=== PATIENT | female | born 1955 | race Caucasian/White ===

== ENCOUNTER 2020-05-11 10:19 | Outpatient (REF) | payer MEDICARE, BC, SELFPAY ==
[2020-05-11 10:32] LABS: MANUAL DIFF FLAG NO
[2020-05-11 10:53] LABS: Basophils Absolute Auto 0.1 X10*3/uL (0.0-0.2); Basophils Percent Auto 0.8 % (0-2); Eosinophils Absolute Auto 0.2 X10*3/uL (0.0-0.4); Eosinophils Percent Auto 2.3 % (0-4); Hematocrit 44.7 % (37-47); Hemoglobin 14.5 g/dl (12.0-16.0); Imm Gran Abs Auto 0.02 X10*3/uL (0.00-0.03); Imm Gran Pct Auto 0.3 % (0.0-0.4); Lymphocytes Absolute Auto 2.5 X10*3/uL (1.2-4.9); Lymphocytes Percent Auto 31.1 % (20-40); Mean Corpuscular HGB Conc 32.4 g/dl (31.0-35.0); Mean Corpuscular Hemoglobin 30.6 pg (27.0-33.0); Mean Corpuscular Volume 94.3 fL (80-98); Mean Platelet Volume 10.6 fL (9.4-12.3); Monocytes Absolute Auto 0.8 X10*3/uL (0.1-1.2); Monocytes Percent Auto 10.5 % (2-11); Neutrophils Absolute Auto 4.4 X10*3/uL (2.0-8.3); Platelet Count 324 X10*3/uL (160-400); Red Blood Count 4.74 X10*6/uL (4.20-5.50); Red Cell Distribution Width 13.1 % (11.0-16.0); White Blood Count 7.9 X10*3/uL (4.8-10.8)
[2020-05-11 11:04] LABS: Estimated Average Glucose 108 mg/dL; Hemoglobin A1c % 5.4 %
[2020-05-11 11:06] LABS: Glucose Urine UA NEG (NEG); Leukocyte Esterase Urine 1+ (NEG); Nitrite Urine NEG (NEG); PH 5.5 (5.0-8.0); Specific Gravity - Urine 1.025 (1.005-1.025); Urine Blood TRACE (NEG); Urine Ketones NEG (NEG); Urine Protein NEG (NEG-TRACE)
[2020-05-11 11:09] LABS: Appearance Urine HAZY; Color Urine YELLOW
[2020-05-11 11:38] LABS: RBC Urine 0-2 /HPF (0); Squamous Epithelial Cell Urine TRACE /LPF
[2020-05-11 11:39] LABS: Calcium Oxalate Crystals Urine 3+ /LPF
[2020-05-11 11:44] LABS: Alanine Aminotransferase 19 U/L (0-31); Albumin Level 4.2 g/dL (3.5-5.0); Alkaline Phosphatase 121 U/L (39-117); Anion Gap 13 (12-20); Aspartate Amino Transferase 22 U/L (5-31); Bilirubin Total 0.6 mg/dL (0.0-1.0); Blood Urea Nitrogen 14 mg/dL (9-16); Calcium 9.1 mg/dL (8.4-10.2); Carbon Dioxide 24 mmol/L (22-29); Chloride 107 mmol/L (96-108); Cholesterol 232 mg/dL; Estimated Glomerular Filt Rate > 60; Glucose Fasting 98 mg/dL (60-99); HDL Cholesterol 64 mg/dL; LDL Cholesterol Calculated 147 mg/dl; Potassium 4.3 mmol/L (3.3-5.1); Sodium 140 mmol/L (135-145); Triglycerides 106 mg/dL
[2020-05-11 11:51] LABS: Vitamin D 25-OH Total 15.4 ng/mL (>30)
== END 2020-05-11 10:20 | disposition home or self-care (01) ==
LOC: HO.LNP 10:19
PROVIDERS: Visit Provider Internal Medicine
DX: E55.9 Vitamin D deficiency, unspecified (principal); E78.00 Pure hypercholesterolemia, unspecified; R73.03 Prediabetes; M85.80 Other specified disorders of bone density and structure, unspecified site
CPT/HCPCS: 80053; 80061; 81001; 81003; 82306; 83036; 85025

== ENCOUNTER 2020-06-20 17:30 | Outpatient (REF) | payer MEDICARE, BC, SELFPAY | END 2020-06-20 17:31 | disposition home or self-care (01) | LOC: HO.LNP 17:30 | PROVIDERS: Visit Provider Internal Medicine | DX: Z13.89 Encounter for screening for other disorder (principal) | CPT/HCPCS: 87324; 87449 ==

== ENCOUNTER 2020-06-28 10:38 | Outpatient (REF) | payer MEDICARE, BC, SELFPAY ==
[2020-06-28 11:34] LABS: Glucose Urine UA NEG (NEG); Leukocyte Esterase Urine 1+ (NEG); Nitrite Urine NEG (NEG); PH 6.5 (5.0-8.0); Urine Blood NEG (NEG); Urine Ketones NEG (NEG); Urine Protein NEG (NEG-TRACE)
[2020-06-28 11:38] LABS: Appearance Urine CLEAR; Color Urine YELLOW
[2020-06-28 13:16] LABS: RBC Urine 0 /HPF (0); Squamous Epithelial Cell Urine 1+ /LPF
== END 2020-06-28 10:39 | disposition home or self-care (01) ==
LOC: HO.LNP 10:38
PROVIDERS: Visit Provider Internal Medicine
DX: N39.0 Urinary tract infection, site not specified (principal)
CPT/HCPCS: 81001; 87086

== ENCOUNTER 2020-11-30 11:23 | Outpatient (REF) | payer MEDICARE, BC, SELFPAY ==
--- NOTE | ~2020-11-30 | US_ITS ---
EXAMINATION: US VENOUS ULTRASOUND WITH DOPPLER LOWER EXTREMITY, BILATERAL CLINICAL INFORMATION: Pulmonary emboli COMPARISON: None TECHNIQUE: Ultrasound of the deep veins is performed from the hip to the calf with compression sonography and color and pulse Doppler assessment. Spectral analysis with color-flow imaging is performed. FINDINGS: RIGHT: There is normal venous compression and respiratory variation and augmented flow. The visualized common femoral vein, superficial femoral vein, profunda femoral vein, popliteal vein, and the trifurcation region shows no evidence of deep venous thrombosis. There is no popliteal fossa cyst. LEFT: There is normal venous compression and respiratory variation and augmented flow. The visualized common femoral vein, superficial femoral vein, profunda femoral vein, popliteal vein, and the trifurcation region shows no evidence of deep venous thrombosis. There is no popliteal fossa cyst. US/US venous duplex LE BI IMPRESSION: No DVT demonstrated in the bilateral lower extremity.
== END 2020-11-30 11:24 | disposition home or self-care (01) ==
LOC: HO.HMGCX 11:23
PROVIDERS: PCP Internal Medicine; Visit Provider Internal Medicine
DX: I26.94 Multiple subsegmental thrombotic pulmonary emboli without acute cor pulmonale (principal)
CPT/HCPCS: 93970

== ENCOUNTER 2021-05-21 10:46 | Outpatient (REF) | payer MEDICARE, SELFPAY ==
[2021-05-21 10:51] LABS: MANUAL DIFF FLAG NO
[2021-05-21 10:58] LABS: Basophils Percent Auto 0.5 % (0-2); Eosinophils Absolute Auto 0.1 X10*3/uL (0.0-0.4); Eosinophils Percent Auto 1.9 % (0-4); Hematocrit 44.9 % (37.0-47.0); Hemoglobin 14.4 g/dl (12.0-16.0); Imm Gran Abs Auto 0.01 X10*3/uL (0.00-0.03); Imm Gran Pct Auto 0.1 % (0.0-0.4); Lymphocytes Absolute Auto 2.6 X10*3/uL (1.2-4.9); Lymphocytes Percent Auto 35.2 % (20-40); Mean Corpuscular HGB Conc 32.1 g/dl (31.0-35.0); Mean Corpuscular Hemoglobin 30.7 pg (27.0-33.0); Mean Corpuscular Volume 95.7 fL (80.0-98.0); Mean Platelet Volume 10.4 fL (9.4-12.3); Monocytes Absolute Auto 0.7 X10*3/uL (0.1-1.2); Monocytes Percent Auto 9.1 % (2-11); Neutrophils Absolute Auto 3.9 x10*3/uL (2.0-8.3); Neutrophils Percent Auto 53.2 % (45-73); Platelet Count 293 X10*3/uL (160-400); Red Blood Count 4.69 X10*6/uL (4.20-5.50); Red Cell Distribution Width 12.9 % (11.0-16.0); White Blood Count 7.4 X10*3/uL (4.8-10.8)
[2021-05-21 11:12] LABS: Chloride 109 mmol/L (96-108); Potassium 4.3 mmol/L (3.3-5.1); Sodium 143 mmol/L (135-145)
[2021-05-21 11:13] LABS: Alanine Aminotransferase 14 U/L (0-31); Albumin Level 3.9 g/dL (3.5-5.0); Alkaline Phosphatase 100 U/L (39-117); Anion Gap 13 (12-20); Aspartate Amino Transferase 18 U/L (5-31); Bilirubin Total 0.5 mg/dL (0.0-1.0); Blood Urea Nitrogen 16 mg/dL (9-16); Calcium 9.1 mg/dL (8.4-10.2); Carbon Dioxide 25 mmol/L (22-29); Cholesterol 226 mg/dL; Estimated Glomerular Filt Rate > 60; Glucose Fasting 92 mg/dL (60-99); HDL Cholesterol 55 mg/dL; LDL Cholesterol Calculated 146 mg/dl; Total Protein 6.7 g/dL (6.5-8.0); Triglycerides 128 mg/dL
[2021-05-21 11:28] LABS: Vitamin D 25-OH Total 16.3 ng/mL (>30)
[2021-05-21 11:32] LABS: Estimated Average Glucose 111 mg/dL; Hemoglobin A1c % 5.5 %
== END 2021-05-21 10:47 | disposition home or self-care (01) ==
LOC: HO.LNP 10:46
PROVIDERS: Visit Provider Internal Medicine
DX: E55.9 Vitamin D deficiency, unspecified (principal); E78.00 Pure hypercholesterolemia, unspecified; R73.03 Prediabetes
CPT/HCPCS: 80053; 80061; 82306; 83036; 85025

== ENCOUNTER 2021-05-28 11:25 | Outpatient (REF) | payer MEDICARE, SELFPAY ==
[2021-05-28 11:51] LABS: Appearance Urine CLEAR; Color Urine YELLOW; Glucose Urine UA NEG (NEG); Leukocyte Esterase Urine 1+ (NEG); Nitrite Urine NEG (NEG); PH 5.5 (5.0-8.0); Specific Gravity - Urine >= 1.030 (1.005-1.025); Urine Blood NEG (NEG); Urine Ketones NEG (NEG); Urine Protein NEG (NEG-TRACE)
[2021-05-28 12:05] LABS: Calcium Oxalate Crystals Urine 2+ /LPF; Mucus Urine 1+ /LPF; RBC Urine 0 /HPF (0); WBC Urine 0-2 /HPF (0-4)
[2021-05-28 12:34] LABS: Creatinine Urine 115.57 mg/dL; Microalbum/Creatinine Ratio Ur 8.6 ug/mg cr
== END 2021-05-28 11:26 | disposition home or self-care (01) ==
LOC: HO.LNP 11:25
PROVIDERS: Visit Provider Internal Medicine
DX: R73.03 Prediabetes (principal)
CPT/HCPCS: 81001; 82043

== ENCOUNTER → 2021-06-12 10:10 | Outpatient (REF) | payer MEDICARE, SELFPAY ==
--- NOTE | 2021-06-12 10:15 | CA_ITS ---
Acquisition Time: 2021-06-12 10:15:12 Total Exercise Time: 00:04:03 Test Indications: chest pain at rest Medications: Protocol: GIULIANO Max HR: 142 BPM 92% of Pred: 153 BPM Max BP: 162/082 mmHG Max Work Load: 5.1 METS Exercise stress test with exercise 4 min 3 sec of Giuliano protocol ( speed in stage 2 reduced to 2.0 MPH) with moderate shortness of breath and request to stop exercise, no chest discomfort, with isolated PACs, one 3 beat atrial run, one ventricular cuplet at peak, with normotensive response to exercise, with EKG changes meeting criteria for ischemia: upsloping ST depressions inferiorly and V3-V6 then in recovery the ST segments become horizontal and then slightly downsloping before returning to baseline. Shortness of breath resolved in recovery. Test reviewed with Dr Rajan. Called Dr Abdi office, report given and recommendation for pharm nuclear stress test. Referred By: Cholo Abdi Overread By: PINKY ESCALANTE
== END ==
LOC: HO.CARD 10:10
PROVIDERS: PCP Internal Medicine; Visit Provider Internal Medicine
DX: R07.9 Chest pain, unspecified (principal)
CPT/HCPCS: 93017

== ENCOUNTER → 2021-07-12 08:56 | Outpatient (REF) | payer MEDICARE, SELFPAY ==
--- NOTE | ~2021-07-12 | NM_ITS ---
Lexiscan Myocardial perfusion study Indication: Chest pain, assess for coronary disease and ischemia Technique: The patient was brought in for a Lexiscan perfusion study on 07/12/2021 and was injected 0.4 mg of Lexiscan intravenously. Within a minute of this injection 25 mCi of sestamibi was given intravenously. Images were obtained using the SPECT gamma camera interlaced with the gating device. Images were obtained in supine position. Resting perfusion study was performed on 07/16/2021. Patient was administered 25 mCi of sestamibi intravenously at rest. Images were then obtained in supine position. Total DLP 90mGy-cm. Images were processed with the software and compared side to side in short axis, horizontal long axis and vertical long axis views. Findings: Raw acquisition reviewed. The stress perfusion study showed slightly reduced tracer uptake in the basal to mid inferior septal and infero- lateral wall. There is improvement with CT attenuation correction and hence could all be artifactual. The gated study shows normal LV systolic function with calculated LVEF of 67%. LV cavity is normal in size. The gated study shows normal wall thickening and contraction of segments. Resting study shows minimally reduced tracer uptake in the basal to mid inferior septum. There is improvement with CT attenuation correction. Gating at rest reveals normal wall motion with ejection fraction at 68%. The findings are consistent with no definite reversible or fixed perfusion defects. NM/NM nancy perf SPECT rest & str Impression: 1. Myocardial perfusion imaging study shows likely normal myocardial perfusion. No definitive evidence of any ischemia or infarction. 2. Gated LVEF is 67% during stress and 68% during rest. 3. Transient ischemic dilatation not present. EKG component of the test reported separately.
--- NOTE | 2021-07-12 09:00 | CA_ITS ---
Acquisition Time: 2021-07-12 09:16:52 Total Exercise Time: 00:02:00 Test Indications: ABN ETT Medications: SEE CHART Protocol: LEXISCAN Max HR: 122 BPM 79% of Pred: 153 BPM Max BP: 128/086 mmHG Max Work Load: 1.6 METS Pharmacological stress test with Lexiscan injection, while walking slow on treadmill without anginal symptoms, without arrythmia, with normotensive response to injection, with nondiagnostic EKG for ischemia. Through recovery there was borderline ST depression, nondiagnostic. She was treated with Aminophylline 75mg IVP to reverse Lexiscan. Nuclear images pending. Test reviewed with Dr Rajan. Referred By: Cholo Abdi Overread By: PINKY ESCALANTE
== END ==
LOC: HO.CARD 08:56
PROVIDERS: PCP Internal Medicine; Visit Provider Internal Medicine
DX: R94.39 Abnormal result of other cardiovascular function study (principal)
CPT/HCPCS: 78452; 93017; A9500; J0280; J2785

== ENCOUNTER 2021-07-16 08:49 | Outpatient (REF) | payer MEDICARE, SELFPAY ==
--- NOTE | ~2021-07-16 | MM_ITS ---
EXAMINATION: BONE DENSITOMETRY CLINICAL INDICATION: Screening. COMPARISON: Previous BD dated 08/27/2018 and baseline BD dated 09/20/2013. TECHNIQUE: Using a [employer] DXA System (software version: 13.1) manufactured by [employer], dual-energy x-ray absorptiometry was performed of the lumbar spine and left hip. The images are of good technical quality. Summary results are attached. FINDINGS: AP SPINE L1-L4: Current: BMD 0.842 g/cm2, Z-score -1.3, T-score -2.8, osteoporosis, 9.9% decrease from previous, 12.5% decrease from baseline (<5% change is not significant). Prior: BMD 0.934 g/cm2. Baseline: BMD 0.962 g/cm2. LEFT FEMUR, NECK: Current: BMD 0.721 g/cm2, Z-score -0.8, T-score -2.3, osteopenia. Prior: BMD 0.813 g/cm2. Baseline: BMD 0.836 g/cm2. LEFT FEMUR, TOTAL: Current: BMD 0.706 g/cm2, Z-score -1.1, T-score -2.4, osteopenia, 12.4% decrease from previous, 16.8% decrease from baseline (<5% change is not significant). Prior: BMD 0.806 g/cm2. Baseline: BMD 0.849 g/cm2. IDENTIFIED RISK FACTORS: Menopause. HISTORY OF FRACTURE: None listed. MEDICATIONS: None listed. MM/XR DEXA axial skeleton IMPRESSION: 1. DIAGNOSIS: Osteoporosis based on the lowest T-score value of -2.8 in the lumbar spine applying World Health Organization criteria. 2. 10-YEAR FRACTURE RISK PREDICTION, FRAX: According to the guidelines, FRAX calculation should only be performed on patients in the osteopenia bone density category. Therefore, FRAX was not performed on this patient. 3. Treatment Recommendations: NOF guidelines recommend consideration for treatment in postmenopausal women and men age 50 and older presenting with the following: -A hip or vertebral (clinical or morphometric) fracture. -T-score less than or equal to -2.5 at the femoral neck or spine after appropriate evaluation to exclude secondary causes. -Low bone mass at the hip or spine and a 10-year fracture probability by FRAX of greater than or equal to 3% for hip fracture or greater than or equal to 20% for major osteoporotic fracture based on the [place] adapted WHO algorithm. 4. Other Recommendations: All treatment decisions require clinical judgment and consideration of individual patient factors, including patient preferences, comorbidities, previous drug use, risk factors not captured in the FRAX model (e.g. frailty, falls, vitamin D deficiency, increased bone turnover, interval significant decline in bone density) and possible under or overestimation of fracture risk by FRAX. Additional medical evaluation for secondary cause of low bone mineral density may be appropriate. FUTURE SCAN RECOMMENDATION: People with diagnosed cases of osteoporosis or at high risk for fracture should have regular bone mineral density tests. For patients eligible for Medicare, routine testing is allowed once every 2 years. The testing frequency can be increased to one year for patients who have rapidly progressing disease, those who are receiving or discontinuing medical therapy to restore bone mass, or have additional risk factors.
== END 2021-07-16 08:50 | disposition home or self-care (01) ==
LOC: HO.MAMMO 08:49
PROVIDERS: PCP Internal Medicine; Visit Provider Internal Medicine
DX: Z13.820 Encounter for screening for osteoporosis (principal); M85.80 Other specified disorders of bone density and structure, unspecified site; Z78.0 Asymptomatic menopausal state
CPT/HCPCS: 77080

== ENCOUNTER → 2021-09-13 08:50 | Outpatient (BNVA) | payer MEDICARE, SELFPAY | PROVIDERS: PCP Internal Medicine; Referring Provider Internal Medicine; Visit Provider Internal Medicine Cardiovascular Disease | DX: R94.39 Abnormal result of other cardiovascular function study (principal) | CPT/HCPCS: 93005; 99202 ==

== ENCOUNTER → 2021-09-19 08:13 | Outpatient (BNVA) | payer MEDICARE, SELFPAY | PROVIDERS: PCP Internal Medicine; Visit Provider Internal Medicine Endocrinology, Diabetes & Metabolism | DX: M81.0 Age-related osteoporosis without current pathological fracture (principal) | CPT/HCPCS: Q3014 ==

== ENCOUNTER 2021-10-17 10:22 | Outpatient (REF) | payer MEDICARE, SELFPAY ==
[2021-10-17 11:28] LABS: Hematocrit 39.8 % (37.0-47.0); Hemoglobin 13.3 g/dl (12.0-16.0); Mean Corpuscular HGB Conc 33.4 g/dl (31.0-35.0); Mean Corpuscular Volume 92.8 fL (80.0-98.0); Mean Platelet Volume 10.6 fL (9.4-12.3); Platelet Count 260 X10*3/uL (160-400); Red Blood Count 4.29 X10*6/uL (4.20-5.50); Red Cell Distribution Width 12.9 % (11.0-16.0); White Blood Count 9.9 X10*3/uL (4.8-10.8)
[2021-10-17 11:50] LABS: INTERNATIONAL NORM RATIO 0.9 (0.9-1.1); Prothrombin Time 10.7 SEC (10.0-13.1)
[2021-10-17 12:24] LABS: Anion Gap 16 (12-20); Blood Urea Nitrogen 12 mg/dL (9-16); Calcium 9.5 mg/dL (8.4-10.2); Carbon Dioxide 23 mmol/L (22-29); Chloride 109 mmol/L (96-108); Estimated Glomerular Filt Rate > 60; Glucose Random 112 mg/dL (60-115); Phosphorus 4.4 mg/dL (2.7-4.5); Sodium 144 mmol/L (135-145)
[2021-10-17 12:34] LABS: Free T4 (Free Thyroxine) 0.95 ng/dL (0.71-1.85); Vitamin D 25-OH Total 20.3 ng/mL (>30)
[2021-10-22 23:33] LABS: Prot Elec - Albumin 3.9 g/dL (3.8-4.8); Prot Elec - Alpha1 0.3 g/dL (0.2-0.3); Prot Elec - Alpha2 0.7 g/dL (0.5-0.9); Prot Elec - Beta 1 0.4 g/dL (0.4-0.6); Prot Elec - Beta 2 0.4 g/dL (0.2-0.5); Prot Elec - Gamma 0.7 g/dL (0.8-1.7); Prot Elec - Total Protein 6.4 g/dL (6.1-8.1)
[2021-10-23 03:42] LABS: N-Telopeptide 15 (see note); NTXCreaRU 16 mg/dL (20-275)
== END 2021-10-17 10:23 | disposition home or self-care (01) ==
LOC: HO.LAB 10:22
PROVIDERS: Absent Provider Internal Medicine Endocrinology, Diabetes & Metabolism; PCP Internal Medicine; Visit Provider Internal Medicine Cardiovascular Disease
DX: R94.39 Abnormal result of other cardiovascular function study (principal); M81.0 Age-related osteoporosis without current pathological fracture
CPT/HCPCS: 36415; 80048; 82306; 82523; 84100; 84165; 84439; 84443; 85027; 85610; 86335

== ENCOUNTER → 2021-11-27 14:41 | Outpatient (BNVA) | payer MEDICARE, SELFPAY | PROVIDERS: PCP Internal Medicine; Referring Provider Internal Medicine; Visit Provider Internal Medicine Cardiovascular Disease | DX: R94.39 Abnormal result of other cardiovascular function study (principal) | CPT/HCPCS: 99212 ==

== ENCOUNTER → 2022-03-12 10:25 | Outpatient (BNVA) | payer MEDICARE, SELFPAY | PROVIDERS: PCP Internal Medicine; Visit Provider Anesthesiology | DX: M17.12 Unilateral primary osteoarthritis, left knee (principal); M25.562 Pain in left knee | CPT/HCPCS: 99202 ==

== ENCOUNTER 2022-09-04 11:51 | Outpatient (REF) | payer MEDICARE, SELFPAY ==
[2022-09-04 12:00] LABS: MANUAL DIFF FLAG NO
[2022-09-04 12:33] LABS: Appearance Urine Clear; Color Urine Yellow; Glucose Urine UA Negative (Negative); Leukocyte Esterase Urine Moderate (2+) (Negative); Nitrite Urine Negative (Negative); Specific Gravity - Urine 1.015 (1.005-1.025); UMIC TRIGGER UACC YES; Urine Blood Negative (Negative); Urine Ketones Negative (Negative); Urine Protein Negative (Neg-Trace)
[2022-09-04 12:35] LABS: Basophils Absolute Auto 0.1 X10*3/uL (0.0-0.2); Basophils Percent Auto 0.9 % (0-2); Eosinophils Absolute Auto 0.2 X10*3/uL (0.0-0.4); Eosinophils Percent Auto 2.6 % (0-4); Hematocrit 44.4 % (37.0-47.0); Hemoglobin 14.3 g/dl (12.0-16.0); Imm Gran Abs Auto 0.02 X10*3/uL (0.00-0.03); Imm Gran Pct Auto 0.2 % (0.0-0.4); Lymphocytes Absolute Auto 2.4 X10*3/uL (1.2-4.9); Lymphocytes Percent Auto 29.1 % (20-40); Mean Corpuscular HGB Conc 32.2 g/dl (31.0-35.0); Mean Corpuscular Hemoglobin 30.6 pg (27.0-33.0); Mean Corpuscular Volume 94.9 fL (80.0-98.0); Mean Platelet Volume 10.3 fL (9.4-12.3); Monocytes Absolute Auto 0.8 X10*3/uL (0.1-1.2); Monocytes Percent Auto 9.2 % (2-11); Neutrophils Absolute Auto 4.7 x10*3/uL (2.0-8.3); Platelet Count 292 X10*3/uL (160-400); Red Blood Count 4.68 X10*6/uL (4.20-5.50); Red Cell Distribution Width 13.2 % (11.0-16.0); White Blood Count 8.1 X10*3/uL (4.8-10.8)
[2022-09-04 12:41] LABS: Bacteria Urine None Seen (None Seen); Hyaline Casts Urine 0-2 /LPF (0-2); RBC Urine 0-2 /HPF (0-2); Squamous Epithelial Cell Urine 0-2 /HPF (0-2); WBC Urine 0-5 /HPF (0-5)
[2022-09-04 12:48] LABS: Estimated Average Glucose 105 mg/dL; Hemoglobin A1c % 5.3 %
[2022-09-04 12:56] LABS: Alanine Aminotransferase 14 U/L (0-31); Albumin Level 3.9 g/dL (3.5-5.0); Alkaline Phosphatase 94 U/L (39-117); Anion Gap 13 (12-20); Aspartate Amino Transferase 17 U/L (5-31); Bilirubin Total 0.5 mg/dL (0.0-1.0); Blood Urea Nitrogen 13 mg/dL (9-16); Calcium 9.4 mg/dL (8.4-10.2); Carbon Dioxide 24 mmol/L (22-29); Chloride 111 mmol/L (96-108); Cholesterol 235 mg/dL; Estimated Glomerular Filt Rate > 60; Glucose Fasting 91 mg/dL (60-99); HDL Cholesterol 55 mg/dL; LDL Cholesterol Calculated 159 mg/dl; Potassium 4.3 mmol/L (3.3-5.1); Sodium 144 mmol/L (135-145); Total Protein 6.4 g/dL (6.5-8.0); Triglycerides 106 mg/dL
[2022-09-04 13:11] LABS: Vitamin D 25-OH Total 25.3 ng/mL (>30)
[2022-09-04 13:32] LABS: Creatinine Urine 87.07 mg/dL; Microalbum/Creatinine Ratio Ur 6.8 ug/mg cr
== END 2022-09-04 11:52 | disposition home or self-care (01) ==
LOC: HO.LNP 11:51
PROVIDERS: Visit Provider Internal Medicine
DX: E55.9 Vitamin D deficiency, unspecified (principal); E78.00 Pure hypercholesterolemia, unspecified; R73.03 Prediabetes
CPT/HCPCS: 80053; 80061; 81001; 82043; 82306; 83036; 85025

== ENCOUNTER 2022-09-17 09:48 | Outpatient (REF) | payer MEDICARE, SELFPAY ==
[2022-09-17 11:48] LABS: Vitamin D 25-OH Total 28.5 ng/mL (>30)
== END 2022-09-17 09:49 | disposition home or self-care (01) ==
LOC: HO.LAB 09:48
PROVIDERS: PCP Internal Medicine; Visit Provider Internal Medicine Endocrinology, Diabetes & Metabolism
DX: M81.0 Age-related osteoporosis without current pathological fracture (principal)
CPT/HCPCS: 82306; 86335

== ENCOUNTER 2022-09-20 09:38 | Outpatient (REF) | payer MEDICARE, SELFPAY ==
[2022-09-20 11:27] LABS: Total Volume 24 Hour Urine 2200 mL
[2022-09-20 11:43] LABS: Creatinine, 24Hr Urine 0.9 G/Day (1.0-2.0)
[2022-09-22 18:18] LABS: Calcium, 24 Hr Urine 288 mg/24 h; Calcium/Creatinine Ratio 328 mg/g creat (30-275); Creatinine 24Hr Urine 0.88 g/24 h (0.50-2.15)
== END 2022-09-20 09:39 | disposition home or self-care (01) ==
LOC: HO.LNP 09:38
PROVIDERS: Visit Provider Internal Medicine Endocrinology, Diabetes & Metabolism
DX: M81.0 Age-related osteoporosis without current pathological fracture (principal)
CPT/HCPCS: 82340; 82570

== ENCOUNTER 2022-09-22 13:50 | Outpatient (REF) | payer MEDICARE, SELFPAY ==
--- NOTE | ~2022-09-22 | US_ITS ---
EXAMINATION: US VENOUS WITH DOPPLER UPPER EXTREMITY, LEFT CLINICAL INFORMATION: Left arm mass. COMPARISON: None available. TECHNIQUE: Ultrasound of the upper extremity is performed using compression sonography and color and pulse Doppler flow with assessment of augmentation of flow. There is also imaging and Doppler assessment of the jugular and subclavian veins. Spectral analysis with color-flow imaging is performed. FINDINGS: Respiratory variation, normal compression, and augmented flow are noted throughout the upper extremity including the axillary, brachial, cubital, and radial and ulnar veins. There is normal flow in the internal jugular and subclavian veins. There is no visible deep or superficial thrombophlebitis. In the left antecubital fossa there are 2 hypoechoic areas cystic and solid measuring 2.5 x 0.8 x 1.4 cm and 2.2 x 0.9 x 1.6 cm. There are likely small hematomas. US/US venous duplex UE LT IMPRESSION: 1. No DVT demonstrated in the left upper extremity. 2. There are 2 hypoechoic areas in the left antecubital foci likely hematomas.
== END 2022-09-22 13:51 | disposition home or self-care (01) ==
LOC: HO.US 13:50
PROVIDERS: PCP Internal Medicine; Visit Provider Internal Medicine
DX: R22.32 Localized swelling, mass and lump, left upper limb (principal)
CPT/HCPCS: 93971

== ENCOUNTER 2022-10-22 08:56 | Outpatient (AMB) | payer MEDICARE, SELFPAY ==
--- NOTE | 2022-10-22 09:04 | MHC.OFFVIS ---
Intake Vital Signs 10/22/22 09:07 Height 5 ft 4.72 in Weight 154 lb 15.759 oz BMI 26.0 BP 120/76 Blood Pressure Location Lt brachial Position Sitting Pulse 60 Pulse Source Pulse Oximeter Intake Visit Reasons: f/u osteoporosis and vitamin D deficency Intake Note: Patient present for Osteoporosis and Vitamin D Deficiency follow up visit. 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 First diagnosed in this yr .Dexa 2 yrs ago did not show osteoporosis Not Received treatment No history of pathologic fracture or ONJ. Has 2 servings of dietary calcium per day in the form of milk . Not Takes Calcium supplement Takes 2000 IU of Vitamin D daily. Denies ever using PPI, anticoagulant, antiepileptic or glucocorticoid medication. 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 UTD on dental cleanings and sees dentist every 6 months. No planned upcoming dental work or extractions. DXA dated 07/16/21:FINDINGS: AP SPINE L1-L4: Current: BMD 0.842 g/cm2, Z-score -1.3, T-score -2.8, osteoporosis, 9.9% decrease from previous, 12.5% decrease from baseline (<5% change is not significant). Prior: BMD 0.934 g/cm2. Baseline: BMD 0.962 g/cm2. LEFT FEMUR, NECK: Current: BMD 0.721 g/cm2, Z-score -0.8, T-score -2.3, osteopenia. Prior: BMD 0.813 g/cm2. Baseline: BMD 0.836 g/cm2. LEFT FEMUR, TOTAL: Current: BMD 0.706 g/cm2, Z-score -1.1, T-score -2.4, osteopenia, 12.4% decrease from previous, 16.8% decrease from baseline (<5% change is not significant). Prior: BMD 0.806 g/cm2. Baseline: BMD 0.849 g/cm2. IDENTIFIED RISK FACTORS: Menopause. HISTORY OF FRACTURE: None listed. MEDICATIONS: None listed. MM/XR DEXA axial skeleton IMPRESSION: 1. DIAGNOSIS: Osteoporosis based on the lowest T-score value of -2.8 in the lumbar spine applying World Health Organization criteria.? ? Labs: [facility] Medical History Osteoporosis Surgical History History of appendectomy History of total right knee replacement Family History Mother Thyroid cancer Father Stroke Brother No problems noted. Sister No problems noted. Social History Household Members: Spouse and Children Household Members Other:: , adult daughter Alcohol intake: current Alcohol intake frequency: holidays/special occasions only Alcohol type: wine Patient Tobacco Use Status: Former Tobacco user Quit Date: over 30 yrs ago Physical Exam Vital Signs: Last Vital Signs Pulse 60 10/22/22 09:07 BP 120/76 10/22/22 09:07 BMI result Body Mass Index 26.0 Assessment & Plan Assessment & Plan (1) Osteoporosis: Code(s): M81.0 - Age-related osteoporosis without current pathological fracture Plan: This 66-year-old white female with a history of osteoporosis. Vitamin D is now replete. Secondary workup did reveal hypercalciuria Plan is to start low-dose hydrochlorothiazide 12.5 mg. Will recheck basic metabolic panel in 10 days. Will also reassess 24 hour urine for calcium, sodium creatinine, basic metabolic panel and calcium in 3 months. Patient was also told to restrict sodium Orders: Orders Basic Metabolic Panel 10 Days M81.0 - Age-related osteoporosis without current pathological fracture Basic Metabolic Panel Fasting 3 Months M81.0 - Age-related osteoporosis without current pathological fracture Calcium, 24 Hr Ur 3 Months M81.0 - Age-related osteoporosis without current pathological fracture Creatinine, 24 Hr Group 3 Months M81.0 - Age-related osteoporosis without current pathological fracture Calcium 3 Months M81.0 - Age-related osteoporosis without current pathological fracture Sodium, 24Hr Urine Group Today M81.0 - Age-related osteoporosis without current pathological fracture Medications: New hydrochlorothiazide 12.5 mg PO DAILY 30 tabs 5RF Coding Level of Care Code Est Pt Level 3 (21721) Diagnoses Osteoporosis M81.0
[2022-10-22 09:07] VITALS: BP 120/76; PULSE 60; BMI 26.0
== END 2022-10-22 10:26 | disposition home or self-care (01) ==
PROVIDERS: PCP Internal Medicine; Visit Provider Internal Medicine Endocrinology, Diabetes & Metabolism
DX: M81.0 Age-related osteoporosis without current pathological fracture (principal)
CPT/HCPCS: 99213

== ENCOUNTER → 2022-10-22 08:56 | Outpatient (BNVA) | payer MEDICARE, SELFPAY | PROVIDERS: Visit Provider Internal Medicine Endocrinology, Diabetes & Metabolism | DX: M81.0 Age-related osteoporosis without current pathological fracture (principal); E55.9 Vitamin D deficiency, unspecified; Z78.0 Asymptomatic menopausal state | CPT/HCPCS: 99212 ==

== ENCOUNTER 2023-01-13 10:32 | Outpatient (REF) | payer MEDICARE, SELFPAY ==
[2023-01-13 11:24] LABS: Influenza A PCR NEGATIVE (Negative); Influenza B PCR NEGATIVE (Negative); Resp Syncy Virus RNA Qual PCR POSITIVE (Negative); SARS COV2 PCR INHOUSE NEGATIVE (Negative)
== END 2023-01-13 10:33 | disposition home or self-care (01) ==
LOC: HO.LAB 10:32
PROVIDERS: PCP Internal Medicine; Visit Provider Internal Medicine
DX: R05.1 Acute cough (principal); Z11.52 Encounter for screening for COVID-19
CPT/HCPCS: 0241U

== ENCOUNTER 2023-09-08 11:44 | Outpatient (REF) | payer MEDICARE, SELFPAY ==
[2023-09-08 11:47] LABS: MANUAL DIFF FLAG NO
[2023-09-08 12:22] LABS: Basophils Absolute Auto 0.1 X10*3/uL (0.0-0.2); Basophils Percent Auto 0.9 % (0-2); Eosinophils Absolute Auto 0.2 X10*3/uL (0.0-0.4); Eosinophils Percent Auto 3.3 % (0-4); Hematocrit 43.8 % (37.0-47.0); Hemoglobin 14.5 g/dl (12.0-16.0); Imm Gran Abs Auto 0.01 X10*3/uL (0.00-0.03); Imm Gran Pct Auto 0.2 % (0.0-0.4); Lymphocytes Absolute Auto 2.2 X10*3/uL (1.2-4.9); Lymphocytes Percent Auto 33.4 % (20-40); Mean Corpuscular HGB Conc 33.1 g/dl (31.0-35.0); Mean Corpuscular Hemoglobin 31.6 pg (27.0-33.0); Mean Corpuscular Volume 95.4 fL (80.0-98.0); Mean Platelet Volume 10.5 fL (9.4-12.3); Monocytes Absolute Auto 0.6 X10*3/uL (0.1-1.2); Monocytes Percent Auto 9.2 % (2-11); Neutrophils Absolute Auto 3.5 x10*3/uL (2.0-8.3); Platelet Count 300 X10*3/uL (160-400); Red Blood Count 4.59 X10*6/uL (4.20-5.50); Red Cell Distribution Width 13.2 % (11.0-16.0); White Blood Count 6.7 X10*3/uL (4.8-10.8)
[2023-09-08 12:31] LABS: Estimated Average Glucose 111 mg/dL; Hemoglobin A1c % 5.5 % (<6.0)
[2023-09-08 12:52] LABS: Appearance Urine Cloudy; Color Urine Yellow; Glucose Urine UA Negative (Negative); Leukocyte Esterase Urine Large (3+) (Negative); Nitrite Urine Negative (Negative); UMIC TRIGGER UACC YES; Urine Blood Negative (Negative); Urine Ketones Negative (Negative); Urine Protein Negative (Neg-Trace)
[2023-09-08 12:55] LABS: Alanine Aminotransferase 15 U/L (0-31); Albumin Level 3.8 g/dL (3.5-5.0); Alkaline Phosphatase 99 U/L (39-117); Anion Gap 11 (12-20); Aspartate Amino Transferase 19 U/L (5-31); Bilirubin Total 0.6 mg/dL (0.0-1.0); Blood Urea Nitrogen 16 mg/dL (9-16); Calcium 9.6 mg/dL (8.4-10.2); Carbon Dioxide 26 mmol/L (22-29); Chloride 109 mmol/L (96-108); Cholesterol 217 mg/dL (<200); Estimated Glomerular Filt Rate > 60; Glucose Random 85 mg/dL (60-115); HDL Cholesterol 52 mg/dL (>40); LDL Cholesterol Calculated 144 mg/dL (<100); Potassium 4.4 mmol/L (3.3-5.1); Sodium 142 mmol/L (135-145); Total Protein 6.7 g/dL (6.5-8.0); Triglycerides 106 mg/dL (<150)
[2023-09-08 12:58] LABS: Vitamin D 25-OH Total 31.6 ng/mL (>30)
[2023-09-08 12:59] LABS: Bacteria Urine 2+ (None Seen); Hyaline Casts Urine 0-2 /LPF (0-2); RBC Urine 0-2 /HPF (0-2); UACC Culture Trigger YES; WBC Urine 21-50 /HPF (0-5)
[2023-09-08 13:19] LABS: Creatinine Urine 112.55 mg/dL; Microalbum/Creatinine Ratio Ur 7.9 ug/mg cr (<30)
== END 2023-09-08 11:45 | disposition home or self-care (01) ==
LOC: HO.LNP 11:44
PROVIDERS: Visit Provider Internal Medicine
DX: E55.9 Vitamin D deficiency, unspecified (principal); E78.00 Pure hypercholesterolemia, unspecified; R73.03 Prediabetes; I25.10 Atherosclerotic heart disease of native coronary artery without angina pectoris
CPT/HCPCS: 80053; 80061; 81001; 82043; 82306; 82570; 83036; 85025; 87086

== ENCOUNTER 2023-09-29 13:14 | Outpatient (REF) | payer MEDICARE, SELFPAY ==
--- NOTE | ~2023-09-29 | US_ITS ---
EXAMINATION: US EXTREMITY, NONVASCULAR CLINICAL INFORMATION: Soft tissue mass left antecubital fossa. COMPARISON: None available. TECHNIQUE: High-frequency linear ultrasound transducer was used to examine the area of clinical concern in the antecubital fossa. FINDINGS: There is an ovoid mass measuring 2.4 x 0.8 x 4.3 cm and has identical echogenicity of the surrounding fat. There is no internal vascularity. No fluid collections. Visualized vascular structures are unremarkable. US/US extremity nonvascular IMPRESSION: The mass in the antecubital fossa has characteristics consistent with a benign lipoma.
== END 2023-09-29 13:15 | disposition home or self-care (01) ==
LOC: HO.US 13:14
PROVIDERS: PCP Internal Medicine; Visit Provider Internal Medicine
DX: M79.89 Other specified soft tissue disorders (principal)
CPT/HCPCS: 76882

== ENCOUNTER 2023-12-04 11:31 | Outpatient (REF) | payer MEDICARE, SELFPAY ==
[2023-12-04 11:57] LABS: Alanine Aminotransferase 46 U/L (0-31); Albumin Level 3.9 g/dL (3.5-5.0); Alkaline Phosphatase 119 U/L (39-117); Aspartate Amino Transferase 32 U/L (5-31); Bilirubin Direct 0.2 mg/dL (0.0-0.5); Bilirubin Total 0.4 mg/dL (0.0-1.0); Cholesterol 153 mg/dL (<200); HDL Cholesterol 56 mg/dL (>40); LDL Cholesterol Calculated 84 mg/dL (<100); Total Protein 6.9 g/dL (6.5-8.0); Triglycerides 67 mg/dL (<150)
== END 2023-12-04 11:32 | disposition home or self-care (01) ==
LOC: HO.LNP 11:31
PROVIDERS: Visit Provider Internal Medicine
DX: I25.10 Atherosclerotic heart disease of native coronary artery without angina pectoris (principal)
CPT/HCPCS: 80061; 80076

== ENCOUNTER 2024-02-08 11:55 | Outpatient (REF) | payer MEDICARE, SELFPAY ==
[2024-02-08 13:20] LABS: Alanine Aminotransferase 19 U/L (0-31); Albumin Level 3.9 g/dL (3.5-5.0); Alkaline Phosphatase 106 U/L (39-117); Aspartate Amino Transferase 26 U/L (5-31); Bilirubin Direct 0.2 mg/dL (0.0-0.5); Bilirubin Total 0.4 mg/dL (0.0-1.0); Total Protein 6.8 g/dL (6.5-8.0)
== END 2024-02-08 11:56 | disposition home or self-care (01) ==
LOC: HO.LNP 11:55
PROVIDERS: Visit Provider Internal Medicine
DX: I25.10 Atherosclerotic heart disease of native coronary artery without angina pectoris (principal)
CPT/HCPCS: 80076

== ENCOUNTER 2024-07-07 15:33 | Outpatient (REF) | payer MEDICARE, SELFPAY ==
--- NOTE | ~2024-07-07 | XR_ITS ---
CLINICAL HISTORY: ecchymosis of forearm 3 views left hand Comparison: None Findings: No dislocations. In the lateral view there is a 3 mm chip fracture of the triquetrum, age undetermined There is moderate degenerative narrowing of the 1st CMC joint No radiopaque foreign body Impression: 1. Possible small chip fracture of the posterior triquetrum. Check point tenderness. 2. There is 4 mm widening of the scapholunate distance, which is sometimes associated with scapholunate ligament tear. This document has been electronically signed by: Enoch Snyder MD on 07/07/2024 16:52:41
--- NOTE | ~2024-07-07 | XR_ITS ---
CLINICAL HISTORY: Ecchymosis of forearm 3 views left wrist Comparison: None Findings: No joint dislocations . There is advanced degenerative narrowing of the 1st CMC joint No radiopaque foreign body Impression: There is a transverse nondisplaced mildly impacted fracture of the distal radius metaphysis. Distal ulna is unremarkable. Radial-ulnar joint distance is normal This document has been electronically signed by: Enoch Snyder MD on 07/07/2024 16:54:02
--- OUTSIDE RECORDS SUMMARY | 2024-07-07 17:15 | XMS_ITS | Patient Health Record ---
Author Organization [facility] Address [address] [place] [address] Care Team Providers Care Naturopath Name Role Phone Cholo Abdi MD Primary Care Provider Hilaria Tafoya Unavailable [phone] Allergies Allergen (clinical drug ingredient) Drug/Non Drug Allergy documented on EMR Reaction Allergy Type Onset Date Status meperidine Demerol vomiting Drug Allergy Active Reason For Referral No Information Medications Medication SIG (Take, Route, Frequency, Duration) Notes Start Date End Date Status Eliquis Not-Taking Ciclopirox Olamine 0.77 % 1 application to affected area Externally Twice a day for 30 days Active LamISIL 250 MG 1 tablet Orally Once a day for 30 days Not-Taking Ibuprofen PRN Active Immunizations Vaccine Route Administration Date Status Comme nts COVID-19 Stew & Stew/Prema Unknown 03/21/2021 Administered First Dose:07/30/20 Booster Shot is pfizer Social History Tobacco Use: Social History Observation Description Date Details (start date - stop date) Never Smoker NA - NA Tobacco use other than smoking: Question Answer Notes Are you an other tobacco user? No Tobacco Control (Standard) Question Answer Notes Tobacco use: Nonsmoker Additional Findings: Tobacco non-user Current no nsmoker AUDIT-C (Standard) Question Answer Notes Did you have a drink containing alcohol in the p ast year? 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 ; Pain in right toe(s) M79.674 and Pain in left toe(s) M79.[address] [address] 02/23/2024 Hilaria Perica 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 ; Pain in right toe(s) M79.674 and Pain in left toe(s) M79.[address] [address] 05/17/2024 Hilaria Perica 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 ; Pain in right toe(s) M79.674 and Pain in left toe(s) M79.675 Assessments Encounter Date Diagnosis (ICD Code) Assessment Notes Treatment Notes Treatment Clinical Notes Section Notes 09/18/2023 Pain in right toe(s) (ICD-10 - M79.674) 09/18/2023 Fungal infection of nail (ICD-10 - B35.1) 12/02/2023 Fungal infection of nail (ICD-10 - B35.1) 02/23/2024 Fungal infection of nail (ICD-10 - B35.1) 05/17/2024 Fungal infection of nail (ICD-10 - B35.1) 02/23/2024 Pain in right toe(s) (ICD-10 - M79.674) 05/17/2024 Pain in right toe(s) (ICD-10 - M79.674) 12/02/2023 Pain in right toe(s) (ICD-10 - M79.674) 09/18/2023 Pain in left toe(s) (ICD-10 - M79.675) 12/02/2023 Pain in left toe(s) (ICD-10 - M79.675) 02/23/2024 Pain in left toe(s) (ICD-10 - M79.675) 05/17/2024 Pain in left toe(s) (ICD-10 - M79.675) Plan Of Treatment Pending Test Test Name Order Date *Liver Function Test (LFT) 07/18/2022 Next Appt Details Provider Name:Hilaria zimmerman, 08/03/2024 09:30:00 AM, [address] [place] [address], [phone], Insurance Providers Payer Name Payer Address Payer Phone Subscriber Number Group Number Insured Name Patient Relationship to Insured Coverage Start Date Coverage End Date Medicare [employer] [address] [place] [address] [id number] Rona Cooper Self - patient is the insured [employer] [address] [place] [address] [phone] [id number] Rona Cooper Self - patient is the insured Medical (General) History Medical History History ICD Code Back,Hip,and Knee pain Surgical History Surgery Date(Month/Year) Appendix 1968 Knee replacement Surgery - right knee
--- OUTSIDE RECORDS SUMMARY | 2024-07-07 17:15 | XMS_ITS ---
Author Organization [facility] Christine serenity [place] Address [address] [place] [address] Care Team Providers Care Digital Circuit Designer Name Role Phone Cholo Abdi MD Primary Care Provider Hilaria Tafoya Unavailable [phone] Allergies Allergen (clinical drug ingredient) Drug/Non Drug Allergy documented on EMR Reaction Allergy Type Onset Date Status meperidine Demerol vomiting Drug Allergy Active REASON FOR VISIT Fungal Nails Medications Medication SIG (Take, Route, Frequency, Duration) Notes Start Date End Date Status Eliquis Not-Taking Ciclopirox Olamine 0.77 % 1 application to affected area Externally Twice a day for 30 days Active LamISIL 250 MG 1 tablet Orally Once a day for 30 days Not-Taking Ibuprofen PRN Active Social History Tobacco Use: Social History Observation [...] No Points 0 Interpretation Negative Vital Signs Height 5ft3in in 05/17/2024 Weight 150 lbs 05/17/2024 BMI 26.57 kg/m2 05/17/2024 Blood pressure systolic 120 mm Hg 05/18/19 25 Blood pressure diastolic 60 mm Hg 025 Encounters Encounter Location Date Provider Diagnosis [facility] [address] [place] [address] 05/17/2024 Hilaria Israel 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 ; Pain in right toe(s) M79.674 and Pain in left toe(s) M79.675 Assessments Encounter Date Diagnosis (ICD Code) Assessment Notes Treatment Notes Treatment Clinical Notes Section Notes 05/17/2024 Fungal infection of nail (ICD-10 - B35.1) 05/17/2024 Pain in right toe(s) (ICD-10 - M79.674) 05/17/2024 Pain in left toe(s) (ICD-10 - M79.675) Plan Of Treatment Next Appt Details Follow Up: 2 Months, Reason: Provider Name:Hilaria zimmerman, 08/03/2024 09:30:00 AM, [address] [place] [address], [place], [address], Procedure Notes * Category Sub-Category Detail Notes Debride Nail 6-10 Nail debridement Due to the cl inical pathology outlined in the exam findings, performance of this nail treatment is medically necessary as its management by an unskilled/untrained nonprofessional would put this patients foot and overall health at risk. Therefore, debridement to affected nail(s), as described in exam ( TA, T1, T2, T3, T4, T5, T6, T7, T8, T9), was performed exclusively by the physician of record to reduce/remove overall nail length, girth, thickness, subungual debris, and necrotic tissue, by manual and/or electrical means through the use of a nail nipper and/or dremel-type valve grinder, to a more viable healthy nail plate or bed tissue 6-10 nails in total. Silver nitrate was used for any petechial bleeding as necessary. Definitive antifungal treatment options, both pharmaceutical and surgical, have been reviewed and discussed with the patient. The patient solely prefers the use of intermittent/as needed professional debridement services for their nail condition and understands the need for additional periodic treatments to maintain effectiveness in symptomatic relief - 90549 Progress Notes * Rona MATA PDOB: [birth year] (69 yo F)Acc No.[id number]:05/17/2024 Progress Note Patient:?ESPERANZA Rona P Provider:?Hilaria Israel DPM :1955???Age:69 Y???Sex:Female D ate:05/17/2024 Address:[address] [place] [address], [place], [id number] Pcp:Cholo Abdi MD Subjective: * Chief Complaints: * ???Fungal Nails * HPI: ???Painful Nails:?Pt States Last PCP Visit:?Date:?09/17/2023 * ROS:?General/Constitutional:?Nausea?denies.?Vomiting?denies.?Hunger Thirst?denies.?Loss appetite?denies.?Chills?denies.?Fatigue?denies.?Fever?denies.?Night Sweats?denies.?Unexplained weight loss?denies.?Unexplained weight gain?denies.?HEENTM:?Dentures?denies.?Dizziness?denies.?Glasses/contacts?admits.?Retinopathy?de nies.?Blurred/double vision?denies.?TMJ?denies.?Discharge/drainage?denies.?Implants?denies.?Sore throat?denies.?Dental implants?denies.?Hard of hearing ?denies.?Difficulty chewing/swallowing/speaking?denies.?Nose bleeds?denies.?Sore mouth?denies.?Respiratory:?On Oxygen?denies.?Pneumonia/pleurisy?denies.?Bronchitis?denies.?Emphysema?denies.?C oughing?denies.?Cough blood?denies.?Shortness of breath?denies.?Wheezing?denies.?Cardiovascular:?Pacemaker?denies.?MVP?denies.?WPW?denies.?CHF?denies.?Heart attack?denies.?Septal defect?denies.?Rapid beat?denies.?Chest pain ?denies.?Atrial Fib.?denies.?Murmur/Palpitations?denies.?Gastrointestinal:?Hemorrhoids?denies.?Stomach/Abdominal pain?denies.?Dark blood stool?denies.?Irritable bowel ?denies.?Constipation?denies.?Diarrhea?denies.?Hematology:?Swelling?denies.?Clots?denies.?Varicose Veins?denies.?Bruising?denies.?Bleeding problem?denies.?Genitourinary:?Blood urine?denies.?Frequent/Painfu/urination/bladder control?denies.?Kidney stones?denies.?Infection (UTI)?denies.?Nephropathy?denies.?sex trans dis (STD)?denies.?Prostate?denies.?Musculoskeletal:?Hammertoes?denies.?Bunions?admits.?Back Pain?denies.?Muscle Cramps/ Resting?denies.?Muscle cramps / walking?denies.?Generalized aches and pains?denies.?Weakness?denies.?Integ.:?Fernandez?denies.?Scars?denies.?Corns/calluses?denies.?Ingrown nails?denies.?Painful nails?denies.?Open Sores?denies.?Rashes?denies.?Neurologic:?Difficulty sleeping?denies.?Brain disorder?denies.?Numbness?denies.?Balance trouble?denies.?Confusion?denies.?Fainting/blackouts?denies.?Tingling?denies.?Tr emors?denies.? * Medical History:? * Surgical History:?Appendix 1 968Knee replacement Surgery - right knee 06/12/20 * Hospitalization/Major Diagno stic Procedure:?Denies Past Hospitalization * Family History:?Mother: dece ased, diagnosed with Other malignant neoplasm of unspecified site.?Father: .? * Social History:?Tobacco Use:?Tobacco use other than smoking?Are you an other tobacco user??No ?Tobacco Control (Standard)?Tobacco use:?Nonsmoker ?Additional Findings: Tobacco non-user?Current nonsmoker ???Drugs/Alcohol:?Drugs?Have you used drugs other than those for medical reasons in the past 12 months??No ???Miscellaneous:?Caffeine: yes, tea 3/day, soda 1 everyother day. ?Children: yes, 2. ?Exercise: yes, walks dog, walking. ?Marital status: . 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 ???Drug/Alcohol:?AUDIT-C (Standard)?Did you have a drink containing alcohol in the past year??No ?Points?0 ?Interpretation?Negative * Medications:?TakingIbuprofen , Notes to Pharmacist: PRNCiclopirox Olamine 0.77 % Cream 1 application to affected area Externally Twice a day Taking Ibuprofen , Notes to Pharmacist: PRNTaking Ciclopirox Olamine 0.77 % Cream 1 application to affected area Externally Twice a day Not-Taking/PRNLamISIL 250 MG Tablet 1 tablet Orally Once a day Eliquis Medication List reviewed and reconciled with the patientNot- Taking/PRN LamISIL 250 MG Tablet 1 tablet Orally Once a day Not-Taking/PRN Eliquis Medication List reviewed and reconciled with the patient * Allergies:?Demerol: vomiting yes[Allergies Verified] Objective: * Vitals:?Ht:5ft3in, Wt:150, B LA:26.57, Shoe size:6, BP:120/60mm Hg, Ht-cm: 160.02 cm, Wt-k.04 kg. * Examination: ???Nails: ?NAILS are:?Elongated, overgrown, dystrophic, lytic, greater than 3mm thick, discolored and friable with crumbly malodorous subungual debris, with pain on palpation , TA, T1, T2, T3, T4, T5, T6, T7, T8, T9.? Assessment: * Assessment: 1.?Fungal infection of nail - B35.1 (Primary)???2.?Pain in right toe(s) - M79.674???3.?Pain in left toe(s) - M79.675??? Plan: * Treatment: * Procedures:?Debride Nail 6-10:?Nail debridement?Due to the clinical pathology outlined in the exam findings, performance of this nail treatment is medically necessary as its management by an unskilled/untrained nonprofessional would put this patients foot and overall health at risk. Therefore, debridement to affected nail(s), as described in exam (?TA, T1, T2, T3, T4, T5, T6, T7, T8, T9), was performed exclusively by the physician of record to reduce/remove overall nail length, girth, thickness, subungual debris, and necrotic tissue, by manual and/or electrical means through the use of a nail nipper and/or dremel-type valve grinder, to a more viable healthy nail plate or bed tissue 6- 10 nails in total. Silver nitrate was used for any petechial bleeding as necessary. Definitive antifungal treatment options, both pharmaceutical and surgical, have been reviewed and discussed with the patient. The patient solely prefers the use of intermittent/as needed professional debridement services for their nail condition and understands the need for additional periodic treatments to maintain effectiveness in symptomatic relief - 37054.? * Procedure Codes:?00721 DEBRI DE NAIL, 6 OR MORE, Modifiers: XS * Follow Up:?2 Months * Images: * Sign off status: Completed true * Provider:?Hilaria Israel, DUNCAN Date:?01/2025 Generated for Franklin vazquez/Thiago/Haider on:?07/07/2024 03:04 PM EDT History and Physical Notes * HPI (History of Present Illness) Category Sub-Category Detail Notes Category Not es Painful Nails Pt States Last PCP Visit: Date:: 09/17/2023 Examination Category Sub-Category Detail Notes Category Not es Nails NAILS are: Elongated, overg rown, dystrophic, lytic, greater than 3mm thick, discolored and friable with crumbly malodorous subungual debris, with pain on palpation , TA, T1, T2, T3, T4, T5, T6, T7, T8, T9
--- OUTSIDE RECORDS SUMMARY | 2024-07-07 17:15 | XMS_ITS ---
Author Organization [facility] Address [address] [place] [address] Care Team Providers Care Library Services Dean Name Role Phone Cholo Abdi MD Primary Care Provider Hilaria Tafoya Unavailable [phone] Allergies Allergen (clinical drug ingredient) Drug/Non Drug Allergy documented on EMR Reaction Allergy Type Onset Date Status meperidine Demerol vomiting Drug Allergy Active REASON FOR VISIT pcp-09/2023, Fungal Nails Medications Medication SIG (Take, Route, Frequency, Duration) Notes Start Date End Date Status LamISIL 250 MG 1 tablet Orally Once a day for 30 days Not-Taking Eliquis Not-Taking Ibuprofen PRN Active Ciclopirox Olamine 0.77 % 1 application to affected area Externally Twice a day for 30 days Active Social History Tobacco Use: Social History Observation Description Date Details (start date - stop date) Never Smoker NA - NA Tobacco Use/Smoking Question Answer Notes Are you a: nonsmoker Additional Findings: Tobacco Non-User Current no n-smoker Alcohol Screen Question Answer Notes Did you have a drink containing alcohol in the p ast year? No Points 0 Interpretation Negative Tobacco use other than smoking: Question Answer Notes Are you an other tobacco user? No Vital Signs Height 5ft 3in in 12/02/2023 Weight 150 lbs 12/02/2023 BMI 26.57 kg/m2 12/02/2023 Encounters Encounter Location Date Provider Diagnosis [facility] [address] [place] [address] 12/02/2023 Hilaria Israel 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 ; Pain in right toe(s) M79.674 and Pain in left toe(s) M79.675 Assessments Encounter Date Diagnosis (ICD Code) Assessment Notes Treatment Notes Treatment Clinical Notes Section Notes 12/02/2023 Fungal infection of nail (ICD-10 - B35.1) 12/02/2023 Pain in right toe(s) (ICD-10 - M79.674) 12/02/2023 Pain in left toe(s) (ICD-10 - M79.675) Plan Of Treatment Next Appt Details Follow Up: 2 Months, Reason: Provider Name:Hilaria zimmerman, 08/03/2024 09:30:00 AM, [address] [place] [address], [phone], Procedure Notes * Category Sub-Category Detail Notes Debride Nail 6-10 Nail debridement Nail debridem ent performed extensively to reduce/remove overall nail length and girth, subungual debris, and necrotic tissue, by manual and electrical means with use of a nail nipper and/or dremel, to more viable healthy nail plate or bed tissue 6-10. Silver nitrate used for any petechial bleeding as necessary. Patient chooses, no pharmaceutical tx (73745) Progress Notes * Rona MATA PDOB: (68 yo F)Acc No.[id number]:12/02/2023 Progress Note Patient:?Kenneth Rona P Provider:?Hilaria Israel DPM :1955???Age:68 Y???Sex:Female D ate:12/02/2023 Address:[address] [place], [place] [id number] Pcp:Cholo Abdi MD Subjective: * Chief Complaints: * ???Pcp-09/2023Fungal Nails * HPI: ???Painful Nails:?Pt States Last [...] unspecified site.?Father: .? * Social History:?Tobacco Use:?Tobacco Use/Smoking?Are you a:?nonsmoker ?Additional Findings: Tobacco Non-User?Current non-smoker ?Tobacco use other than smoking?Are you an other tobacco user??No ???Drugs/Alcohol:?Drugs?Have you used drugs other than those for medical reasons in the past 12 months??No ?Alcohol Screen?Did you have a drink containing alcohol in the past year??No ?Points?0 ?Interpretation?Negative ???Miscellaneous:?Caffeine: yes, tea 3/day, soda 1 everyother day. ?Children: yes, 2. ?Exercise: yes, walks dog, walking. ?Marital status: . 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 * Medications:?TakingIbuprofen , Notes: PRNCiclopirox Olamine 0.77 % Cream 1 application to affected area Externally Twice a dayTaking Ibuprofen , Notes: PRNTaking Ciclopirox Olamine 0.77 % Cream 1 application to affected area Externally Twice a dayNot-Taking/PRNLamISIL 250 MG Tablet 1 tablet Orally Once a dayEliquis Medication List reviewed and reconciled with the patientNot-Taking/PRN LamISIL 250 MG Tablet 1 tablet Orally Once a dayNot-Taking/PRN Eliquis Medication List reviewed and reconciled with the patient * Allergies:?Demerol: vomiting yes[Allergies Verified] Objective: * Vitals:?Ht: 5ft 3in, Wt:150, BMI:26.57, Shoe size: 6, Ht-cm: 160.02 cm, Wt-k.04 kg. * Examination: ???Nails: ?NAILS are:?Elongated, overgrown, dystrophic, lytic, greater than 3mm thick, discolored and friable with crumbly malodorous subungual debris, with pain on palpation , 1-5 B/L.? Assessment: * Assessment: 1.?Fungal infection of nail - B35.1 (Primary)?2.?Pain in right toe(s) - M79.674?3.?Pain in left toe(s) - M79.675? Plan: * Treatment: * Procedures:?Debride Nail 6-10:?Nail debridement?Nail debridement performed extensively to reduce/remove overall nail length and girth, subungual debris, and necrotic tissue, by manual and electrical means with use of a nail nipper and/or dremel, to more viable healthy nail plate or bed tissue 6-10. Silver nitrate used for any petechial bleeding as necessary. Patient chooses, no pharmaceutical tx (30245).? * Procedure Codes:?31331 DEBRI DE NAIL, 6 OR MORE, Modifiers: XS * Follow Up:?2 Months * Images: * Sign off status: Completed true * Provider:?Hilaria Israel, DUNCAN Date:? Generated for Franklin vazquez/Thiago/eTbaosmitting on:?07/07/2024 03:05 PM EDT History and Physical Notes * HPI (History of Present Illness) Category Sub-Category Detail Notes Category Not es Painful Nails Pt States Last PCP Visit: Date:: 09/17/2023 Examination Category Sub-Category Detail Notes Category Not es Nails NAILS are: Elongated, overg rown, dystrophic, lytic, greater than 3mm thick, discolored and friable with crumbly malodorous subungual debris, with pain on palpation , 1-5 B/L
--- OUTSIDE RECORDS SUMMARY | 2024-07-07 17:15 | XMS_ITS ---
Author Organization [facility] Address [address] [place] [address] Care Team Providers Care Special Education Secretary Name Role Phone Cholo Abdi MD Primary Care Provider Hilaria Tafoya Unavailable [phone] Allergies Allergen (clinical drug ingredient) Drug/Non Drug [...] Additional Findings: Tobacco Non-User Current no n-smoker Tobacco use other than smoking: Question Answer Notes Are you an other tobacco user? No Vital Signs Height 5ft3in in 02/23/2024 Weight 150 lbs 02/23/2024 BMI 26.57 kg/m2 02/23/2024 Blood pressure systolic 119 mm Hg 02/23/20 24 Blood pressure diastolic 75 mm Hg 024 Encounters Encounter Location Date Provider Diagnosis [facility] [address] [place] [address] 02/23/2024 Hilaria Israel 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 ; Pain in right toe(s) M79.674 and Pain in left toe(s) M79.675 Assessments Encounter Date Diagnosis (ICD Code) Assessment Notes Treatment Notes Treatment Clinical Notes Section Notes 02/23/2024 Fungal infection of nail (ICD-10 - B35.1) 02/23/2024 Pain in right toe(s) (ICD-10 - M79.674) 02/23/2024 Pain in left toe(s) (ICD-10 - M79.675) Plan Of Treatment Next Appt Details Follow Up: 2 Months, Reason: Provider Name:Hilaria zimmerman, 08/03/2024 09:30:00 AM, [address] [place] [address], [phone], Procedure Notes * Category Sub-Category Detail Notes [...] to maintain effectiveness in symptomatic relief - 44680 Progress Notes * ESPERANZA Rona PDOB: (69 yo F)Acc No.[id number]:02/23/2024 Progress Note Patient:?Rona MATA P Provider:?Hilaria Israel DPM :1955???Age:69 Y???Sex:Female D ate:02/23/2024 Address:[address] [place] [id number] Pcp:Cholo Abdi MD Subjective: * Chief Complaints: [...] than smoking?Are you an other tobacco user??No * Medications:?TakingIbuprofen , Notes to Pharmacist: PRNCiclopirox [...] Allergies:?Demerol: vomiting yes[Allergies Verified] Objective: * Vitals:?Ht: 5ft3in, Wt:150, BMI:26.57, Shoe size: 6, BP:119/75mm Hg, Ht-cm: 160.02 cm, Wt-k.04 kg. * [...] to maintain effectiveness in symptomatic relief - 58445.? * Procedure Codes:?08162 DEBRI DE NAIL, 6 OR MORE, Modifiers: XS * Follow Up:?2 Months * Images: * Sign off status: Completed true * Provider:?Hilaria Israel DPM Date:? Generated for Franklin vazquez/Thiago/Marysmitting on:?07/07/2024 03:04 PM EDT History and Physical [...]
== END 2024-07-07 15:34 | disposition home or self-care (01) ==
LOC: HO.XRAY 15:33
PROVIDERS: PCP Internal Medicine; Visit Provider Internal Medicine
DX: R58 Hemorrhage, not elsewhere classified (principal)
CPT/HCPCS: 73110; 73130

== ENCOUNTER → 2024-07-07 16:05 | Outpatient (BNV) | payer MEDICARE, SELFPAY | PROVIDERS: PCP Internal Medicine; Visit Provider Radiology Diagnostic Radiology | DX: S52.502A Unspecified fracture of the lower end of left radius, initial encounter for closed fracture (principal) | CPT/HCPCS: 73110; 73130 ==

== ENCOUNTER 2024-07-08 09:39 | Outpatient (AMB) | payer MEDICARE, SELFPAY ==
--- NOTE | 2024-07-08 09:48 | A.OFFVIS_ITS ---
Intake Visit Reasons: FC-Distal radius fx casting Intake Note: Rona is a 69 year old right hand dominant female who presents todat for an evaluation of left distal radius fracture, DOI 07/05/24. Patient reports that her foot caught the leg of her coffee table resulting in a fall hitting her jaw and landed on her left hand. She was seen by her PCP who ordered x-rays and referred to orthopedics. Patient reports that she is unable to move her fingers and or cotton picker items. She has ongoing swelling in her hand. States very mild pain at the dorsal aspect of hand and at times shoots up her arm. She has a tingling sensation that started today. Allergies meperidine [From Demerol] Allergy (Unknown, Verified 10/22/22 09:24) Nausea and Vomiting HPI HPI FC-Distal radius fx casting: Details: Rona is a 69 year old right hand dominant female who presents todat for an evaluation of left distal radius fracture, DOI 07/05/24. Patient reports that her foot caught the leg of her coffee table resulting in a fall hitting her jaw and landed on her left hand. She was seen by her PCP who ordered x-rays and referred to orthopedics. Patient reports that she is unable to move her fingers and or cotton picker items. She has ongoing swelling in her hand. States very mild pain at the dorsal aspect of hand and at times shoots up her arm. She has a tingling sensation that started today. No other acute complaints or concerns at this time. [facility] Medical History Osteoporosis Surgical History History of appendectomy History of total right knee replacement Family History Mother Thyroid cancer Father Stroke Brother No problems noted. Sister No problems noted. Social History (Updated 07/08/24 @ 09:54 by RASHMI Vincent) Household Members: Spouse and Children Household Members Other:: , adult daughter Alcohol intake: current Alcohol intake frequency: holidays/special occasions only Alcohol type: wine Patient Tobacco Use Status: Former Tobacco user Current occupational status: retired Current occupation: right hand dominant Review of Systems Const All systems reviewed & are unremarkable except as noted in HPI and below Physical Exam Extrem Other: Patient is alert, oriented, and in no acute distress. Neuro: Normal sensation of the tips of all digits of the left hand at this time Vascular: Cap refill brisk Pain: Patient reports minimal tenderness to palpation of the left distal radius of the level of the fracture No anatomical snuffbox tenderness Minimal pain with pronation and supination of the left wrist ROM: Patient was able to make a closed fist and extend all digits of the left hand fully and without difficulty Skin: No lacerations or abrasions. General: Moderate edema noted of the left hand and wrist Very mild ecchymosis No erythema, or evidence of infection. Psych: Appears grossly normal Affect normal Attitude cooperative Office Procedures AMB Fracture Care Details: Left distal radius fracture Fracture Billing Code: Fracture Billing Code Casting/Splints 79428-Rzcltbu Splint Application Procedure code (CPT) selection complete Results Reviewed Results Reviewed: X-rays obtained in the office today and independently reviewed by me, Nikita Talavera PA-C, demonstrate minimally displaced fracture of the left distal radius with approximately 9 degrees of apex volar angulation. Assessment & Plan Assessment & Plan (1) Fracture of left distal radius: Code(s): S52.502A - Unspecified fracture of the lower end of left radius, initial encounter for closed fracture Category: Medical Plan 1. Minimally displaced left distal radius fracture Date of injury 07/05/2024 Patient is educated about this injury Patient is educated about the typical recovery course At this time, I feel it was appropriate for the patient to proceed with conservative management of this fracture, and the patient states that she would prefer this as well Patient was placed into a volar short-arm splint due to swelling Patient is educated on proper splint care and precautions Follow-up in 2 weeks with repeat x-rays for reassessment, anticipate cast placement at that time, sooner with any acute concerns Coding Level of Care Code New Pt Level 3 (36027) Diagnoses Fracture of left distal radius S52.502A CPT Codes Fracture Care - Fracture Billing Code: Fracture Billing Code ([id number]) Splint - CPT: 65524-Fxyqmld Splint Application ([id number])
--- OUTSIDE RECORDS SUMMARY | 2024-07-08 10:28 | XMS_ITS ---
Author Organization [facility] Address [address] [place] [address] Care Team Providers Care Staff Air Defense Officer Name Role Phone Cholo Abdi MD Primary Care Provider Hilaria Tafoya Unavailable [phone] Allergies Allergen (clinical drug ingredient) Drug/Non Drug [...] 12/02/2023 Encounters Encounter Location Date Provider Diagnosis [facility] [address] [place] [address] 12/02/2023 Hilaria Israel Fungal infection of nail [...] Reason: Provider Name:Hilaria zimmerman, 08/03/2024 09:30:00 AM, [address] [place] [address], [phone], Procedure Notes * Category Sub-Category Detail Notes [...] as necessary. Patient chooses, no pharmaceutical tx (25952) Progress Notes * Rona MATA PDOB: (68 yo F)Acc No.[id number]:12/02/2023 Progress Note Patient:?Kenneth Rona P Provider:?Hilaria Israel DPM :1955???Age:68 Y???Sex:Female D ate:12/02/2023 Address:[address] [place], [place] [phone] Pcp:Cholo Abdi MD Subjective: * Chief Complaints: [...] as necessary. Patient chooses, no pharmaceutical tx (36760).? * Procedure Codes:?28384 DEBRI DE NAIL, 6 OR MORE, Modifiers: XS * Follow Up:?2 Months * Images: * Sign off status: Completed true * Provider:?Hilaria Israel, DUNCAN Date:? Generated for Franklin vazquez/Thiago/eTransmitting on:?07/08/2024 10:27 AM EDT History and Physical Notes * HPI [...]
--- OUTSIDE RECORDS SUMMARY | 2024-07-08 10:28 | XMS_ITS ---
Author Organization [facility] Christine serenity Binger Address [address] [place] [address] Care Team Providers Care Quality Control Clerk Name Role Phone Cholo Abdi MD Primary Care Provider Hilaria Tafoya Unavailable [phone] Allergies Allergen (clinical drug ingredient) Drug/Non Drug [...] 025 Encounters Encounter Location Date Provider Diagnosis [facility] [address] [place] [address] 05/17/2024 Hilaria Israel Fungal infection of nail [...] Reason: Provider Name:Hilaria zimmerman, 08/03/2024 09:30:00 AM, [address] [place] [address], [place], [phone], Procedure Notes * Category Sub-Category Detail Notes [...] use of a nail nipper and/or dremel-type pulp grinder feeder, to a more viable healthy nail plate [...] to maintain effectiveness in symptomatic relief - 95102 Progress Notes * Rona MATA PDOB: 4 (69 yo F)Acc No.[id number]:05/17/2024 Progress Note Patient:?ESPERANZA Rona P Provider:?Hilaria Israel DPM :1955???Age:69 Y???Sex:Female D ate:05/17/2024 Address:[address] [place] [address], [place], [id number] Pcp:Cholo Abdi MD Subjective: * Chief Complaints: [...] yes[Allergies Verified] Objective: * Vitals:?Ht:5ft3in, Wt:150, B AL:26.57, Shoe size:6, BP:120/60mm Hg, Ht-cm: 160.02 cm, [...] use of a nail nipper and/or dremel-type pulp grinder feeder, to a more viable healthy nail plate [...] to maintain effectiveness in symptomatic relief - 00741.? * Procedure Codes:?78645 DEBRI DE NAIL, 6 OR MORE, Modifiers: XS * Follow Up:?2 Months * Images: * Sign off status: Completed true * Provider:?Hilaria Israel, DUNCAN Date:?01/2025 Generated for Franklin vazquez/Thiago/Haider on:?07/08/2024 10:27 AM EDT History and Physical [...]
--- OUTSIDE RECORDS SUMMARY | 2024-07-08 10:28 | XMS_ITS ---
Author Organization [facility] Address [address] [place] [address] Care Team Providers Care Drilling Manager Name Role Phone Cholo Abdi MD Primary Care Provider Hilaria Tafoya Unavailable [phone] Allergies Allergen (clinical drug ingredient) Drug/Non Drug [...] 024 Encounters Encounter Location Date Provider Diagnosis [facility] [address] [place] [address] 02/23/2024 Hilaria Israel Fungal infection of nail [...] Reason: Provider Name:Hilaria zimmerman, 08/03/2024 09:30:00 AM, [address] [place] [address], [phone], Procedure Notes * Category Sub-Category Detail [...] use of a nail nipper and/or dremel-type precision lens grinder apprentice, to a more viable healthy nail plate [...] to maintain effectiveness in symptomatic relief - 43671 Progress Notes * ESPERANZA Rona PDOB: (69 yo F)Acc No.[id number]:02/23/2024 Progress Note Patient:?Rona MATA P Provider:?Hilaria Israel DPM :1955???Age:69 Y???Sex:Female D ate:02/23/2024 Address:[address] [place] [phone] Pcp:Cholo Abdi MD Subjective: * Chief Complaints: [...] use of a nail nipper and/or dremel-type precision lens grinder apprentice, to a more viable healthy nail plate [...] to maintain effectiveness in symptomatic relief - 22693.? * Procedure Codes:?32263 DEBRI DE NAIL, 6 OR MORE, Modifiers: XS * Follow Up:?2 Months * Images: * Sign off status: Completed true * Provider:?Hilaria Israel DPM Date:? Generated for Franklin vazquez/Thiago/eTransmitting on:?07/08/2024 10:27 [...]
--- OUTSIDE RECORDS SUMMARY | 2024-07-08 10:28 | XMS_ITS | Patient Health Record ---
Author [facility] Address [address] [place] [address] Care Team Providers Care International Affairs Vice President Name Role Phone Cholo Abdi MD Primary Care Provider Hilaria Tafoya Unavailable [phone] Allergies Allergen (clinical drug ingredient) Drug/Non Drug [...] 05/17/2024 Encounters Encounter Location Date Provider Diagnosis [address] [address] 09/18/2023 Hilaria Perica 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 ; Pain in right toe(s) M79.674 and Pain in left toe(s) M79.[address] [address] 12/02/2023 Hilaria Perica 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 ; Pain in right toe(s) M79.674 and Pain in left toe(s) M79.[address] [address] 02/23/2024 Hilaria Perica 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 ; Pain in right toe(s) M79.674 and Pain in left toe(s) M79.[address] [address] 05/17/2024 Hilaria Perica Fungal infection of nail [...] Details Provider Name:Hilaria zimmerman, 08/03/2024 09:30:00 AM, [address] [place] [address], [phone], Insurance Providers Payer Name Payer Address Payer Phone Subscriber Number Group Number Insured Name Patient Relationship to Insured Coverage Start Date Coverage End Date Medicare National Govt S[employer] [address] [place] [address] [id number] Rona Cooper Self - patient is the insured [employer] [address] [place] [address] [phone] [id number] Rona Cooper Self - patient is the insured Medical (General) History Medical History History ICD Code Back,Hip,and Knee pain Surgical History Surgery Date(Month/Year) Appendix 1968 Knee replacement Surgery - right knee
== END 2024-07-08 11:36 | disposition home or self-care (01) ==
LOC: HO.HOS 09:40
PROVIDERS: PCP Internal Medicine
DX: S52.502A Unspecified fracture of the lower end of left radius, initial encounter for closed fracture (principal)
CPT/HCPCS: 25600; 99203

== ENCOUNTER 2024-07-08 09:39 | Outpatient (REF) | payer MEDICARE, SELFPAY ==
--- NOTE | ~2024-07-08 | XR_ITS ---
EXAMINATION: XR WRIST 3 OR MORE VIEWS LEFT HISTORY: M25.532 - Pain in left wrist COMPARISON: Comparison is made with the prior examination dated 07/07/2024. FINDINGS: Three views of the left wrist are submitted. The bones are osteopenic. Again seen is a nondisplaced transverse fracture of the distal radial metaphysis. Alignment is anatomic. There is severe osteoarthritis of the 1st carpometacarpal joint, with joint space narrowing and osteophyte formation. The soft tissues are unremarkable. XR/XR wrist LT min 3V IMPRESSION: Osteopenia. Nondisplaced transverse fracture of the distal radial metaphysis without change. Electronically signed by: Walter Jones MD 07/08/2024 12:23 PM EDT
== END 2024-07-08 09:40 | disposition home or self-care (01) ==
LOC: HO.HOSX 09:39
PROVIDERS: PCP Internal Medicine
DX: M25.532 Pain in left wrist (principal); S52.502A Unspecified fracture of the lower end of left radius, initial encounter for closed fracture
CPT/HCPCS: 25600; 73110; 99202

== ENCOUNTER → 2024-07-08 10:06 | Outpatient (BNV) | payer MEDICARE, SELFPAY | PROVIDERS: PCP Internal Medicine; Visit Provider Radiology Diagnostic Radiology | DX: M85.841 Other specified disorders of bone density and structure, right hand (principal); S52.325A Nondisplaced transverse fracture of shaft of left radius, initial encounter for closed fracture | CPT/HCPCS: 73110 ==

== ENCOUNTER 2024-07-14 10:49 | Outpatient (AMB) | payer MEDICARE, SELFPAY ==
--- NOTE | 2024-07-14 11:07 | A.OFFVIS_ITS ---
Intake Visit Reasons: OV - L distal radius fx DOI 07/05/24 cast change Intake Note: Rona is a 69 year old right hand dominant female who presents today for a splint change s/p left distal radius fracture, DOI 07/05/24. Patient reports splint is loose and falling apart. Allergies meperidine [From Demerol] Allergy (Unknown, Verified 07/14/24 11:08) Nausea and Vomiting Medication List - Last Reconciled 07/14/24 by Cecelia Velasquez PA-C atorvastatin 40 mg PO DAILY HPI HPI OV - L distal radius fx DOI 07/05/24 cast change: Details: Patient presents today for a follow-up left distal radius fracture date of injury 07/05/2024. She was seen by Nikita Talavera on 07/08/2024 and was placed in a short-arm volar wrist splint. She is here today because the splint is coming apart. [facility] Medical History Osteoporosis Surgical History History of appendectomy History of total right knee replacement Family History Mother Thyroid cancer Father Stroke Brother No problems noted. Sister No problems noted. Social History (Updated 07/08/24 @ 09:54 by RASHMI Vincent) Household Members: Spouse and Children Household Members Other:: , adult daughter Alcohol intake: current Alcohol intake frequency: holidays/special occasions only Alcohol type: wine Patient Tobacco Use Status: Former Tobacco user Current occupational status: retired Current occupation: right hand dominant Review of Systems Const All systems reviewed & are unremarkable except as noted in HPI and below Physical Exam Extrem Other: Left wrist is normal to inspection. She does have mild swelling with some ecchymosis present. Mild tenderness over fracture site neurovascularly intact. Office Procedures Casting/Splints 57241-Cujwiwj Splint Application Procedure code (CPT) selection complete Assessment & Plan Assessment & Plan (1) Fracture of left distal radius: Code(s): S52.502A - Unspecified fracture of the lower end of left radius, initial encounter for closed fracture Category: Medical Plan: Patient was placed back in a short-arm volar wrist splint today as her sancho vazquez continues to subside. I encouraged her to work on making a fist to help with the swelling in the fingers. She will return as planned next week on 07/22 with Nikita Talavera with a potential plan to transition to a short-arm cast. Coding Level of Care Code Global (15516) Diagnoses Fracture of left distal radius S52.502A CPT Codes Splint - CPT: 11251-Wljkilb Splint Application ([id number])
--- OUTSIDE RECORDS SUMMARY | 2024-07-14 12:18 | XMS_ITS ---
Author Organization Cholo Abdi MD Address [address] [place] [phone] Care Team Providers Care Flight Agent Name Role Phone Cholo Abdi Primary Care Provider [phone] Allergies No Known Allergies REASON FOR VISIT check chin after her fall Medications Medication SIG (Take, Route, Frequency, Duration) Notes Start Date End Date Status Vitamin D 2000 UNIT as directed Orally O nce a day 02/16/2014 Active Ibuprofen 400 MG 1 tablet with food o r milk as needed Orally twice a day for 90 days 01/03/2022 Active Nitrostat 0.4 MG as directed Sublingu al every 5 mins times 3 for chest pain for 30 days 06/13/2021 Active Atorvastatin Calcium 40 MG 1 tablet Orally Once a day 09/17/2023 Active Tylenol 325 MG 1 tablet as needed Orally every 4 hrs Not-Taking Vital Signs Blood pressure systolic 132 mm Hg 07/15/19 25 Blood pressure diastolic 70 mm Hg 025 Height 64 in 07/14/2024 Weight 149 lbs 07/14/2024 BMI 25.57 kg/m2 07/14/2024 Encounters Encounter Location Date Provider Diagnosis Cholo Abdi MD [address] [place] [address] [address] [place], [place] [phone] 07/14/2024 Cholo Abdi Hematoma T14.8XXA and Shoulder injury S49.90XA Assessments Encounter Date Diagnosis (ICD Code) Assessment Notes Treatment Notes Treatment Clinical Notes Section Notes 07/14/2024 Hematoma (ICD-10 - T14.8XXA) use warm compresses and no other treatment needed 07/14/2024 Shoulder injury (ICD-10 - S49.90XA) to make sure she keeps range of motion Plan Of Treatment Treatment Notes Assessment Notes Hematoma use warm compresses and no other treatment needed Shoulder injury to make sure she chiqui ps range of motion Next Appt Details Provider Name:Cholo Brown ier, 09/12/2024 07:45:00 AM, [address] [place] [address], [address] [facility], [place], [place], [phone], Provider Name:Cholo Brown ier, 09/19/2024 09:30:00 AM, [address] [place] [address], [place] [address], [place], [place], [phone], Progress Notes * DEVIN MATA PDOB: (69 yo F)Acc No.[id number]:07/14/2024 Progress Notes Patient:?ESPERANZA DEVIN Judd Provider:?Cholo Abdi MD :1955???Age:69 Y???Sex:Female D ate:07/14/2024 Address:[address] [place] [address] [place], [id number] Subjective: * Chief Complaints: * ???1. Check chin after her f all. * HPI: ???Symptom(s):?patient is a 69 yo female, here for issue with chin. has lump on chin and is sore. * ROS:?General/Constitutional:?Denies?Chills.?Denies?Fatigue.?Denies?Fever.?Denies?Headache.?ENT:?Denies?Sore throat.?Respiratory:?Denies?Cough.?Denies?Shortness of breath at rest.?Denies?Shortness of breath with exertion.?Gastrointestinal:?Denies?Diarrhea.?Denies?Nausea.? 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 cologuard negative 09/25/22. * Medications:?Taking Ibuprofe n 400 MG Tablet 1 tablet with food or milk as needed Orally twice a day , Taking Vitamin D 2000 UNIT Tablet as directed Orally Once a day , Taking Atorvastatin Calcium 40 MG Tablet 1 tablet Orally Once a day , Taking Nitrostat 0.4 MG Tablet Sublingual as directed Sublingual every 5 mins times 3 for chest pain , Not-Taking/PRN Tylenol 325 MG Tablet 1 tablet as needed Orally every 4 hrs , Medication List reviewed and reconciled with the patient * Allergies:?N.K.D.A. Objective: * Vitals:?Ht: 64, Wt: 149, BMI :25.57, BP:132/70, Wt-k.59. * Examination: ???General Examination: ?GENERAL APPEARANCE:?abnormal with a hematoma on her chin.?SKIN:?with a 2 inch swelling on chin that is not infected and mildly tender.?EXTREMITIES:?rt arm with normal range of motion but a little pain on lifting arm.? Assessment: * Assessment: 1.?Hematoma - T14.8XXA (Prim elke)???2.?Shoulder injury - S49.90XA??? Plan: * Treatment: 2.?Shoulder injury? Notes: to make sure she keeps range of motion?? * * The named appointment provid er may or may not be the originator of this progress note, and it is not deemed complete until electronically signed by the appointment provider. Sign off status: Pending * Provider:?Cholo Abdi MD Date:?0 07/14/2024 Generated for Franklin vazquez/Thiago/eTransmitting on:?07/14/2024 12:18 PM EDT History and Physical Notes * HPI (History of Present Illness) Category Sub-Category Detail Notes Category Not es Symptom(s) patient is a 69 yo female, here for issue with chin. has lump on chin and is sore Examination Category Sub-Category Detail Notes Category Not es General Examination GENERAL APPEARANCE: abnormal with a hematoma on her chin SKIN: with a 2 inch swelli ng on chin that is not infected and mildly tender EXTREMITIES: rt arm with normal r richie of motion but a little pain on lifting arm
--- OUTSIDE RECORDS SUMMARY | 2024-07-14 12:18 | XMS_ITS | Patient Health Record ---
Author Organization Cholo Abdi MD Address [address] [place], [place] [id number] Care Team Providers Care Kettle Cook Name Role Phone Cholo Abdi Primary Care Provider Allergies No Known Allergies Results Component Value Reference Range Notes Complete Blood Count Auto Di ff Reviewed date:09/08/2023 12:54:23 PM Interpretation: Performing Lab:[facility], [address] [place] [phone] Notes/Report: White Blood Count 6.7 4.8-10.8 X10*3/uL Red Blood Count 4.59 4.20-5.50 X10*6/uL Hemoglobin 14.5 12.0-16.0 g/dl Hematocrit 43.8 37.0-47.0 % Mean Corpuscular Volume 95.4 80.0-98.0 fL Mean Corpuscular Hemoglobin 31.6 27.0-33.0 pg Mean Corpuscular HGB Conc 33.1 31.0-35.0 g/dl Red Cell Distribution Width 13.2 11.0-16.0 % Platelet Count 300 160-400 X10*3/uL Mean Platelet Volume 10.5 9.4-12.3 fL Neutrophils Percent Auto 53.0 45-73 % Imm Gran Pct Auto 0.2 0.0-0.4 % Lymphocytes Percent Auto 33.4 20-40 % Monocytes Percent Auto 9.2 2-11 % Eosinophils Percent Auto 3.3 0-4 % Basophils Percent Auto 0.9 0-2 % NRBC Pct Auto 0.0 0.0-0.2 /100WBC Neutrophils Absolute Auto 3.5 2.0-8.3 x10*3/uL Imm Gran Abs Auto 0.01 0.00-0.03 X10*3/uL Lymphocytes Absolute Auto 2.2 1.2-4.9 X10*3/uL Monocytes Absolute Auto 0.6 0.1-1.2 X10*3/uL Eosinophils Absolute Auto 0.2 0.0-0.4 X10*3/uL Basophils Absolute Auto 0.1 0.0-0.2 X10*3/uL NRBC Abs Auto 0.000 0.0-0.012 X10*3/uL Lipid Panel Reviewed date:09/08/2023 02:56:13 PM Interpretation: Performing Lab:[address] [address] Notes/Report: Triglycerides 106 <150 mg/dL Desirable Triglyceride: less than 150 mg/dL Borderline High Triglyceride 150-199 mg/dL High Triglyceride: 200-499 mg/dL Very High Triglyceride: greater than or equal to 5OO mg/dL Cholesterol 217 <200 mg/dL Desirable Cholesterol: less than 200 mg/dL Borderline High Cholesterol: 200-239 mg/dL High Cholesterol: greater than 239 mg/dL LDL Cholesterol Calculated 144 <100 mg/dL Desirable LDL: less than 100 mg/dL Near Optimal/Above Optimal LDL: 110-129 mg/dL Borderline High LDL: 130-159 mg/dL High LDL: 160-189 mg/dL Very High LDL: greater than or equal to 190 mg/dL HDL Cholesterol 52 >40 mg/dL Desirable HDL: greater than 40 mg/dL Note: This HDL assay may give artificially low results in patients with liver disease. Vitamin D 25-OH Total Reviewed date:09/08/2023 02:56:02 PM Interpretation: Performing Lab:[address] [place] [address] Notes/Report: Vitamin D 25-OH Total 31.6 >30 ng/mL Health Based Reference Values* < 20 ng/mL Deficient 20-30 ng/mL Insufficient > 30 ng/mL Sufficient *Irving CARSON. N Engl J Med. 2007;357:266-280 Care must be taken in interpreting Vitamin D results from different laboratories and methodologies. Published data demonstrated that results from patients undergoing hemodialysis may show a negative bias when tested with various automated 25-OH vitamin D assays when compared to LC-MS/MS. When testing samples from patients whose predominant form of Vitamin D is Vitamin D2, such as patients receiving Vitamin D2 supplementation, results that are subtherapeutic should be confirmed with another method such as LC-MS/MS. Microalbumin, Random Reviewed date:09/08/2023 04:20:33 PM Interpretation: Performing Lab:[address] [address] Notes/Report: Creatinine Urine 112.55 Microalbumin Urine 9.0 Microalbum/Creatinine Ratio Ur 7.9 <30 ug/mg cr Albumin/Creatinine Ratio Reference Ranges: Normal: < 30 ug/mg creatinine Microalbuminuria: 30 - 300 ug/mg creatinine Clinical Albuminuria: > 300 ug/mg creatinine Hemoglobin A1c Reviewed date:09/08/2023 12:38:21 PM Interpretation: Performing Lab:[facility], [address] [place] [phone] Notes/Report: Hemoglobin A1c % 5.5 <6.0 % Hemoglobin A1C Reference Range Adults: 4.8 - 6.0 % Non diabetic: < 6.0 % Goal: < 7.0 % Additional Action Suggested: > 8.0 % Note: Hemoglobin A1c results are invalid for patients with abnormal amounts of HbF. Blood transfusions may impact the HbA1c concentration in the patient sample. Estimated Average Glucose 111 eAG = Estimated average glucose which is %A1C expressed as average glucose, using the formula of the S5T-Rniqece Average Glucose study (ADAG), Diabetes Care, Vol.31,#8, Oct. 2007 UA ClnCatch+Micro w/rflx Cul t Reviewed date:09/08/2023 02:55:52 PM Interpretation: Performing Lab:[facility], [address] [place] [phone] Notes/Report: Urine, Clean Catch Color Urine Yellow Appearance Urine Cloudy PH 6.0 5.0-9.0 Glucose Urine UA Negative Negative mg/dL Urine Blood Negative Negative Specific [place] - Urine 1.020 1.005-1.025 Urine Protein Negative Neg-Trace mg/dL Urine Ketones Negative Negative mg/dL Nitrite Urine Negative Negative Leukocyte Esterase Urine Large (3+) Negative RBC Urine 0-2 0-2 /HPF WBC Urine 21-50 0-5 /HPF Squamous Epithelial Cell Urine 6-10 0-2 /HPF Bacteria Urine 2+ None Seen Hyaline Casts Urine 0-2 0-2 /LPF Liver Panel Reviewed date:12/04/2023 01:43:03 PM Interpretation: Performing Lab:[facility], [address] [place] [phone] Notes/Report: Bilirubin Total 0.4 0.0-1.0 mg/dL Bilirubin Direct 0.2 0.0-0.5 mg/dL Aspartate Amino Transferase 32 5-31 U/L Alanine Aminotransferase 46 0-31 U/L Total Protein 6.9 6.5-8.0 g/dL Albumin Level 3.9 3.5-5.0 g/dL Alkaline Phosphatase 119 39-117 U/L Lipid Panel Reviewed date:12/04/2023 01:42:45 PM Interpretation: Performing Lab:[facility], [address] [place] [phone] Notes/Report: Triglycerides 67 <150 mg/dL Desirable Triglyceride: less than 150 mg/dL Borderline High Triglyceride 150-199 mg/dL High Triglyceride: 200-499 mg/dL Very High Triglyceride: greater than or equal to 5OO mg/dL Cholesterol 153 <200 mg/dL Desirable Cholesterol: less than 200 mg/dL Borderline High Cholesterol: 200-239 mg/dL High Cholesterol: greater than 239 mg/dL LDL Cholesterol Calculated 84 <100 mg/dL Desirable LDL: less than 100 mg/dL Near Optimal/Above Optimal LDL: 110-129 mg/dL Borderline High LDL: 130-159 mg/dL High LDL: 160-189 mg/dL Very High LDL: greater than or equal to 190 mg/dL HDL Cholesterol 56 >40 mg/dL Desirable HDL: greater than 40 mg/dL Note: This HDL assay may give artificially low results in patients with liver disease. Liver Panel Reviewed date:02/08/2024 05:21:38 PM Interpretation: Performing Lab:[facility], [address] [place] [phone] Notes/Report: Bilirubin Total 0.4 0.0-1.0 mg/dL Bilirubin Direct 0.2 0.0-0.5 mg/dL Aspartate Amino Transferase 26 5-31 U/L Alanine Aminotransferase 19 0-31 U/L Total Protein 6.8 6.5-8.0 g/dL Albumin Level 3.9 3.5-5.0 g/dL Alkaline Phosphatase 106 39-117 U/L XR hand LT min 3V Reviewed date:07/08/2024 12:47:48 PM Interpretation:referral entered Performing Lab: Notes/Report: [address] [address] XRay Report Signed Patient: Rona Mata MR#: [id number] : 1955 Acct:[id number] Age/Sex: 69 / F ADM Date: 07/07/24 Loc: HO.TIMMY Attending Dr: Cholo Abdi MD Ordering Physician: Cholo Abdi MD Date of Service: 07/07/24 Procedure(s): XR hand LT min 3V Accession Number(s): [id number] cc: Cholo Abdi MD CLINICAL HISTORY: ecchymosis of forearm 3 views left hand Comparison: None Findings: No dislocations. In the lateral view there is a 3 mm chip fracture of the triquetrum, age undetermined There is moderate degenerative narrowing of the 1st CMC joint No radiopaque foreign body Impression: 1. Possible small chip fracture of the posterior triquetrum. Check point tenderness. 2. There is 4 mm widening of the scapholunate distance, which is sometimes associated with scapholunate ligament tear. This document has been electronically signed by: Enoch Snyder MD on 07/07/2024 16:52:41 Dictated By: Enoch Snyder MD Signed By: <Electronically signed by Enoch Snyder MD in OV> 07/07/241652 DD/ 51 TD/TT: 07/07/241651 [employer] Design Engineer: [place] [address] XRay Report Signed Patient: Sammy Mata MR#: [id number] : 1955 Acct:[id number] Age/Sex: 69 / F ADM Date: 07/07/24 Loc: HOPurviXRAY Attending Dr: Cholo Abdi MD Ordering Physician: Cholo Abdi MD Date of Service: 07/07/24 Procedure(s): XR sierra d LT min 3V Accession Number(s): [id number] cc: Cholo Abdi MD CLINICAL HISTORY: ecchymosis of forearm 3 views left hand Comparison: None Findings: No dislocations. In the lateral view there is a 3 mm chip fracture of the triquetrum, age undetermined There is moderate degenerative narrowing of the 1st CMC joint No radiopaque foreig n body Impression: 1. Possible small ch ip fracture of the posterior triquetrum. Check point tenderness. 2. There is 4 mm widening of the scapholunate distance, which is sometimes associated with scapholunate ligament tear. This document has be en electronically signed by: Enoch Snyder MD on 07/07/2024 16:52:41 Dictated By: Enoch Snyder MD Signed By: <Electronically signed by Enoch Snyder MD in OV> 07/07/241652 DD/ 51 TD/TT: 07/07/241651 [employer] Design Engineer: XR wrist LT min 3V Reviewed date:07/08/2024 12:47:09 PM Interpretation:referral entered Performing Lab: Notes/Report: [address] [address] XRay Report Signed Patient: Rona Mata MR#: [id number] : 1955 Acct:[id number] Age/Sex: 69 / F ADM Date: 07/07/24 Loc: CAMILLA Attending Dr: Cholo Abdi MD Ordering Physician: Cholo Abdi MD Date of Service: 07/07/24 Procedure(s): XR wrist LT min 3V Accession Number(s): [id number] cc: Cholo Abdi MD CLINICAL HISTORY: Ecchymosis of forearm 3 views left wrist Comparison: None Findings: No joint dislocations . There is advanced degenerative narrowing of the 1st CMC joint No radiopaque foreign body Impression: There is a transverse nondisplaced mildly impacted fracture of the distal radius metaphysis. Distal ulna is unremarkable. Radial-ulnar joint distance is normal This document has been electronically signed by: Enoch Snyder MD on 07/07/2024 16:54:02 Dictated By: Enoch Snyder MD Signed By: <Electronically signed by Enoch Snyder MD in OV> 07/07/241654 DD/ 53 TD/TT: 07/07/241653 [employer] Design Engineer: [address] [address] XRay Report Signed Patient: Sammy Mata MR#: [id number] : 1955 Acct:[id number] Age/Sex: 69 / F ADM Date: 07/07/24 Loc: HO.XRAY Attending Dr: Cholo Abdi MD Ordering Physician: Cholo Abdi MD Date of Service: 07/07/24 Procedure(s): XR wri st LT min 3V Accession Number(s): [id number] cc: Cholo Abdi MD CLINICAL HISTORY: Ecchymosis of forearm 3 views left wrist Comparison: None Findings: No joint dislocation s . There is advanced degenerative narrowing of the 1st CMC joint No radiopaque foreig n body Impression: There is a transvers e nondisplaced mildly impacted fracture of the distal radius metaphysis. Distal ulna is unremarkable. Radial-ulnar joint distance is normal This document has be en electronically signed by: Enoch Snyder MD on 07/07/2024 16:54:02 Dictated By: Enoch Snyder MD Signed By: <Electronically signed by Enoch Snyder MD in OV> 07/07/241654 DD/ 53 TD/TT: 07/07/241653 [employer] Design Engineer: Jodi Leon Panel Reviewed date:09/08/2023 04:27:03 PM Interpretation: Performing Lab:[facility], [address] [place] [phone] Notes/Report: Sodium 142 135-145 mmol/L Potassium 4.4 3.3-5.1 mmol/L Chloride 109 96-108 mmol/L Carbon Dioxide 26 22-29 mmol/L Anion Gap 11 12-20 Blood Urea Nitrogen 16 9-16 mg/dL Creatinine 0.76 0.5-1.4 mg/dL Estimated Glomerular Filt Rate > 60 NOTE: For -Surinamese individuals, multiply the result by 1.210. Chronic Kidney Disease: Estimated GFR < 60 mL/min/1.73m2 Severe Kidney Disease: Estimated GFR < 15 mL/min/1.73m2 Glucose Random 85 60-115 mg/dL Calcium 9.6 8.4-10.2 mg/dL Bilirubin Total 0.6 0.0-1.0 mg/dL Aspartate Amino Transferase 19 5-31 U/L Alanine Aminotransferase 15 0-31 U/L Total Protein 6.7 6.5-8.0 g/dL Albumin Level 3.8 3.5-5.0 g/dL Alkaline Phosphatase 99 39-117 U/L Hold Gold Reviewed date:09/08/2023 12:34:06 PM Interpretation: Performing Lab:[facility], [address] [place] [phone] Notes/Report: Hold Gold See Note Specimen held untested for 24 hours; Call to request Chemistry testing. Urine Culture Reviewed date:09/10/2023 03:05:05 PM Interpretation: Performing Lab:[facility], [address] [place] [phone] Notes/Report: Urine Culture No growth. US extremity nonvascular Reviewed date:10/16/2023 09:42:26 AM Interpretation: Performing Lab: Notes/Report: [address] [address] Ultrasound Report Signed Patient: Rona Mata MR#: [id number] : 1955 Acct:[id number] Age/Sex: 68 / F ADM Date: 09/29/23 Loc: HO.US Attending Dr: Cholo Abdi MD Ordering Physician: Cholo Abdi MD Date of Service: 09/29/23 Procedure(s): US extremity nonvascular Accession Number(s): [id number] cc: Cholo Abdi MD EXAMINATION: US EXTREMITY, NONVASCULAR CLINICAL INFORMATION: Soft tissue mass left antecubital fossa. COMPARISON: None available. TECHNIQUE: High-frequency linear ultrasound transducer was used to examine the area of clinical concern in the antecubital fossa. FINDINGS: There is an ovoid mass measuring 2.4 x 0.8 x 4.3 cm and has identical echogenicity of the surrounding fat. There is no internal vascularity. No fluid collections. Visualized vascular structures are unremarkable. US/US extremity nonvascular IMPRESSION: The mass in the antecubital fossa has characteristics consistent with a benign lipoma. Dictated By: Vasquez Quiñonez MD Signed By: <Electronically signed by Vasquez Quiñonez MD in OV> 10/15/232132 DD/ 1350 TD/TT: [employer] Design Engineer: [place] [address] Ultrasound Report Signed Patient: Sammy Mata MR#: [id number] : 1955 Acct:[id number] Age/Sex: 68 / F ADM Date: 09/29/23 Loc: HO.US Attending Dr: Cholo Abdi MD Ordering Physician: Cholo Abdi MD Date of Service: 09/29/23 Procedure(s): US extremity nonvascular Accession Number(s): [id number] cc: Cholo Abdi MD EXAMINATION: US EXTREMITY, NONVASCULAR CLINICAL INFORMATION: Soft tissue mass lef t antecubital fossa. COMPARISON: None available. TECHNIQUE: High-frequency linea r ultrasound transducer was used to examine the area of clinical concern in the antecubital fossa. FINDINGS: There is an ovoid ma ss measuring 2.4 x 0.8 x 4.3 cm and has identical echogenicity of the surrounding fat. There is no internal vascularity. No fluid collections . Visualized vascular structures are unremarkable. US/US extremity nonvascular IMPRESSION: The mass in the antecubital fossa has characteristics consistent with a benign lipoma. Dictated By: Vasquez Quiñonez MD Signed By: <Electronically signed by Vasquez Quiñonez MD in OV> 10/15/232132 DD/ 1350 TD/TT: [employer] Design Engineer: SS XR wrist LT min 3V Reviewed date:07/08/2024 05:01:40 PM Interpretation: Performing Lab: Notes/Report: [place] [facility] [address] [place] [address] XRay Report Signed Patient: Rona Mata MR#: [id number] : 1955 Acct:[id number] Age/Sex: 69 / F ADM Date: 07/08/24 Loc: DAINA Attending Dr: Nikita ROSS Ordering Physician: Nikita Talavera Date of Service: 07/08/24 Procedure(s): XR wrist LT min 3V Accession Number(s): [id number] cc: Nikita Talavera; Cholo Abdi MD EXAMINATION: XR WRIST 3 OR MORE VIEWS LEFT HISTORY: M25.532 - Pain in left wrist COMPARISON: Comparison is made with the prior examination dated 07/07/2024. FINDINGS: Three views of the left wrist are submitted. The bones are osteopenic. Again seen is a nondisplaced transverse fracture of the distal radial metaphysis. Alignment is anatomic. There is severe osteoarthritis of the 1st carpometacarpal joint, with joint space narrowing and osteophyte formation. The soft tissues are unremarkable. XR/XR wrist LT min 3V IMPRESSION: Osteopenia. Nondisplaced transverse fracture of the distal radial metaphysis without change. Electronically signed by: Walter Jones MD 07/08/2024 12:23 PM EDT Dictated By: Walter Jones MD Signed By: <Electronically signed by Walter Jones MD in OV> 07/08/24 1223 DD/ 1006 TD/TT: 07/08/24 1010 [employer] Design Engineer: [facility] [address] [place] [address] XRay Report Signed Patient: Sammy Mata MR#: [id number] : 1955 Acct:[id number] Age/Sex: 69 / F ADM Date: 07/08/24 Loc: DAINA Attending Dr: Nikita ROSS Ordering Physician: Nikita Talavera Date of Service: 07/08/24 Procedure(s): XR wri st LT min 3V Accession Number(s): [id number] cc: Nikita Talavera ; Cholo Abdi MD EXAMINATION: XR WRIS T 3 OR MORE VIEWS LEFT HISTORY: M25.532 - P ain in left wrist COMPARISON: Comparis on is made with the prior examination dated 07/07/2024. FINDINGS: Three views of the l eft wrist are submitted. The bones are osteopenic. Again seen is a nondisplaced transverse fracture of the distal radial metaphysis. Alignmen t is anatomic. There is severe osteoarthritis of the 1st carpometacar pal joint, with joint space narrowing and osteophyte formation . The soft tissues are unremarkable. XR/XR wrist LT min 3V IMPRESSION: Osteopenia. Nondisplaced transverse fracture of the distal radial metaphysis without change. Electronically denise d by: Walter Jones MD 07/08/2024 12:23 PM EDT RP Dictated By: Walter Jones MD Signed By: <Electronically signed by Walter Jones MD in OV> 07/08/24 1223 DD/ 1006 TD/TT: 07/08/24 1010 [employer]ic Design Engineer: Reason For Referral Reason Ecchymosis of forear m Diagnosis 1 Ecchymosis of forear m (R58) Referral Organization Cholo Abdi MD Referring Provider First Name Cholo Referring Provider Last Name Trinidad Referring Provider Speciality Internal M edicine Referred Provider Fatoumata Betancourt Referred Provider Specialty Hand Surgery General Notes Naya Zeng 0 07/07/2024 03:27:23 PM >patient having her left wrist and hand x-rays, Naya Zeng 07/08/2024 07:55:13 AM > referral info faxed with x-ray report, Naya Zeng 07/08/2024 09:25:24 AM > patient is aware of her appt Referral Priority Urgent Referral Appointment Date 07/08/2024 Medications Medication SIG (Take, Route, Frequency, Duration) [...] as needed Orally every 4 hrs Not-Taking Immunizations Vaccine Route Administration Date Status Comme nts Fluarix Quadrivalent IM Intramuscular 03/15/2019 Administe red Prevnar 13 IM Intramuscular 05/09/2019 Administered Shingrix IM Intramuscular 10/25/2019 Administered Influenza High Dose IM Intramuscular 11/11/2019 Administer ed Shingrix IM Intramuscular 01/19/2020 Administered PPSV23 (Pnemovax) IM Intramuscular 05/11/2020 Administered Covid Vaccine Unknown 07/18/2020 Administered [facility]w Math[facility] at [facility] Influenza High Dose IM Intramuscular 11/30/2020 Administer ed SARS-COV-2 Pfizer Unknown 03/21/2021 Administered Influenza High Dose IM Intramuscular 12/24/2021 Administer ed Influenza High Dose IM Intramuscular 12/04/2023 Administer ed Flu Vaccine Unknown 02/06/2014 Refused PT REFUSED Flu Vaccine Unknown 03/05/2015 Refused Fluarix Quadrivalent Unknown 03/25/2016 Refused Social History Tobacco Use: Social History Observation Description Date Details (start date - stop date) Former Smoker NA - NA Tobacco Use/Smoking Question Answer Notes Patient is a former smoker How long has it been since y ou last smoked? > 10 years Additional Findings: Tobacco Non-User Fo rmer smoker, currently using no form of tobacco Alcohol Screen Question Answer Notes Did you have a drink containing alcohol in the p ast year? No Points 0 Interpretation Negative Problems Problem Type SNOMED Code ICD Code Onset Dates Problem Status W/U Status Risk Notes Problem 35378621 Vitamin D deficiency (E55.9) Active confirmed Problem 465012849 Osteopenia (M85.80) Active confirmed Problem Age related osteoporosis (49427506) Age related osteoporosis (M81.0) Active confirmed Problem 53635910 Ruptured lumbar disc (M51.26) Active confirmed Problem CAD (coronary artery disease) (I25.10) Active confirmed Problem 285603817 Elevated LDL cholesterol level (E78.00) Active confirmed Problem 906748037 Prediabetes (R73.03) Active confirmed Problem 717212022 Arthritis of knee (M17.10) Active confirmed Problem 4792622406778 C. difficile diarrhea (A04.72) Active confirmed Problem 47667212 Multiple subsegmental pulmonary emboli without acute cor pulmonale (I26.94) Active confirmed Problem 1836926678472 Status post total right knee replacement (Z96.651) Active confirmed Vital Signs Blood pressure diastolic 70 mm Hg 07/14/2024 Height 64 in 07/14/2024 Blood pressure systolic 132 mm Hg 07/14/2024 Weight 149 lbs 07/14/2024 BMI 25.57 kg/m2 07/14/2024 Encounters Encounter Location Date Provider Diagnosis Cholo Abdi MD [address] [place] [id number] 09/08/2023 Cholo Abdi Vitamin D deficiency E55.9 ; Elevated LDL cholesterol level E78.00 ; Prediabetes R73.03 and CAD (coronary artery disease) I25.10 Cholo Abdi MD [address] [place] [address] [id number] 12/04/2023 Cholo Abdi Elevated LDL cholesterol level E78.00 ; CAD (coronary artery disease) I25.10 and Encounter for immunization Z23 Cholo Abdi MD [address] [place] [id number] 02/08/2024 Cholo Abdi CAD (coronary artery disease) I25.10 [address] [place] [id number] 07/14/2024 Cholo Abdi Hematoma T14.8XXA an d Shoulder injury S49.90XA Cholo Abdi MD [address] [place] [id number] 09/17/2023 Cholo Abdi Elevated LDL cholesterol level E78.00 ; Vitamin D deficiency E55.9 ; CAD (coronary artery disease) I25.10 ; Soft tissue mass M79.89 ; Prediabetes R73.03 and Encounter for screening for depression Z13.31 Cholo Abdi MD [address] [place] [id number] 12/11/2023 Cholo Abdi Cervical disc diseas e M50.90 ; CAD (coronary artery disease) I25.10 and Multiple subsegmental pulmonary emboli without acute cor pulmonale I26.94 Cholo Abdi MD [address] [place], [place] [id number] 06/10/2024 Cholo Abdi Arthritis of knee M17.10 ; Multiple subsegmental pulmonary emboli without acute cor pulmonale I26.94 and CAD (coronary artery disease) I25.10 Cholo Abdi MD [address] [place], [place] [id number] 07/07/2024 Cholo Abdi Ecchymosis of forear m R58 and Facial injury, initial encounter S09.93XA Assessments Encounter Date Diagnosis (ICD Code) Assessment Notes Treatment Notes Treatment Clinical Notes Section Notes 09/08/2023 Vitamin D deficiency (ICD-10 - E55.9) 09/08/2023 Elevated LDL cholesterol level (ICD-10 - E78.00) 12/04/2023 Elevated LDL cholesterol level (ICD-10 - E78.00) 12/04/2023 CAD (coronary artery disease) (ICD-10 - I25.10) 02/08/2024 CAD (coronary artery disease) (ICD-10 - I25.10) 07/14/2024 Hematoma (ICD-10 - T14.8XXA) use warm compresses and no other treatment needed 07/14/2024 Shoulder injury (ICD-10 - S49.90XA) to make sure she keeps range of motion 09/17/2023 Elevated LDL cholesterol level (ICD-10 - E78.00) not high enough to treat except due to cad, will continue to monitor 09/17/2023 Vitamin D deficiency (ICD-10 - E55.9) stable, will continue current regiment 12/11/2023 Cervical disc disease (ICD-10 - M50.90) PER RONA, SHE DOES NOT NEED THE IBUPROFEN REFILLED, SHE STILL HAS 2 REFILLS 12/11/2023 CAD (coronary artery disease) (ICD-10 - I25.10) lft's are a little high but due to cad will try to keep on the statin. rechek in 2 months 06/10/2024 Arthritis of knee (ICD-10 - M17.10) is afraid of surgery because of her past experience 06/10/2024 Multiple subsegmental pulmonary emboli without acute cor pulmonale (ICD-10 - I26.94) had multiple pulmonary emboli when she came back from knee surgery. explained that after reviewing the records that the reason she went unconscius was that she became hypoxic and hypotense with the pe 07/07/2024 Ecchymosis of forearm (ICD-10 - R58) pending diagnostic testing, will refer to [facility] ortho. if they can't see her today/ x-ray orders given to patient 07/07/2024 Facial injury, initial encounter (ICD-10 - S09.93XA) just observe 09/08/2023 Prediabetes (ICD-10 - R73.03) 12/04/2023 Encounter for immunization (ICD-10 - Z23) 09/17/2023 CAD (coronary artery disease) (ICD-10 - I25.10) no symptoms and was minimal but will treat with statins 12/11/2023 Multiple subsegmental pulmonary emboli without acute cor pulmonale (ICD-10 - I26.94) if she had another knee done would suggest that she have a filter temporarily 06/10/2024 CAD (coronary artery disease) (ICD-10 - I25.10) not having any pains but needed a refill on ntg 09/08/2023 CAD (coronary artery disease) (ICD-10 - I25.10) 09/17/2023 Soft tissue mass (ICD-10 - M79.89) order faxed to [facility] dept, pending diagnostic testing 09/17/2023 Prediabetes (ICD-10 - R73.03) stable, no need for medication at ths time 09/17/2023 Encounter for screening for depression (ICD-10 - Z13.31) negative screen Plan Of Treatment Pending Test Test Name Order Date Electrocardiogram (EKG) 03/16/2015 Electrocardiogram (EKG) 04/04/2016 Electrocardiogram (EKG) 04/30/2018 MAMMOGRAM DIGITAL BILATERAL SCREEN 10/05 MAMMOGRAM DIGITAL BILATERAL SCREEN 05/12 US SOFT TISSUE 09/22/2022 US SOFT TISSUE 09/17/2023 US ARM LT VENOUS DOPPLER 09/22/2022 US LEG BILATERAL VENOUS DOPPLER 12/01/19 21 CA dobutamine stress w nancy 06/13/2021 XR DEXA axial skeleton 05/21/2020 CA stress test 05/28/2021 Next Appt Details Provider Name:Cholo Brown ier, 09/12/2024 07:45:00 AM, [address], [address], [place], [phone], Provider Name:Cholo Brown ier, 09/19/2024 09:30:00 AM, [address], [address], [place], [phone], Insurance Providers Payer Name Payer Address Payer Phone Subscriber Number Group Number Insured Name Patient Relationship to Insured Coverage Start Date Coverage End Date MEDICARE NHIC ADONIS [address] [place] [address] [id number] RONA MATA Self - patient is the insured [employer] [address] [place], [place] [phone] [id number] RONA MATA Self - patient is the insured Medical (General) History Medical History History ICD Code discussed, 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 cologuard negative 09/25/22
--- OUTSIDE RECORDS SUMMARY | 2024-07-14 12:18 | XMS_ITS ---
Author Organization [facility] Address [address] [place] [address] Care Team Providers Care Director [employer] Name Role Phone Cholo Abdi MD Primary Care Provider Hilaria Tafoya Unavailable [phone] Allergies Allergen (clinical drug ingredient) Drug/Non Drug [...] 025 Encounters Encounter Location Date Provider Diagnosis [facility] [address] [place] [address] 05/17/2024 Hilaria Israel Fungal infection of nail [...] Reason: Provider Name:Hilaria zimmerman, 08/03/2024 09:30:00 AM, [address] [place] [address], [place], [address], Procedure Notes * Category Sub-Category Detail Notes [...] use of a nail nipper and/or dremel-type outer diameter grinder tool, to a more viable healthy nail plate [...] to maintain effectiveness in symptomatic relief - 53323 Progress Notes * Rona MATA PDOB: [birth year] (69 yo F)Acc No.[id number]:05/17/2024 Progress Note Patient:?ESPERANZA Rona P Provider:?Hilaria Israel DPM :1955???Age:69 Y???Sex:Female D ate:05/17/2024 Address:[address] [place] [address], [place], [id number] Pcp:Cholo Abdi MD Subjective: * Chief Complaints: [...] yes[Allergies Verified] Objective: * Vitals:?Ht:5ft3in, Wt:150, B ND:26.57, Shoe size:6, BP:120/60mm Hg, Ht-cm: 160.02 cm, [...] use of a nail nipper and/or dremel-type outer diameter grinder tool, to a more viable healthy nail plate [...] to maintain effectiveness in symptomatic relief - 10722.? * Procedure Codes:?78591 DEBRI DE NAIL, 6 OR MORE, Modifiers: XS * Follow Up:?2 Months * Images: * Sign off status: Completed true * Provider:?Hilaria Israel, DUNCAN Date:?01/2025 Generated for Franklin vazquez/Thiago/Haider on:?07/14/2024 12:18 PM EDT History and Physical [...]
--- OUTSIDE RECORDS SUMMARY | 2024-07-14 12:18 | XMS_ITS ---
Author Organization Cholo Abdi MD Address [address] [place] [id number] Care Team Providers Care Gardener Florist Name Role Phone Cholo Abdi Primary Care Provider [phone] Allergies No Known Allergies REASON FOR VISIT 6 month Medications Medication SIG (Take, Route, Frequency, Duration) Notes Start Date End Date Status Nitrostat 0.4 MG as directed Sublingu al every 5 mins times 3 for chest pain for 30 days 06/13/2021 Active Tylenol 325 MG 1 tablet as needed Orally every 4 hrs Not-Taking Atorvastatin Calcium 40 MG 1 tablet Orally Once a day 09/17/2023 Active Vitamin D 2000 UNIT as directed Orally O nce a day 02/16/2014 Active Ibuprofen 400 MG 1 tablet with food o r milk as needed Orally twice a day for 90 days 01/03/2022 Active Vital Signs Blood pressure systolic 112 mm Hg 06/11/19 25 Blood pressure diastolic 66 mm Hg 025 Height 64 in 06/10/2024 Weight 151 lbs 06/10/2024 BMI 25.92 kg/m2 06/10/2024 weight is up 4 pounds since 10-4-24 Encounters Encounter Location Date Provider Diagnosis Cholo Abdi MD [address] [place] [address] Drive [address] [place], [place] [phone] 06/10/2024 Cholo Abdi Arthritis of knee M17.10 ; Multiple subsegmental pulmonary emboli without acute cor pulmonale I26.94 and CAD (coronary artery disease) I25.10 Assessments Encounter Date Diagnosis (ICD Code) Assessment Notes Treatment Notes Treatment Clinical Notes Section Notes 06/10/2024 Arthritis of knee (ICD-10 - M17.10) is afraid of surgery because of her past experience 06/10/2024 Multiple subsegmental pulmonary emboli without acute cor pulmonale (ICD-10 - I26.94) had multiple pulmonary emboli when she came back from knee surgery. explained that after reviewing the records that the reason she went unconscius was that she became hypoxic and hypotense with the pe 06/10/2024 CAD (coronary artery disease) (ICD-10 - I25.10) not having any pains but needed a refill on ntg Plan Of Treatment Medication Medication Name Sig Start Date Stop Date Notes Nitrostat 0.4 MG as directed Sublingu al every 5 mins times 3 for chest pain for 30 days 06/13/2021 Ibuprofen 400 MG 1 tablet with food o r milk as needed Orally twice a day for 90 days 01/03/2022 Treatment Notes Assessment Notes Arthritis of knee is afraid of surgery because of her past experience Multiple subsegmental pulmon elke emboli without acute cor pulmonale had multiple pulmonary emboli when she came back from knee surgery. explained that after reviewing the records that the reason she went unconscius was that she became hypoxic and hypotense with the pe CAD (coronary artery disease) not having any pains but needed a refill on ntg Next Appt Details Provider Name:Cholo olsonr, 09/12/2024 07:45:00 AM, [address] [place] [address], Suite [facility], [place], [place], [phone], Provider Name:Cholo lai, 09/19/2024 09:30:00 AM, [address] [place] [address], [address] [place] [address], [id number], Progress Notes * DEVIN MATA PDOB: (69 yo F)Acc No.[id number]:06/10/2024 Progress Notes Patient:?DEVIN MATA Provider:?Cholo Abdi MD :1955???Age:69 Y???Sex:Female D ate:06/10/2024 Address:[address] [place], [place] [address] TO-[id number] Subjective: * Chief Complaints: * ???6 month * HPI: ???Symptom(s):?patient is a 69yo female here for 6 month follow up visit.left knee is bothering. * ROS:?General/Constitutional:?Denies?Chills.?Denies?Fatigue.?Denies?Fever.?Denies?Headache.?ENT:?Denies?Sore throat.?Respiratory:?Denies?Cough.?Denies?Shortness of breath at rest.?Denies?Shortness of breath with exertion.?Cardiovascular:?Denies?Chest pain at rest.?Admits?Chest pain with exertion.?Denies?Dizziness.?Denies?Palpitations.?Denies?Shortness of breath.?Gastrointestinal:?Denies?Diarrhea.?Denies?Nausea.? * Medical History:? * Surgical History:? * Hospitalization/Major Diagno stic Procedure:? * Medications:?TakingVitamin D 2000 UNIT Tablet as directed Orally Once a day Ibuprofen 400 MG Tablet 1 tablet with food or milk as needed Orally twice a day Atorvastatin Calcium 40 MG Tablet 1 tablet Orally Once a day Taking Vitamin D 2000 UNIT Tablet as directed Orally Once a day Taking Ibuprofen 400 MG Tablet 1 tablet with food or milk as needed Orally twice a day Taking Atorvastatin Calcium 40 MG Tablet 1 tablet Orally Once a day Not-Taking/PRNNitrostat 0.4 MG Tablet Sublingual as directed Sublingual every 5 mins times 3 for chest pain Tylenol 325 MG Tablet 1 tablet as needed Orally every 4 hrs Medication List reviewed and reconciled with the patientNot- Taking/PRN Nitrostat 0.4 MG Tablet Sublingual as directed Sublingual every 5 mins times 3 for chest pain Not-Taking/PRN Tylenol 325 MG Tablet 1 tablet as needed Orally every 4 hrs Medication List reviewed and reconciled with the patient * Allergies:?N.K.D.A.yes[Aller gies Verified] Objective: * Vitals:?Ht: 64, Wt: 151, BMI :25.92, BP:112/66, Wt-k.49. weight is up 4 pounds since 12-11-23. * Examination: ???General Examination: ?GENERAL APPEARANCE:?alert, well hydrated, in no distress.?HEAD:?normocephalic.?SKIN:?good turgor.?HEART:?regular rate and rhythm, no murmurs, rubs, gallops.?LUNGS:?no wheezes, rales, rhonchi, good air movement, clear to auscultation bilaterally.? Assessment: * Assessment: 1.?Arthritis of knee - M17.1 0 (Primary)???2.?Multiple subsegmental pulmonary emboli without acute cor pulmonale - I26.94???3.?CAD (coronary artery disease) - I25.10??? Plan: * Treatment: 2.?Multiple subsegmental pul monary emboli without acute cor pulmonale? Notes: had multiple pulmonary emboli when she came back from knee surgery. explained that after reviewing the records that the reason she went unconscius was that she became hypoxic and hypotense with the pe?? 3.?CAD (coronary artery dise ase)? Notes: not having any pains but needed a refill on ntg?? * Procedure Codes:? * * Sign off status: Completed true * Provider:?Cholo Abdi MD Date:?0 06/10/2024 Generated for Franklin vazquez/Thiago/Haider on:?07/14/2024 12:18 PM EDT History and Physical Notes * HPI (History of Present Illness) Category Sub-Category Detail Notes Category Not es Symptom(s) patient is a 69 yo female here for 6 month follow up visit.left knee is bothering Examination Category Sub-Category Detail Notes Category Not es General Examination GENERAL APPEARANCE: alert, w ell hydrated, in no distress HEAD: normocephalic HEART: regular rate and rhy thm, no murmurs, rubs, gallops LUNGS: no wheezes, rales, r honchi, good air movement, clear to auscultation bilaterally SKIN: good turgor
--- OUTSIDE RECORDS SUMMARY | 2024-07-14 12:18 | XMS_ITS ---
Author Organization [facility] Address [address] [place] [address] Care Team Providers Care Secure Software Assessor Name Role Phone Cholo Abdi MD Primary Care Provider Hilaria Tafoya Unavailable [phone] Allergies Allergen (clinical drug ingredient) Drug/Non Drug [...] 024 Encounters Encounter Location Date Provider Diagnosis [facility] [address] [place] [address] 02/23/2024 Hilaria Israel Fungal infection of nail [...] Reason: Provider Name:Hilaria zimmerman, 08/03/2024 09:30:00 AM, [address] [place] [address], [phone], Procedure Notes * Category Sub-Category Detail [...] use of a nail nipper and/or dremel-type notch grinder, to a more viable healthy nail [...] to maintain effectiveness in symptomatic relief - 96953 Progress Notes * ESPERANZA Rona PDOB: (69 yo F)Acc No.[id number]:02/23/2024 Progress Note Patient:?Rona MATA P Provider:?Hilaria Israel DPM :1955???Age:69 Y???Sex:Female D ate:02/23/2024 Address:[address] [place] [id number] Pcp:Cholo Abdi MD Subjective: * Chief Complaints: [...] use of a nail nipper and/or dremel-type notch grinder, to a more viable healthy nail [...] to maintain effectiveness in symptomatic relief - 42082.? * Procedure Codes:?55362 DEBRI DE NAIL, 6 OR MORE, Modifiers: XS * Follow Up:?2 Months * Images: * Sign off status: Completed true * Provider:?Hilaria Israel DPM Date:? Generated for Franklin vazquez/Thiago/Marysmitting on:?07/14/2024 12:18 PM EDT History and Physical [...]
--- OUTSIDE RECORDS SUMMARY | 2024-07-14 12:19 | XMS_ITS ---
Author Organization [facility] Address [address] [place] [address] Care Team Providers Care Currency Examiner Name Role Phone Cholo Abdi MD Primary Care Provider Hilaria Tafoya Unavailable [phone] Allergies Allergen (clinical drug ingredient) Drug/Non Drug [...] 12/02/2023 Encounters Encounter Location Date Provider Diagnosis [facility] [address] [place] [address] 12/02/2023 Hilaria Israel Fungal infection of nail [...] Reason: Provider Name:Hilaria zimmerman, 08/03/2024 09:30:00 AM, [address] [place] [place] [address], [phone], Procedure Notes * Category Sub-Category Detail Notes [...] as necessary. Patient chooses, no pharmaceutical tx (07334) Progress Notes * Rona MATA PDOB: (68 yo F)Acc No.[id number]:12/02/2023 Progress Note Patient:?Kenneth Rona P Provider:?Hilaria Israel DPM :1955???Age:68 Y???Sex:Female D ate:12/02/2023 Address:[address] [place], [place] [phone] Pcp:Cholo Abdi MD Subjective: * Chief Complaints: [...] as necessary. Patient chooses, no pharmaceutical tx (08865).? * Procedure Codes:?77225 DEBRI DE NAIL, 6 OR MORE, Modifiers: XS * Follow Up:?2 Months * Images: * Sign off status: Completed true * Provider:?Hilaria Israel, DUNCAN Date:? Generated for Franklin vazquez/Thiago/eTransmitting on:?07/14/2024 12:18 PM [...]
--- OUTSIDE RECORDS SUMMARY | 2024-07-14 12:19 | XMS_ITS ---
Author Organization Cholo Abdi MD Address [address] [place] [phone] Care Team Providers Care Screen And Cyclone Repairer Name Role Phone Cholo Abdi Primary Care Provider Allergies No Known Allergies Results Component Value Reference Range Notes XR hand LT min 3V Reviewed date:07/08/2024 12:47:48 PM Interpretation:referral entered Performing Lab: Notes/Report: [address] [address] XRay Report Signed Patient: Rona Mata MR#: [id number] : 1955 Acct:[id number] Age/Sex: 69 / F ADM Date: 07/07/24 Loc: [facility] Attending Dr: Cholo Abdi MD Ordering Physician: Cholo Abdi MD Date of Service: 07/07/24 Procedure(s): XR hand LT min 3V Accession Number(s): [id number] cc: Cholo Abdi MD CLINICAL HISTORY: ecchymosis [...] in OV> 07/07/241652 DD/ 51 TD/TT: 07/07/241651 Foundry Technician: [place] [address] XRay Report Signed Patient: Sammy Mata MR#: [id number] : 1955 Acct:[id number] Age/Sex: 69 / F ADM Date: 07/07/24 Loc: HO.XRAY Attending Dr: Cholo Abdi MD Ordering Physician: Cholo Abdi MD Date of Service: 07/07/24 Procedure(s): XR hand LT min 3V Accession Number(s): [id number] cc: Cholo Abdi MD CLINICAL HISTORY: ec chymosis of forearm 3 views left hand Comparison: None Findings: No dislocations. In the lateral view there is a 3 mm chip fracture of the triquetrum, age undetermined There is moderate de generative narrowing of the 1st CMC joint No radiopaque foreign body Impression: 1. Possible small ch ip fracture of the posterior triquetrum. Check point tenderness. 2. There is 4 mm wid ening of the scapholunate distance, which is sometimes associated with scap holunate ligament tear. This document has be en electronically signed by: Enoch Snyder MD on 07/07/2024 16:52:41 Dictated By: Enoch Snyder MD Signed By: <Electron michelle signed by Enoch Snyder MD in OV> 07/07/241652 DD/ 51 TD/TT: 07/07/241651 Foundry Technician: XR wrist LT min 3V Reviewed date:07/08/2024 12:47:09 PM Interpretation:referral entered Performing Lab: Notes/Report: [address] [address] XRay Report Signed Patient: Rona Mata MR#: [id number] : 1955 Acct:[id number] Age/Sex: 69 / F ADM Date: 07/07/24 Loc: HO.XRAY Attending Dr: Cholo Abdi MD Ordering Physician: Cholo Abdi MD Date of Service: 07/07/24 Procedure(s): XR wrist LT min 3V Accession Number(s): [id number] cc: Cohlo Abdi MD CLINICAL HISTORY: Ecchymosis of forearm [...] in OV> 07/07/241654 DD/ 53 TD/TT: 07/07/241653 Foundry Technician: [address] [address] XRay Report Signed Patient: Sammy Mata MR#: [id number] : 1955 Acct:[id number] Age/Sex: 69 / F ADM Date: 07/07/24 Loc: HO.XRMARISELA Attending Dr: Cholo Abdi MD Ordering Physician: Cholo Abdi MD Date of Service: 07/07/24 Procedure(s): XR wri st LT min 3V Accession Number(s): [id number] cc: Cholo Abdi MD CLINICAL HISTORY: Ec chymosis of forearm 3 views left wrist Comparison: None Findings: No joint dislocation s . There is advanced degenerative narrowing of the 1st CMC joint No radiopaque foreign body Impression: There is a transvers e nondisplaced mildly impacted fracture of the distal radius metaphysis. Distal ulna is unrem arkable. Radial-ulnar joint distance is normal This document has be en electronically signed by: Enoch Snyder MD on 07/07/2024 16:54:02 Dictated By: Enoch Snyder MD Signed By: <Electron ically signed by Enoch Snyder MD in OV> 07/07/241654 DD/ 53 TD/TT: 07/07/241653 Foundry Technician: Reason For Referral Reason Ecchymosis of forear [...] Referral Priority Urgent Referral Appointment Date 07/08/2024 REASON FOR VISIT patient fell , left arm swollen Medications Medication SIG (Take, Route, Frequency, Duration) Notes Start Date End Date Status Tylenol 325 MG 1 tablet as needed Orally every 4 hrs Not-Taking Nitrostat 0.4 MG as directed Sublingu al every 5 mins times 3 for chest pain for 30 days 06/13/2021 Active Ibuprofen 400 MG 1 tablet with food o r milk as needed Orally twice a day for 90 days 01/03/2022 Active Atorvastatin Calcium 40 MG 1 tablet Orally Once a day 09/17/2023 Active Vitamin D 2000 UNIT as directed Orally O nce a day 02/16/2014 Active Vital Signs Blood pressure systolic 132 mm Hg 07/08/19 25 Blood pressure diastolic 80 mm Hg 025 Height 64 in 07/07/2024 Weight 150 lbs 07/07/2024 BMI 25.74 kg/m2 07/07/2024 Encounters Encounter Location Date Provider Diagnosis Cholo Abdi MD [address] [place] [address] [address] [place], [place] [phone] 07/07/2024 Cholo Abdi Ecchymosis of forearm R58 and Facial injury, initial encounter S09.93XA Assessments Encounter Date Diagnosis (ICD Code) Assessment Notes Treatment Notes Treatment Clinical Notes Section Notes 07/07/2024 Ecchymosis of forearm (ICD-10 - R58) pending diagnostic testing, will refer [place] [facility] [place] if they can't see her today/ x-ray orders given to patient 07/07/2024 Facial injury, initial encounter (ICD-10 - S09.93XA) just observe Plan Of Treatment Treatment Notes Assessment Notes Ecchymosis of forearm pending diagnostic testing, will refer [place] [facility] [place] if they can't see her today/ x-ray orders given to patient Facial injury, initial encounter just ob serve Referrals Referral Date Details 07/07/2024 07/07/2024, Ecchymos is of forearm, Fatoumata Betancourt Next Appt Details Provider Name:Cholo Brown ier, 09/12/2024 07:45:00 AM, [address] [place] [address], Suite [facility], [place], [place], [phone], Provider Name:Cholo Brown ier, 09/19/2024 09:30:00 AM, [address] [place] [address], [address], [place], [place], [phone], Progress Notes * RONA MATA PDOB: (69 yo F)Acc No.[id number]:07/07/2024 Progress Notes Patient:?RONA MATA Provider:?Cholo Abdi MD :1955???Age:69 Y???Sex:Female D ate:07/07/2024 Address:[address] [place], [place] [phone] Subjective: * Chief Complaints: * ???Patient fell , left arm s wollen * HPI: ???Fall Risk:?History?Have you had any falls with injury in the past year??Yes 06-25-24 tripped over coffee table fell onto an end table hit her jaw and landed on left hand. Patient did go to Urgent Care but they would not see her due to hitting her head. Istructed to go to ER. Patient did not go to the ER. Today left hand is very swollen,?Have you had two or more falls in the past year??No.?Symptom(s):? patient is a 69 yo female tripped on table and? hurt left hand and hit chin is doing better??except for her hand. * ROS:?General/Constitutional:?Denies?Chills.?Denies?Fatigue.?Denies?Fever.?Denies?Headache.?ENT:?Denies?Sore throat.?Respiratory:?Denies?Cough.?Denies?Shortness of breath at rest.?Denies?Shortness of breath with exertion.?Gastrointestinal:?Denies?Diarrhea.?Denies?Nausea.? * Medical History:? * Surgical History:? * Hospitalization/Major Diagno stic Procedure:? * Medications:?TakingIbuprofen 400 MG Tablet 1 tablet with food or milk as needed Orally twice a day Vitamin D 2000 UNIT Tablet as directed Orally Once a day Atorvastatin Calcium 40 MG Tablet 1 tablet Orally Once a day Nitrostat 0.4 MG Tablet Sublingual as directed Sublingual every 5 mins times 3 for chest pain Taking Ibuprofen 400 MG Tablet 1 tablet with food or milk as needed Orally twice a day Taking Vitamin D 2000 UNIT Tablet as directed Orally Once a day Taking Atorvastatin Calcium 40 MG Tablet 1 tablet Orally Once a day Taking Nitrostat 0.4 MG Tablet Sublingual as directed Sublingual every 5 mins times 3 for chest pain Not-Taking/PRNTylenol 325 MG Tablet 1 tablet as needed Orally every 4 hrs Medication List reviewed and reconciled with the patientNot-Taking/PRN Tylenol 325 MG Tablet 1 tablet as needed Orally every 4 hrs Medication List reviewed and reconciled with the patient * Allergies:?N.K.D.A.yes[Aller gies Verified] Objective: * Vitals:?Ht: 64, Wt: 150, BMI :25.74, BP:132/80, Wt-k.04. * Examination: ???General Examination: ?GENERAL APPEARANCE:?well developed, well nourished.?SKIN:?abnormal with an ecchymotic chin and swelling in left hand. on the dorsum. has ecchymosis there as well..? Assessment: * Assessment: 1.?Ecchymosis of forearm - R 58 (Primary)???2.?Facial injury, initial encounter - S09.93XA??? Plan: * Treatment: 2.?Facial injury, initial en counter? Notes: just observe?? * Procedure Codes:? * * Sign off status: Completed true * Provider:?Cholo Abdi MD Date:?0 07/07/2024 Generated for Franklin vazquez/Thiago/eTransmitting on:?07/14/2024 12:19 PM EDT History and Physical Notes * HPI (History of Present Illness) Category Sub-Category Detail Notes Category Not es Symptom(s) patient is a 69 yo female tripped on table and hurt left hand and hit chin is doing better except for her hand Fall Risk History Have you had any falls with injury in the past year?: Yes 06-25-24 tripped over coffee table fell onto an end table hit her jaw and landed on left hand. Patient did go to Urgent Care but they would not see her due to hitting her head. Istructed to go to ER. Patient did not go to the ER. Today left hand is very swollen Have you had two or more falls in the st year?: No Examination Category Sub-Category Detail Notes Category Not es General Examination GENERAL APPEARANCE: well developed , well nourished SKIN: abnormal with an ecc hymotic chin and swelling in left hand. on the dorsum. has ecchymosis there as well. Consultation Request Notes Referral Date Referring Provider Referred Provider Not es 07/07/2024 Cholo Abdi Allison Ecchym osis of forearm
--- OUTSIDE RECORDS SUMMARY | 2024-07-14 12:19 | XMS_ITS | Patient Health Record ---
Author Organization [facility] Address [address] [place] [address] Care Team Providers Care Seal Skinner Name Role Phone Cholo Abdi MD Primary Care Provider Hilaria Tafoya Unavailable [phone] Allergies Allergen (clinical drug ingredient) Drug/Non Drug [...] 05/17/2024 Encounters Encounter Location Date Provider Diagnosis [address] [address] 09/18/2023 Hilaria Perica 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 ; Pain in right toe(s) M79.674 and Pain in left toe(s) M79.[address] [address] 12/02/2023 Hilaria Perica 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 ; Pain in right toe(s) M79.674 and Pain in left toe(s) M79.[address] [address] 02/23/2024 Hilaria Perica 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 ; Pain in right toe(s) M79.674 and Pain in left toe(s) M79.[address] [address] 05/17/2024 Hilaria Perica Fungal infection of nail [...] Details Provider Name:Hilaria zimmerman, 08/03/2024 09:30:00 AM, [address] [place] [address], [phone], Insurance Providers Payer Name Payer Address Payer Phone Subscriber Number Group Number Insured Name Patient Relationship to Insured Coverage Start Date Coverage End Date Medicare National Govt Sv[employer] [address] [place] [address] [id number] Rona Cooper Self - patient is the insured [employer] [address] [place] [address] [id number] Rona Cooper Self - patient is the insured Medical (General) History Medical History History ICD Code Back,Hip,and Knee pain Surgical History Surgery Date(Month/Year) Appendix 1968 Knee replacement Surgery - right knee
== END 2024-07-14 11:39 | disposition home or self-care (01) ==
PROVIDERS: PCP Internal Medicine; Visit Provider Physician Assistant
DX: S52.502A Unspecified fracture of the lower end of left radius, initial encounter for closed fracture (principal)
CPT/HCPCS: 29125; 99024

== ENCOUNTER → 2024-07-14 10:49 | Outpatient (BNVA) | payer MEDICARE, SELFPAY | PROVIDERS: PCP Internal Medicine; Visit Provider Physician Assistant | DX: S52.502A Unspecified fracture of the lower end of left radius, initial encounter for closed fracture (principal) | CPT/HCPCS: 29125; 99212 ==

== ENCOUNTER 2024-07-22 08:04 | Outpatient (REF) | payer MEDICARE, SELFPAY ==
--- NOTE | ~2024-07-22 | XR_ITS ---
EXAMINATION: XR WRIST, LEFT CLINICAL INFORMATION: M25.532 - Pain in left wrist COMPARISON: 07/08/2024, 07/07/2024. TECHNIQUE: PA, lateral, oblique, and scaphoid views of the left wrist. FINDINGS: Diffuse osteopenia. Redemonstration of transverse fracture of the distal radial metaphysis. Fracture lines are slightly less distinct but still visible. No change in alignment. 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 Anatomic alignment. Normal appearing soft tissues. XR/XR wrist LT w scaphoid IMPRESSION: Osteopenia. Nondisplaced transverse fracture of the distal radial metaphysis without significant change. Electronically signed by: Fidel Hebert MD 07/22/2024 10:22 AM EDT
--- OUTSIDE RECORDS SUMMARY | 2024-07-22 08:08 | XMS_ITS | Patient Health Record ---
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 ; Pain in right toe(s) M79.674 and Pain in left toe(s) M79.[address] [address] 02/23/2024 Hilaria Perica 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 ; Pain in right toe(s) M79.674 and Pain in left toe(s) M79.[address] [address] 05/17/2024 Hilaria Perica Fungal infection of nail [...] Details Provider Name:Hilaria zimmerman, 08/03/2024 09:30:00 AM, [address] [place] [address], [phone], Insurance Providers Payer Name Payer Address Payer Phone Subscriber Number Group Number Insured Name Patient Relationship to Insured Coverage Start Date Coverage End Date Medicare National Govt Svcs [employer] [address] [place] [address] [id number] Rona Cooper Self - patient is the insured [employer] [address] [place] [address] [id number] Rona Cooper Self - patient is the insured Medical (General) History Medical History History ICD Code Back,Hip,and Knee pain Surgical History Surgery Date(Month/Year) Appendix 1968 Knee replacement Surgery - right knee
--- OUTSIDE RECORDS SUMMARY | 2024-07-22 08:08 | XMS_ITS ---
Author Organization Cholo Abdi MD Address [address] [place] [phone] Care Team Providers Care Dope Heater Name Role Phone Cholo Abdi Primary Care Provider Allergies No Known Allergies REASON FOR VISIT [...] Date Provider Diagnosis Cholo Abdi MD [address] [place] [address] Drive [address] [place], [place] [phone] 06/10/2024 Cholo Abdi Arthritis of knee M17.10 [...] Details Provider Name:Cholo olsonr, 09/12/2024 07:45:00 AM, [address] [place] [address], Suite [facility], [place], [place], [phone], Provider Name:Cholo lai, 09/19/2024 09:30:00 AM, [address] [place] [address], [address] [place] [address], [phone], Progress Notes * DEVIN MATA PDOB: (69 yo F)Acc No.[id number]:06/10/2024 Progress Notes Patient:?DEVIN MAAT Provider:?Cholo Abdi MD :1955???Age:69 Y???Sex:Female D ate:06/10/2024 Address:[address] [place], [place] [address] Subjective: * Chief Complaints: * ???6 month [...] MD Date:?0 06/10/2024 Generated for Franklin vazquez/Thiago/Haider on:?07/22/2024 08:08 AM EDT History and Physical Notes * [...]
--- OUTSIDE RECORDS SUMMARY | 2024-07-22 08:08 | XMS_ITS ---
Author Organization [facility] Address [address] [place] [address] Care Team Providers Care Supervisor Production Managing Name Role Phone Cholo Abdi MD Primary Care Provider Hilaria Tafoya Unavailable [phone] Allergies Allergen (clinical drug ingredient) Drug/Non Drug [...] 024 Encounters Encounter Location Date Provider Diagnosis [facility] [address] [place] [address] 02/23/2024 Hilaria Israel Fungal infection of nail [...] Reason: Provider Name:Hilaria zimmerman, 08/03/2024 09:30:00 AM, [address] [place] [address], [phone], Procedure Notes * Category Sub-Category Detail [...] use of a nail nipper and/or dremel-type edge grinder, to a more viable healthy nail [...] to maintain effectiveness in symptomatic relief - 847[address] Progress Notes * ESPERANZA Rona PDOB: (69 yo F)Acc No.[id number]:02/23/2024 Progress Note Patient:?Rona MATA P Provider:?Hilaria Israel DPM :1955???Age:69 Y???Sex:Female D ate:02/23/2024 Address:[address] [place] [phone] Pcp:Cholo Abdi MD Subjective: * Chief Complaints: [...] use of a nail nipper and/or dremel-type edge grinder, to a more viable healthy nail [...] to maintain effectiveness in symptomatic relief - 59931.? * Procedure Codes:?63569 DEBRI DE NAIL, 6 OR MORE, Modifiers: XS * Follow Up:?2 Months * Images: * Sign off status: Completed true * Provider:?Hilaria Israel DPM Date:? Generated for Franklin vazquez/Thiago/[place] on:?07/22/2024 08:08 AM EDT History and Physical [...]
--- OUTSIDE RECORDS SUMMARY | 2024-07-22 08:08 | XMS_ITS ---
Author Organization [facility] Christine serenity Rison Address [address] [place] [address] Care Team Providers Care Optical Designer Name Role Phone Cholo Abdi MD Primary Care Provider Hilaria Tafoya Unavailable [phone] Allergies Allergen (clinical drug ingredient) Drug/Non Drug [...] 025 Encounters Encounter Location Date Provider Diagnosis [facility] [address] [place] [address] 05/17/2024 Hilaria Israel Fungal infection of nail [...] Reason: Provider Name:Hilaria zimmerman, 08/03/2024 09:30:00 AM, [address] [place] [address], [place], [phone], Procedure Notes * Category Sub-Category Detail Notes [...] of a nail nipper and/or dremel-type precision thread grinder operator, to a more viable healthy nail plate [...] to maintain effectiveness in symptomatic relief - 39075 Progress Notes * Rona MATA PDOB: 4 (69 yo F)Acc No.[id number]:05/17/2024 Progress Note Patient:?ESPERANZA Rona P Provider:?Hilaria Israel DPM :1955???Age:69 Y???Sex:Female D ate:05/17/2024 Address:[address] [place] [address], [place], [id number] Pcp:Cholo Abdi MD Subjective: * Chief Complaints: [...] yes[Allergies Verified] Objective: * Vitals:?Ht:5ft3in, Wt:150, B DC:26.57, Shoe size:6, BP:120/60mm Hg, Ht-cm: 160.02 cm, [...] of a nail nipper and/or dremel-type precision thread grinder operator, to a more viable healthy nail plate [...] to maintain effectiveness in symptomatic relief - [address].? * Procedure Codes:?84642 DEBRI DE NAIL, 6 OR MORE, Modifiers: XS * Follow Up:?2 Months * Images: * Sign off status: Completed true * Provider:?Hilaria Israel, DUNCAN Date:?01/2025 Generated for Franklin vazquez/Thiago/Haider on:?07/22/2024 08:07 AM EDT History and Physical Notes * [...]
--- OUTSIDE RECORDS SUMMARY | 2024-07-22 08:08 | XMS_ITS ---
Author Organization [facility] Address [address] [place] [address] Care Team Providers Care Indexer Name Role Phone Cholo Abdi MD Primary Care Provider Hilaria Tafoya Unavailable [phone] Allergies Allergen (clinical drug ingredient) Drug/Non Drug [...] 12/02/2023 Encounters Encounter Location Date Provider Diagnosis [facility] [address] [place] [address] 12/02/2023 Hilaria Israel Fungal infection of nail [...] Reason: Provider Name:Hilaria zimmerman, 08/03/2024 09:30:00 AM, [address] [place] [address], [phone], Procedure Notes * Category Sub-Category Detail Notes [...] as necessary. Patient chooses, no pharmaceutical tx (87468) Progress Notes * Rona MATA PDOB: (68 yo F)Acc No.[id number]:12/02/2023 Progress Note Patient:?Kenneth Rona P Provider:?Hilaria Israel DPM :1955???Age:68 Y???Sex:Female D ate:12/02/2023 Address:[address] [place], [place] [address] Pcp:Cholo Abdi MD Subjective: * Chief Complaints: [...] as necessary. Patient chooses, no pharmaceutical tx (14869).? * Procedure Codes:?45712 DEBRI DE NAIL, 6 OR MORE, Modifiers: XS * Follow Up:?2 Months * Images: * Sign off status: Completed true * Provider:?Hilaria Israel, DUNCAN Date:? Generated for Franklin vazquez/Thiago/eTransmitting on:?07/22/2024 08:08 AM EDT History and Physical [...]
--- OUTSIDE RECORDS SUMMARY | 2024-07-22 08:08 | XMS_ITS ---
Author Organization Cholo Abdi MD Address [address] [place] [phone] Care Team Providers Care Press Cleaner Name Role Phone Cholo Abdi Primary Care Provider Allergies No Known Allergies Results Component Value Reference Range Notes XR hand LT min 3V Reviewed date:07/08/2024 12:47:48 PM Interpretation:referral entered Performing Lab: Notes/Report: [address] [address] XRay Report Signed Patient: Rona Mata MR#: [id number] : 1955 Acct:[id number] Age/Sex: 69 / F ADM Date: 07/07/24 Loc: [facility] Attending Dr: Cholo Abdi MD Ordering Physician: hColo Abdi MD Date of Service: 07/07/24 Procedure(s): XR hand LT min 3V Accession Number(s): [id number] cc: Cholo Abdi MD CLINICAL HISTORY: ecchymosis [...] in OV> 07/07/241652 DD/ 51 TD/TT: 07/07/241651 Medical Records Assistant: [place] [address] XRay Report Signed Patient: Sammy Mata MR#: [id number] : 1955 Acct:[id number] Age/Sex: 69 / F ADM Date: 07/07/24 Loc: HO.XRAY Attending Dr: Cholo Abdi MD Ordering Physician: Cholo Abdi MD Date of Service: 07/07/24 Procedure(s): XR hand LT min 3V Accession Number(s): [id number] cc: Cholo Abdi MD CLINICAL HISTORY: ec [...] in OV> 07/07/241652 DD/ 51 TD/TT: 07/07/241651 Medical Records Assistant: XR wrist LT min 3V Reviewed date:07/08/2024 12:47:09 PM Interpretation:referral entered Performing Lab: Notes/Report: [address] [address] XRay Report Signed Patient: Rona Mata MR#: [id number] : 1955 Acct:[id number] Age/Sex: 69 / F ADM Date: 07/07/24 Loc: HO.XRAY Attending Dr: Cholo Abdi MD Ordering Physician: Cholo Abdi MD Date of Service: 07/07/24 Procedure(s): XR wrist LT min 3V Accession Number(s): [id number] cc: Cholo Abdi MD CLINICAL HISTORY: Ecchymosis [...] in OV> 07/07/241654 DD/ 53 TD/TT: 07/07/241653 Medical Records Assistant: [address] [address] XRay Report Signed Patient: Sammy Mata MR#: [id number] : 1955 Acct:[id number] Age/Sex: 69 / F ADM Date: 07/07/24 Loc: HO.XRMARISELA Attending Dr: Cholo Abdi MD Ordering Physician: Cholo Abdi MD Date of Service: 07/07/24 Procedure(s): XR wri st LT min 3V Accession Number(s): [id number] cc: Cholo Abdi MD CLINICAL HISTORY: Ec [...] in OV> 07/07/241654 DD/ 53 TD/TT: 07/07/241653 Medical Records Assistant: Reason For Referral Reason Ecchymosis of forear m Diagnosis 1 Ecchymosis of forear m (R58) Referral Organization Cholo Abdi MD Referring Provider First Name Cholo Referring Provider Last Name Trniidad Referring Provider Speciality Internal M edicine Referred [...] Location Date Provider Diagnosis Cholo Abdi MD [address] [place] [address] [address] [place], [place] [phone] 07/07/2024 Cholo Abdi Ecchymosis of forearm R58 and Facial injury, initial encounter S09.93XA Assessments Encounter Date Diagnosis (ICD Code) Assessment Notes Treatment Notes Treatment Clinical Notes Section Notes 07/07/2024 Ecchymosis of forearm (ICD-10 - R58) pending diagnostic testing, will refer to [facility] ortho. if they can't see her today/ x-ray orders given to patient 07/07/2024 Facial injury, initial encounter (ICD-10 - S09.93XA) just observe Plan Of Treatment Treatment Notes Assessment Notes Ecchymosis of forearm pending diagnostic testing, will refer to [facility] ortho. if they can't see her today/ x-ray orders given to patient Facial injury, initial encounter just ob serve Referrals Referral Date Details 07/07/2024 07/07/2024, Ecchymos is of forearm, Fatoumata Betancourt Next Appt Details Provider Name:Cholo Bronw ier, 09/12/2024 07:45:00 AM, [address] [place] [address], Suite [facility], [place], [place], [phone], Provider Name:Cholo Brown ier, 09/19/2024 09:30:00 AM, [address] [place] [address], [address], [place], [place], [phone], Progress Notes * RONA MATA PDOB: (69 yo F)Acc No.[id number]:07/07/2024 Progress Notes Patient:?RONA MATA Provider:?Cholo Abdi MD :1955???Age:69 Y???Sex:Female D ate:07/07/2024 Address:[address] [place], [place] [phone] Subjective: * Chief Complaints: * [...] MD Date:?0 07/07/2024 Generated for Franklin vazquez/Thiago/eTransmitting on:?07/22/2024 08:08 AM [...] with injury in the past year?: Yes 24 tripped over coffee table fell onto an [...]
--- OUTSIDE RECORDS SUMMARY | 2024-07-22 08:08 | XMS_ITS ---
Author Organization Cholo Abdi MD Address [address] [place] [phone] Care Team Providers Care Multi Operation Machine Operator Name Role Phone Cholo Abdi Primary Care [...] Location Date Provider Diagnosis Cholo Abdi MD [address] [place] [address] [address] [place], [place] [phone] 07/14/2024 Cholo Abdi Hematoma T14.8XXA and Shoulder [...] Provider Name:Cholo Brown ier, 09/12/2024 07:45:00 AM, [address] [place] [address], Suite [facility], [place], [place], [phone], Provider Name:Cholo Brown ier, 09/19/2024 09:30:00 AM, [address] [place] [address], [place] [address], [place], [place], [phone], Progress Notes * DEVIN MATA PDOB: (69 yo F)Acc No.[id number]:07/14/2024 Progress Notes Patient:?ESPERANZA DEVIN Judd Provider:?Cholo Abdi MD :1955???Age:69 Y???Sex:Female D ate:07/14/2024 Address:[address] [place] [address] [place], [phone] Subjective: * Chief Complaints: * ???Check chin after her fall * HPI: ???Symptom(s):?patient is a 69 yo [...] gies Verified] Objective: * Vitals:?Ht: 64, Wt: 149, BMI [...] sure she keeps range of motion?? * Procedure Codes:? * * Sign off status: Completed true * Provider:?Cholo Abdi MD Date:?0 07/14/2024 Generated for Bernardoi george/Thiago/eTransmitting on:?07/22/2024 08:08 AM EDT History and Physical [...]
--- OUTSIDE RECORDS SUMMARY | 2024-07-22 08:08 | XMS_ITS | Patient Health Record ---
Author Organization Cholo Abdi MD Address [address] [place], [place] [id number] Care Team Providers Care Rugby League Footballer Name Role Phone Cholo Abdi Primary Care Provider Allergies No Known Allergies Results Component Value Reference Range Notes Complete Blood Count Auto Di ff Reviewed date:09/08/2023 12:54:23 PM Interpretation: Performing Lab:[facility], [address] [place] [phone] Notes/Report: White Blood Count 6.7 4.8-10.8 X10*3/uL [...] Panel Reviewed date:09/08/2023 02:56:13 PM Interpretation: Performing Lab:[address] [phone] Notes/Report: Triglycerides 106 <150 mg/dL Desirable Triglyceride: [...] Total Reviewed date:09/08/2023 02:56:02 PM Interpretation: Performing Lab:[address] [place] [address] Notes/Report: Vitamin D 25-OH Total 31.6 >30 [...] Random Reviewed date:09/08/2023 04:20:33 PM Interpretation: Performing Lab:[address] [address] Notes/Report: Creatinine Urine 112.55 Microalbumin Urine 9.0 Microalbum/Creatinine Ratio Ur 7.9 <30 ug/mg cr Albumin/Creatinine Ratio Reference Ranges: Normal: < 30 ug/mg creatinine Microalbuminuria: 30 - 300 ug/mg creatinine Clinical Albuminuria: > 300 ug/mg creatinine Hemoglobin A1c Reviewed date:09/08/2023 12:38:21 PM Interpretation: Performing Lab:[facility], [address] [place] [phone] Notes/Report: Hemoglobin A1c % 5.5 <6.0 % [...] average glucose, using the formula of the O5S-Gnvctah Average Glucose study (ADAG), Diabetes Care, Vol.31,#8, Oct. 2007 UA ClnCatch+Micro w/rflx Cul t Reviewed date:09/08/2023 02:55:52 PM Interpretation: Performing Lab:[facility], [address] [place] [phone] Notes/Report: Urine, Clean Catch Color Urine Yellow Appearance Urine Cloudy PH 6.0 5.0-9.0 Glucose Urine UA Negative Negative mg/dL Urine Blood Negative Negative Specific Ada - Urine 1.020 1.005-1.025 Urine Protein Negative Neg-Trace mg/dL Urine Ketones Negative Negative mg/dL Nitrite Urine Negative Negative Leukocyte Esterase Urine Large (3+) Negative RBC Urine 0-2 0-2 /HPF WBC Urine 21-50 0-5 /HPF Squamous Epithelial Cell Urine 6-10 0-2 /HPF Bacteria Urine 2+ None Seen Hyaline Casts Urine 0-2 0-2 /LPF Liver Panel Reviewed date:12/04/2023 01:43:03 PM Interpretation: Performing Lab:[facility], [address] [place] [phone] Notes/Report: Bilirubin Total 0.4 0.0-1.0 mg/dL Bilirubin Direct 0.2 0.0-0.5 mg/dL Aspartate Amino Transferase 32 5-31 U/L Alanine Aminotransferase 46 0-31 U/L Total Protein 6.9 6.5-8.0 g/dL Albumin Level 3.9 3.5-5.0 g/dL Alkaline Phosphatase 119 39-117 U/L Lipid Panel Reviewed date:12/04/2023 01:42:45 PM Interpretation: Performing Lab:[facility], [address] [place] [phone] Notes/Report: Triglycerides 67 <150 mg/dL Desirable Triglyceride: [...] Panel Reviewed date:02/08/2024 05:21:38 PM Interpretation: Performing Lab:[facility], [address] [place] [phone] Notes/Report: Bilirubin Total 0.4 0.0-1.0 mg/dL Bilirubin Direct 0.2 0.0-0.5 mg/dL Aspartate Amino Transferase 26 5-31 U/L Alanine Aminotransferase 19 0-31 U/L Total Protein 6.8 6.5-8.0 g/dL Albumin Level 3.9 3.5-5.0 g/dL Alkaline Phosphatase 106 39-117 U/L XR hand LT min 3V Reviewed date:07/08/2024 12:47:48 PM Interpretation:referral entered Performing Lab: Notes/Report: [address] [address] XRay Report Signed Patient: Rona Mata MR#: [id number] : 1955 Acct:[id number] Age/Sex: 69 / F ADM Date: 07/07/24 Loc: HO.TIMMY Attending Dr: Cholo Abdi MD Ordering Physician: Cholo Abdi MD Date of Service: 07/07/24 Procedure(s): XR hand LT min 3V Accession Number(s): [id number] cc: Cholo Abdi MD CLINICAL HISTORY: ecchymosis [...] in OV> 07/07/241652 DD/ 51 TD/TT: 07/07/241651 Aerodynamics Professor: [place] [address] XRay Report Signed Patient: Sammy Mata MR#: [id number] : 1955 Acct:[id number] Age/Sex: 69 / F ADM Date: 07/07/24 Loc: HOPurviXRAY Attending Dr: Cholo Abdi MD Ordering Physician: Cholo Abdi MD Date of Service: 07/07/24 Procedure(s): XR sierra d LT min 3V Accession Number(s): [id number] cc: Cholo Abdi MD CLINICAL HISTORY: ecchymosis [...] in OV> 07/07/241652 DD/ 51 TD/TT: 07/07/241651 Aerodynamics Professor: XR wrist LT min 3V Reviewed date:07/08/2024 12:47:09 PM Interpretation:referral entered Performing Lab: Notes/Report: [address] [address] XRay Report Signed Patient: Rona Mata MR#: [id number] : 1955 Acct:[id number] Age/Sex: 69 / F ADM Date: 07/07/24 Loc: CAMILLA Attending Dr: Cholo Abdi MD Ordering Physician: Cholo Abdi MD Date of Service: 07/07/24 Procedure(s): XR wrist LT min 3V Accession Number(s): [id number] cc: Cholo Abdi MD CLINICAL HISTORY: Ecchymosis [...] in OV> 07/07/241654 DD/ 53 TD/TT: 07/07/241653 Aerodynamics Professor: [address] [address] XRay Report Signed Patient: Sammy Mata MR#: [id number] : 1955 Acct:[id number] Age/Sex: 69 / F ADM Date: 07/07/24 Loc: HO.XRAY Attending Dr: Cholo Abdi MD Ordering Physician: Cholo Abdi MD Date of Service: 07/07/24 Procedure(s): XR wri st LT min 3V Accession Number(s): [id number] cc: Cholo Abdi MD CLINICAL HISTORY: Ecchymosis [...] in OV> 07/07/241654 DD/ 53 TD/TT: 07/07/241653 Aerodynamics Professor: Jodi Leon Panel Reviewed date:09/08/2023 04:27:03 PM Interpretation: Performing Lab:[facility], [address] [place] [phone] Notes/Report: Sodium 142 135-145 mmol/L Potassium 4.4 3.3-5.1 mmol/L Chloride 109 96-108 mmol/L Carbon Dioxide 26 22-29 mmol/L Anion Gap 11 12-20 Blood Urea Nitrogen 16 9-16 mg/dL Creatinine 0.76 0.5-1.4 mg/dL Estimated Glomerular Filt Rate > 60 NOTE: For -Belizean individuals, multiply the result by 1.210. Chronic [...] Gold Reviewed date:09/08/2023 12:34:06 PM Interpretation: Performing Lab:[facility], [address] [place] [phone] Notes/Report: Hold Gold See Note Specimen held untested for 24 hours; Call to request Chemistry testing. Urine Culture Reviewed date:09/10/2023 03:05:05 PM Interpretation: Performing Lab:[facility], [address] [place] [phone] Notes/Report: Urine Culture No growth. US extremity nonvascular Reviewed date:10/16/2023 09:42:26 AM Interpretation: Performing Lab: Notes/Report: [address] [address] Ultrasound Report Signed Patient: Rona Mata MR#: [id number] : 1955 Acct:[id number] Age/Sex: 68 / F ADM Date: 09/29/23 Loc: HO.US Attending Dr: Cholo Abdi MD Ordering Physician: Cholo Abdi MD Date of Service: 09/29/23 Procedure(s): US extremity nonvascular Accession Number(s): [id number] cc: Cholo Abdi MD EXAMINATION: US EXTREMITY, [...] MD in OV> 10/15/232132 DD/ 1350 TD/TT: Aerodynamics Professor: [place] [address] Ultrasound Report Signed Patient: Sammy Mata MR#: [id number] : 1955 Acct:[id number] Age/Sex: 68 / F ADM Date: 09/29/23 Loc: HO.US Attending Dr: Cholo Abdi MD Ordering Physician: Cholo Abdi MD Date of Service: 09/29/23 Procedure(s): US extremity nonvascular Accession Number(s): [id number] cc: Cholo Abdi MD EXAMINATION: US EXTREMITY, [...] MD in OV> 10/15/232132 DD/ 1350 TD/TT: Aerodynamics Professor: SS XR wrist LT min 3V Reviewed date:07/08/2024 05:01:40 PM Interpretation: Performing Lab: Notes/Report: [place] [facility] [address] [place] [address] XRay Report Signed Patient: Rona Mata MR#: [id number] : 1955 Acct:[id number] Age/Sex: 69 / F ADM Date: 07/08/24 Loc: DAINA Attending Dr: Nikita ROSS Ordering Physician: Nikita Talavera Date of Service: 07/08/24 Procedure(s): XR wrist LT min 3V Accession Number(s): [id number] cc: Nikita Talavera; Cholo Abdi MD EXAMINATION: [...] 07/08/24 1223 DD/ 1006 TD/TT: 07/08/24 1010 Aerodynamics Professor: [facility] [address] [place] [address] XRay Report Signed Patient: Sammy Mata MR#: [id number] : 1955 Acct:[id number] Age/Sex: 69 / F ADM Date: 07/08/24 Loc: DAINA Attending Dr: Nikita ROSS Ordering Physician: Nikita Talavera Date of Service: 07/08/24 Procedure(s): XR wri st LT min 3V Accession Number(s): [id number] cc: Nikita Talavera ; Cholo Abdi MD [...] 07/08/24 1223 DD/ 1006 TD/TT: 07/08/24 1010 Aerodynamics Professor: Reason For Referral Reason Ecchymosis of forear [...] Vaccine Unknown 07/18/2020 Administered Stew Mathias at [employer] Influenza High Dose IM Intramuscular [...] Problem Status W/U Status Risk Notes Problem 42775912 Vitamin D deficiency (E55.9) Active confirmed Problem 795259587 Osteopenia (M85.80) Active confirmed Problem Age related osteoporosis (65025543) Age related osteoporosis (M81.0) Active confirmed Problem 65948764 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) Active confirmed Vital Signs Blood pressure diastolic 70 mm Hg 07/14/2024 Height 64 in 07/14/2024 Blood pressure systolic 132 mm Hg 07/14/2024 Weight 149 lbs 07/14/2024 BMI 25.57 kg/m2 07/14/2024 Encounters Encounter Location Date Provider Diagnosis Cholo Abdi MD [address] [place] [phone] 09/08/2023 Cholo Abdi Vitamin D deficiency E55.9 ; Elevated LDL cholesterol level E78.00 ; Prediabetes R73.03 and CAD (coronary artery disease) I25.10 Cholo Abdi MD [address] [phone] 12/04/2023 Cholo Abdi Elevated LDL cholesterol level E78.00 ; CAD (coronary artery disease) I25.10 and Encounter for immunization Z23 Cholo Abdi MD [address] [id number] 02/08/2024 Cholo Abdi CAD (coronary artery disease) I25.10 Cholo Abdi MD [address] [id number] 09/17/2023 Cholo Abdi Elevated LDL cholesterol level E78.00 ; Vitamin D deficiency E55.9 ; CAD (coronary artery disease) I25.10 ; Soft tissue mass M79.89 ; Prediabetes R73.03 and Encounter for screening for depression Z13.31 Cholo Abdi MD [address] [place] [phone] 12/11/2023 Cholo Abdi Cervical disc diseas e M50.90 ; CAD (coronary artery disease) I25.10 and Multiple subsegmental pulmonary emboli without acute cor pulmonale I26.94 Cholo Abdi MD [address] [place] [id number] 06/10/2024 Cholo Abdi Arthritis of knee M17.10 ; Multiple subsegmental pulmonary emboli without acute cor pulmonale I26.94 and CAD (coronary artery disease) I25.10 Cholo Abdi MD [address] [place], [place] [phone] 07/07/2024 Cholo Abdi Ecchymosis of forear m R58 and Facial injury, initial encounter S09.93XA Cholo Abdi MD [address] [place], [place] [phone] 07/14/2024 Cholo Hoskinsardier Hematoma T14.8XXA an d Shoulder injury S49.90XA Assessments Encounter Date Diagnosis (ICD Code) Assessment Notes Treatment Notes Treatment Clinical Notes Section Notes 09/08/2023 Vitamin D deficiency (ICD-10 - E55.9) 09/08/2023 Elevated LDL cholesterol level (ICD-10 - E78.00) 12/04/2023 Elevated LDL cholesterol level (ICD-10 - E78.00) 12/04/2023 CAD (coronary artery disease) (ICD-10 - I25.10) 02/08/2024 CAD (coronary artery disease) (ICD-10 - I25.10) 09/17/2023 Elevated LDL cholesterol level (ICD-10 - [...] R58) pending diagnostic testing, will refer to [facility] ortho. if they can't see her today/ x-ray orders given to patient 07/07/2024 Facial injury, initial encounter (ICD-10 - S09.93XA) just observe 07/14/2024 Hematoma (ICD-10 - T14.8XXA) use warm compresses and no other treatment needed 07/14/2024 Shoulder injury (ICD-10 - S49.90XA) to make sure she keeps range of motion 09/08/2023 Prediabetes (ICD-10 - R73.03) 12/04/2023 Encounter [...] mass (ICD-10 - M79.89) order faxed to [facility] CS dept, pending diagnostic [...] Name:Cholo Brown ier, 09/12/2024 07:45:00 AM, [address], [address], [place], [place], [phone], Provider Name:Cholo Brown ier, 09/19/2024 09:30:00 AM, [address], [address], [place], [place], [phone], Insurance Providers Payer Name Payer Address Payer Phone Subscriber Number Group Number Insured Name Patient Relationship to Insured Coverage Start Date Coverage End Date MEDICARE NHIC [place] [place] [address] [id number] ESPERANZA RONA Self - patient is the insured [employer] [facility] [address] [place], [place] [id number] ESPERANZA RONA Self - patient is the insured Medical (General) History Medical History History ICD Code discussed, RECORDS ANALYST & Mammo info to pt isabella so appt at [facility] colonoscopy done 06/16/2006, repeat in 10 years; Negative Cologuard 10/28/2018. cologuard negative 09/25/22
== END 2024-07-22 08:05 | disposition home or self-care (01) ==
LOC: HO.HOSX 08:04
DX: Z47.89 Encounter for other orthopedic aftercare (principal); S52.502D Unspecified fracture of the lower end of left radius, subsequent encounter for closed fracture with routine healing; M25.532 Pain in left wrist
CPT/HCPCS: 29075; 73110; 99212

== ENCOUNTER 2024-07-22 08:37 | Outpatient (AMB) | payer MEDICARE, SELFPAY ==
--- NOTE | 2024-07-22 08:48 | A.OFFVIS_ITS ---
Vital Signs 07/22/24 08:53 Height 5 ft 4 in Weight 154 lb BMI 26.4 Intake Visit Reasons: OV- L distal radius fx DOI 07/05/24 Intake Note: Rona is a 69 year old right hand dominant female who presents today for a follow up about 2 weeks s/p Left Distal Radius Fracture 07/05/24. She tripped over the coffee table landing on her left arm. At the time of her last visit she was placed in a splint due to swelling. She was seen in office about 1 week later for a splint change as it was loose from swelling decreasing, she was placed in a new volar wrist splint Pt states she does have some tingling sensations in her index,middle, and ring finger. Allergies meperidine [From Demerol] Allergy (Unknown, Verified 07/22/24 08:48) Nausea and Vomiting HPI HPI OV- L distal radius fx DOI 07/05/24: Details: Rona is a 69 year old right hand dominant female who presents today for a follow up about 2 weeks s/p Left Distal Radius Fracture 07/05/24. She tripped over the coffee table landing on her left arm. At the time of her last visit she was placed in a splint due to swelling. She was seen in office about 1 week later for a splint change as it was loose from swelling decreasing, she was placed in a new volar wrist splint Pt states she does have some tingling sensations in her index,middle, and ring finger. [facility] Medical History Osteoporosis Surgical History History of appendectomy History of total right knee replacement Family History Mother Thyroid cancer Father Stroke Brother No problems noted. Sister No problems noted. Social History Household Members: Spouse and Children Household Members Other:: , adult daughter Alcohol intake: current Alcohol intake frequency: holidays/special occasions only Alcohol type: wine Patient Tobacco Use Status: Former Tobacco user Current occupational status: retired Current occupation: right hand dominant Review of Systems Const All systems reviewed & are unremarkable except as noted in HPI and below Physical Exam Vital Signs: BMI result Body Mass Index 26.4 Extrem Other: Patient is alert, oriented, and in no acute distress. Neuro: Normal sensation of the tips of all digits of the left hand at this time Vascular: Cap refill brisk Pain: Patient reports no tenderness to palpation of the left distal radius of the level of the fracture No anatomical snuffbox tenderness Minimal discomfort with pronation and supination of the left wrist ROM: Patient was able to make a closed fist and extend all digits of the left hand fully and without difficulty Skin: No lacerations or abrasions. General: Edema and ecchymosis have nearly resolved completely No erythema, or evidence of infection. Psych: Appears grossly normal Affect normal Attitude cooperative Office Procedures Casting/Splints 17249-Lbvl/Wrist Cast Application Procedure code (CPT) selection complete Results Reviewed Results Reviewed: X-rays obtained in the office today and independently reviewed by me, Nikita Talavera PA-C, demonstrate minimally displaced fracture of the left distal radius with slightly increased apex volar angulation compared to previous visit. Assessment & Plan Assessment & Plan (1) Fracture of left distal radius: Code(s): S52.502A - Unspecified fracture of the lower end of left radius, initial encounter for closed fracture Category: Medical Plan 1. Minimally displaced left distal radius fracture Date of injury 07/05/2024 Patient is educated about this injury Patient is educated about the typical recovery course The case was discussed with Dr. Betancourt, and a collaborative treatment plan was formed: At this time, I feel it was appropriate for the patient to continue with conservative management of this fracture, and the patient states that she would prefer this as well Patient was placed into a short-arm cast at this time Patient is educated on proper cast care and precautions Follow-up in 2 weeks with repeat x-rays for reassessment, anticipate cast placement at that time, sooner with any acute concerns Orders: Orders XR wrist LT w scaphoid Today M25.532 - Pain in left wrist Coding Level of Care Code Global (77838) Diagnoses Fracture of left distal radius S52.502A CPT Codes Casting - CPT: 58140-Wwct/Wrist Cast Application ([id number])
[2024-07-22 08:53] VITALS: BMI 26.4
== END 2024-07-22 09:42 | disposition home or self-care (01) ==
LOC: HO.HOS 08:41
PROVIDERS: PCP Internal Medicine
DX: S52.502A Unspecified fracture of the lower end of left radius, initial encounter for closed fracture (principal)
CPT/HCPCS: 29075; 99024

== ENCOUNTER → 2024-07-22 08:43 | Outpatient (BNV) | payer MEDICARE, SELFPAY | PROVIDERS: Visit Provider Radiology Diagnostic Radiology | DX: M25.532 Pain in left wrist (principal) | CPT/HCPCS: 73110 ==

== ENCOUNTER 2024-07-29 15:08 | Outpatient (AMB) | payer MEDICARE, SELFPAY ==
--- OUTSIDE RECORDS SUMMARY | 2024-07-29 15:10 | XMS_ITS ---
Author Organization [facility] [place] Address [address] [place] [address] Care Team Providers Care Environmental Engineering Assistant Name Role Phone Cholo Abdi MD Primary Care Provider Hilaria Tafoya Unavailable [phone] Allergies Allergen (clinical drug ingredient) Drug/Non Drug [...] 025 Encounters Encounter Location Date Provider Diagnosis [facility] [address] [place] [address] 05/17/2024 Hilaria Israel Fungal infection of nail [...] Details Follow Up: 2 Months, Reason: Provider Name:Roro Fleming liliya, 09/07/2024 02:45:00 PM, [address], [place], [address], Procedure Notes * Category Sub-Category Detail Notes [...] use of a nail nipper and/or dremel-type air grinder, to a more viable healthy nail [...] to maintain effectiveness in symptomatic relief - 79652 Progress Notes * Rona MATA PDOB: [birth year] (69 yo F)Acc No.[id number]:05/17/2024 Progress Note Patient:?ESPERANZA Rona P Provider:?Hilaria Israel DPM :1955???Age:69 Y???Sex:Female D ate:05/17/2024 Address:[address] [place] [address], [place], [id number] Pcp:Cholo Abdi MD Subjective: * Chief Complaints: [...] yes[Allergies Verified] Objective: * Vitals:?Ht:5ft3in, Wt:150, B NH:26.57, Shoe size:6, BP:120/60mm Hg, Ht-cm: 160.02 cm, [...] use of a nail nipper and/or dremel-type air grinder, to a more viable healthy nail [...] to maintain effectiveness in symptomatic relief - 00397.? * Procedure Codes:?57599 DEBRI DE NAIL, 6 OR MORE, Modifiers: XS * Follow Up:?2 Months * Images: * Sign off status: Completed true * Provider:?Hilaria Israel, DUNCAN Date:?01/2025 Generated for [place] vazquez/Thiago/Haider on:?07/29/2024 03:10 PM EDT History and Physical Notes * [...]
--- NOTE | 2024-07-29 15:44 | A.OFFVIS_ITS ---
Intake Visit Reasons: OV- L distal radius fx DOI 07/05/24 cast change Intake Note: Rona is a 69 year old female who present stoday for a follow up of her fracture of left distal radius, DOI: 07/05/24. Patient presents today for a cast change. No pain, just complaints of wet cast. Allergies meperidine [From Demerol] Allergy (Unknown, Verified 07/29/24 15:47) Nausea and Vomiting HPI HPI OV- L distal radius fx DOI 07/05/24 cast change: Details: Rona is a 69 year old female who present stoday for a follow up of her fracture of left distal radius, DOI: 07/05/24. Patient presents today for a cast change. No pain, just complaints of wet cast. [facility] Medical History (Updated 07/29/24 @ 15:48 by CATA Rubi) Fracture of left distal radius Osteoporosis Surgical History History of appendectomy History of total right knee replacement Family History Mother Thyroid cancer Father Stroke Brother No problems noted. Sister No problems noted. Social History Household Members: Spouse and Children Household Members Other:: , adult daughter Alcohol intake: current Alcohol intake frequency: holidays/special occasions only Alcohol type: wine Patient Tobacco Use Status: Former Tobacco user Current occupational status: retired Current occupation: right hand dominant Review of Systems Const All systems reviewed & are unremarkable except as noted in HPI and below Physical Exam Extrem Other: Patient is alert, oriented, and in no acute distress. Neuro: Normal sensation of the tips of all digits of the left hand at this time Vascular: Cap refill brisk Skin: No lacerations or abrasions. No evidence of maceration or skin breakdown General: Edema and ecchymosis have nearly resolved completely No erythema, or evidence of infection. Psych: Appears grossly normal Affect normal Attitude cooperative Office Procedures Casting/Splints 21096-Anlo/Wrist Cast Application Procedure code (CPT) selection complete Assessment & Plan Assessment & Plan (1) Fracture of left distal radius: Code(s): S52.502A - Unspecified fracture of the lower end of left radius, initial encounter for closed fracture Category: Medical Plan Cast changed in the office today Patient is educated on proper cast care and precautions Follow-up for previously scheduled appointment with me next week, sooner with any acute concerns Coding Level of Care Code Global (47473) Diagnoses Fracture of left distal radius S52.502A CPT Codes Casting - CPT: 34608-Adsn/Wrist Cast Application ([id number])
== END 2024-07-29 15:38 | disposition home or self-care (01) ==
LOC: HO.HOS 15:09
DX: S52.502A Unspecified fracture of the lower end of left radius, initial encounter for closed fracture (principal)
CPT/HCPCS: 29085; 99024

== ENCOUNTER → 2024-07-29 15:08 | Outpatient (BNVA) | payer MEDICARE, SELFPAY | DX: S52.502D Unspecified fracture of the lower end of left radius, subsequent encounter for closed fracture with routine healing (principal); X58.XXXD Exposure to other specified factors, subsequent encounter | CPT/HCPCS: 29085; 99212 ==

== ENCOUNTER 2024-08-03 07:59 | Outpatient (AMB) | payer MEDICARE, SELFPAY ==
--- OUTSIDE RECORDS SUMMARY | 2024-08-03 08:01 | XMS_ITS ---
Author Organization [facility] [place] Address [address] [place] [address] Care Team Providers Care Stitcher Operator Name Role Phone Cholo Abdi MD Primary Care Provider Hilaria Tafoya Unavailable [phone] Allergies Allergen (clinical drug ingredient) Drug/Non Drug [...] Date Provider Diagnosis [facility] [address] [place] [address] 05/17/2024 Hilaria Israel Fungal infection of nail [...] Name:Roro Fleming liliya, 09/07/2024 02:45:00 PM, [address] [facility], [place], [phone], Procedure Notes * Category Sub-Category Detail Notes [...] use of a nail nipper and/or dremel-type saw grinder, to a more viable healthy nail [...] to maintain effectiveness in symptomatic relief - 27182 Progress Notes * Rona MATA PDOB: [birth year] (69 yo F)Acc No.[id number]:05/17/2024 Progress Note Patient:?ESPERANZA Rona P Provider:?Hilaria Israel DPM :1955???Age:69 Y???Sex:Female D ate:05/17/2024 Address:[address] [place] [address], [place], [id number] Pcp:Cholo Abdi MD Subjective: * Chief Complaints: [...] yes[Allergies Verified] Objective: * Vitals:?Ht:5ft3in, Wt:150, B OK:26.57, Shoe size:6, BP:120/60mm Hg, Ht-cm: 160.02 cm, [...] use of a nail nipper and/or dremel-type saw grinder, to a more viable healthy nail [...] to maintain effectiveness in symptomatic relief - 72884.? * Procedure Codes:?34842 DEBRI DE NAIL, 6 OR MORE, Modifiers: XS * Follow Up:?2 Months * Images: * Sign off status: Completed true * Provider:?Hilaria Israel, DUNCAN Date:?01/2025 Generated for Franklin vazquez/Thiago/Haider on:?08/03/2024 08:01 AM EDT History and Physical Notes * [...]
[2024-08-03 08:09] VITALS: BMI 26.4
--- NOTE | 2024-08-03 08:09 | A.OFFVIS_ITS ---
Vital Signs 08/03/24 08:09 Height 5 ft 4 in Weight 154 lb BMI 26.4 Intake Visit Reasons: OV- L distal radius fx DOI 07/05/24 Intake Note: Rona is a 69 year old right hand dominant female who presents today for a follow up s/p Left Distal Radius Fracture 07/05/24. She tripped over the coffee table landing on her left arm. At her last visit she was placed in a short arm c ast. Cast off and XR updated today in office. Patient reports that she has been having numbness in the thumb as well as some pain along the wrist. She is taking Advil which is helping. Allergies meperidine [From Demerol] Allergy (Unknown, Verified 08/03/24 08:17) Nausea and Vomiting HPI HPI OV- L distal radius fx DOI 07/05/24: Details: Rona is a 69 year old right hand dominant female who presents today for a follow up s/p Left Distal Radius Fracture 07/05/24. She tripped over the coffee table landing on her left arm. At her last visit she was placed in a short arm cast. Cast off and XR updated today in office. Patient reports that she has been having numbness in the thumb as well as some pain along the wrist. She is taking Advil which is helping. [facility] Medical History Fracture of left distal radius Osteoporosis Surgical History History of appendectomy History of total right knee replacement Family History Mother Thyroid cancer Father Stroke Brother No problems noted. Sister No problems noted. Social History Household Members: Spouse and Children Household Members Other:: , adult daughter Alcohol intake: current Alcohol intake frequency: holidays/special occasions only Alcohol type: wine Patient Tobacco Use Status: Former Tobacco user Current occupational status: retired Current occupation: right hand dominant Physical Exam Vital Signs: BMI result Body Mass Index 26.4 Assessment & Plan Assessment & Plan (1) Fracture of left distal radius: Code(s): S52.502A - Unspecified fracture of the lower end of left radius, initial encounter for closed fracture Category: Medical Plan History of Present Illness The patient is a 69-year-old female presenting with a follow-up for her left wrist fracture and evaluation of numbness and tingling in her left hand. Her left wrist fracture was identified previously, and she has been in a cast for about one month. Recently, she reported numbness and tingling in the left hand, specifically in the thumb, starting three to four days ago. She describes the sensation as similar to a foot falling asleep. There is no reported pain on palpation, but she experiences discomfort and shooting pain into the forearm during wrist movement. Current imaging shows good bony healing without further displacement. The numbness and tingling are being monitored for possible nerve involvement, with further diagnostic testing considered if symptoms persist beyond four weeks. Review of Systems - Neurological: Reports numbness and tingling in left thumb. Denies any other neurological symptoms. - Musculoskeletal: Reports stiffness in left wrist, especially with motion. Denies pain on palpation of the wrist. Systems reviewed and are negative except as per HPI and below Physical Exam - Musculoskeletal- Left wrist demonstrates no tenderness upon palpation. No swelling noted. Patient exhibits limited range of motion, With flexion to approximately 40 degrees and extension to approximately 20 degrees past neutral. Patient reports minor discomfort with the extreme of flexion in the dorsal wrist radiating down to the forearm. numbness along with dorsal aspect of the left thumb Results - Imaging: X-rays show evidence of good bony healing in the left wrist with no further displacement of the fracture. Plan The patient will transition from a cast to a Velcro wrist splint for daytime activities to support healing and increase range of motion in the left wrist. Gentle exercises are recommended to address stiffness, with a weight limit of two pounds on the affected hand for the next four weeks. Monitoring of the numbness and tingling in the left thumb is necessary, with potential nerve conduction studies if symptoms persist. Referral to occupational therapy is provided to improve wrist range of motion, and a follow-up is planned in four weeks. Patient was informed and verbally consented to the use of an ambient scribe for clinic note documentation during this visit. Discussion Notes I discussed with the patient the current status of her left wrist fracture, highlighting the positive healing observed in her recent x-rays. I explained the transition from a cast to a Velcro wrist splint, emphasizing the importance of supporting her wrist during activities while working on gentle range of motion exercises to alleviate stiffness. We discussed the recent onset of numbness and tingling in her left thumb, which could indicate Carpal Tunnel Syndrome. I informed the patient that further diagnostic tests, such as EMG and nerve conduction studies, would be considered if symptoms continue for more than four weeks, but it is not currently necessary. I referred her to occupational therapy to assist in improving wrist mobility. The patient was advised to limit lifting to two pounds with the affected hand and was informed of the follow-up plan in four weeks. She expressed understanding and agreed to the plan outlined. Patient Instructions - Wear the Velcro wrist splint during daytime activities. - Remove the splint when resting, showering, or sleeping. - Perform gentle range of motion exercises as instructed. - Do not lift more than two pounds with the left hand. - Monitor for changes in numbness and tingling in the left hand. - Attend occupational therapy sessions as scheduled. - Return for a follow-up appointment in four weeks. - Seek care if there is increased pain, swelling, or new symptoms. Orders: Orders XR wrist LT min 3V Today M25.532 - Pain in left wrist OT Evaluation and Treatment Today S52.502A - Unspecified fracture of the lower end of left radius, initial encounter for closed fracture Coding Level of Care Code Global (52135) Diagnoses Fracture of left distal radius S52.502A
== END 2024-08-03 08:42 | disposition home or self-care (01) ==
LOC: HO.HOS 07:59
PROVIDERS: PCP Internal Medicine
DX: S52.502A Unspecified fracture of the lower end of left radius, initial encounter for closed fracture (principal)
CPT/HCPCS: 99024

== ENCOUNTER 2024-08-03 07:59 | Outpatient (REF) | payer MEDICARE, SELFPAY ==
--- NOTE | ~2024-08-03 | XR_ITS ---
EXAMINATION: XR WRIST, LEFT CLINICAL INFORMATION: M25.532 - Pain in left wrist COMPARISON: Numerous priors, most recently 07/22/2024, and dating back to 07/07/2024. TECHNIQUE: PA, lateral, and oblique views of the left wrist. FINDINGS: There is diffuse osteopenia. Redemonstration of a transverse fracture of the distal radius with mild impaction, stable in alignment. Increasing sclerosis surrounding the fracture margins suggesting continued healing. 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 Anatomic alignment. Normal appearing soft tissues. XR/XR wrist LT min 3V IMPRESSION: Osteopenia. Continued healing of nondisplaced transverse fracture of the distal radial metaphysis. Electronically signed by: Fidel Hebert MD 08/03/2024 12:10 PM EDT
== END 2024-08-03 08:00 | disposition home or self-care (01) ==
LOC: HO.HOSX 07:59
PROVIDERS: PCP Internal Medicine
DX: S52.502A Unspecified fracture of the lower end of left radius, initial encounter for closed fracture (principal); M25.532 Pain in left wrist
CPT/HCPCS: 73110; 99212

== ENCOUNTER → 2024-08-03 08:02 | Outpatient (BNV) | payer MEDICARE, SELFPAY | PROVIDERS: PCP Internal Medicine; Visit Provider Radiology Diagnostic Radiology | DX: M85.841 Other specified disorders of bone density and structure, right hand (principal) | CPT/HCPCS: 73110 ==

== ENCOUNTER 2024-08-25 07:25 | Outpatient (REF) | payer MEDICARE, SELFPAY ==
--- NOTE | ~2024-08-25 | XR_ITS ---
EXAMINATION: XR WRIST, LEFT CLINICAL INFORMATION: M25.532 - Pain in left wrist COMPARISON: August 03, 2024. TECHNIQUE: PA, lateral, and oblique views of the left wrist. FINDINGS: Sclerosis along the transversely oriented fracture through the distal metaphysis/epiphysis of the radius resulting in mild dorsal angulation. Degenerative changes in the first carpometacarpal joint. Osteopenia versus osteoporosis. XR/XR wrist LT min 3V IMPRESSION: Minimal healing with persistent lucency and mild dorsal angulation. Concerning for nonunion fracture Electronically signed by: Jose E Hickman MD 08/25/2024 12:19 PM EDT
--- OUTSIDE RECORDS SUMMARY | 2024-08-25 07:27 | XMS_ITS | Patient Health Record ---
Author Organization Cholo Abdi MD Address [address] [place], [place] [id number] Care Team Providers Care Department Secretary Name Role Phone Cholo Abdi Primary Care Provider Allergies No Known Allergies Results Component Value Reference Range Notes Complete Blood Count Auto Di ff Reviewed date:09/08/2023 12:54:23 PM Interpretation: Performing Lab:[facility], [address] [place] [phone] Notes/Report: White Blood Count 6.7 4.8-10.8 X10*3/uL [...] Panel Reviewed date:09/08/2023 02:56:13 PM Interpretation: Performing Lab:[address] [address] Notes/Report: Triglycerides 106 <150 mg/dL Desirable Triglyceride: [...] Total Reviewed date:09/08/2023 02:56:02 PM Interpretation: Performing Lab:[address] [place] [address] Notes/Report: Vitamin D 25-OH Total 31.6 >30 [...] Random Reviewed date:09/08/2023 04:20:33 PM Interpretation: Performing Lab:[address] [address] Notes/Report: Creatinine Urine 112.55 Microalbumin Urine 9.0 Microalbum/Creatinine Ratio Ur 7.9 <30 ug/mg cr Albumin/Creatinine Ratio Reference Ranges: Normal: < 30 ug/mg creatinine Microalbuminuria: 30 - 300 ug/mg creatinine Clinical Albuminuria: > 300 ug/mg creatinine Hemoglobin A1c Reviewed date:09/08/2023 12:38:21 PM Interpretation: Performing Lab:[facility], [address] [place] [phone] Notes/Report: Hemoglobin A1c % 5.5 <6.0 % [...] average glucose, using the formula of the B3S-Zcyswuy Average Glucose study (ADAG), Diabetes Care, Vol.31,#8, Oct. 2007 UA ClnCatch+Micro w/rflx Cul t Reviewed date:09/08/2023 02:55:52 PM Interpretation: Performing Lab:[facility], [address] [place] [phone] Notes/Report: Urine, Clean Catch Color Urine Yellow Appearance Urine Cloudy PH 6.0 5.0-9.0 Glucose Urine UA Negative Negative mg/dL Urine Blood Negative Negative Specific Bath - Urine 1.020 1.005-1.025 Urine Protein Negative Neg-Trace mg/dL Urine Ketones Negative Negative mg/dL Nitrite Urine Negative Negative Leukocyte Esterase Urine Large (3+) Negative RBC Urine 0-2 0-2 /HPF WBC Urine 21-50 0-5 /HPF Squamous Epithelial Cell Urine 6-10 0-2 /HPF Bacteria Urine 2+ None Seen Hyaline Casts Urine 0-2 0-2 /LPF Liver Panel Reviewed date:12/04/2023 01:43:03 PM Interpretation: Performing Lab:[facility], [address] [place] [address] Notes/Report: Bilirubin Total 0.4 0.0-1.0 mg/dL Bilirubin Direct 0.2 0.0-0.5 mg/dL Aspartate Amino Transferase 32 5-31 U/L Alanine Aminotransferase 46 0-31 U/L Total Protein 6.9 6.5-8.0 g/dL Albumin Level 3.9 3.5-5.0 g/dL Alkaline Phosphatase 119 39-117 U/L Lipid Panel Reviewed date:12/04/2023 01:42:45 PM Interpretation: Performing Lab:[facility], [address] [place] [address] Notes/Report: Triglycerides 67 <150 mg/dL Desirable Triglyceride: [...] Panel Reviewed date:02/08/2024 05:21:38 PM Interpretation: Performing Lab:[facility], [address] [place] [address] Notes/Report: Bilirubin Total 0.4 0.0-1.0 mg/dL Bilirubin Direct 0.2 0.0-0.5 mg/dL Aspartate Amino Transferase 26 5-31 U/L Alanine Aminotransferase 19 0-31 U/L Total Protein 6.8 6.5-8.0 g/dL Albumin Level 3.9 3.5-5.0 g/dL Alkaline Phosphatase 106 39-117 U/L XR hand LT min 3V Reviewed date:07/08/2024 12:47:48 PM Interpretation:referral entered Performing Lab: Notes/Report: [address] [address] XRay Report Signed Patient: Rona Mata MR#: [id number] : 1955 Acct:[id number] Age/Sex: 69 / F ADM Date: 07/07/24 Loc: HO.TIMMY Attending Dr: Cholo Abdi MD Ordering Physician: Cholo Abdi MD Date of Service: 07/07/24 Procedure(s): XR hand LT min 3V Accession Number(s): [id number] cc: Cholo Abdi MD CLINICAL HISTORY: ecchymosis [...] in OV> 07/07/241652 DD/ 51 TD/TT: 07/07/241651 Special Education Teaching Assistant: [place] [address] XRay Report Signed Patient: Sammy Mata MR#: [id number] : 1955 Acct:[id number] Age/Sex: 69 / F ADM Date: 07/07/24 Loc: HOPurviXRAY Attending Dr: Cholo Abdi MD Ordering Physician: Cholo Abdi MD Date of Service: 07/07/24 Procedure(s): XR sierra d LT min 3V Accession Number(s): [id number] cc: Cholo Abdi MD CLINICAL HISTORY: ecchymosis [...] in OV> 07/07/241652 DD/ 51 TD/TT: 07/07/241651 Special Education Teaching Assistant: XR wrist LT min 3V Reviewed date:07/08/2024 12:47:09 PM Interpretation:referral entered Performing Lab: Notes/Report: [address] [address] XRay Report Signed Patient: Rona Mata MR#: [id number] : 1955 Acct:[id number] Age/Sex: 69 / F ADM Date: 07/07/24 Loc: CAMILLA Attending Dr: Cholo Abdi MD Ordering Physician: Cholo Abdi MD Date of Service: 07/07/24 Procedure(s): XR wrist LT min 3V Accession Number(s): [id number] cc: Cholo Abdi MD CLINICAL HISTORY: Ecchymosis [...] in OV> 07/07/241654 DD/ 53 TD/TT: 07/07/241653 Special Education Teaching Assistant: [address] [address] XRay Report Signed Patient: Sammy Mata MR#: [id number] : 1955 Acct:[id number] Age/Sex: 69 / F ADM Date: 07/07/24 Loc: HO.XRAY Attending Dr: Cholo Abdi MD Ordering Physician: Cholo Adbi MD Date of Service: 07/07/24 Procedure(s): XR wri st LT min 3V Accession Number(s): [id number] cc: Cholo Abdi MD CLINICAL HISTORY: Ecchymosis [...] in OV> 07/07/241654 DD/ 53 TD/TT: 07/07/241653 Special Education Teaching Assistant: Jodi Leon Panel Reviewed date:09/08/2023 04:27:03 PM Interpretation: Performing Lab:[facility], [address] [place] [address] Notes/Report: Sodium 142 135-145 mmol/L Potassium 4.4 3.3-5.1 mmol/L Chloride 109 96-108 mmol/L Carbon Dioxide 26 22-29 mmol/L Anion Gap 11 12-20 Blood Urea Nitrogen 16 9-16 mg/dL Creatinine 0.76 0.5-1.4 mg/dL Estimated Glomerular Filt Rate > 60 NOTE: For -Ivorian individuals, multiply the result by 1.210. Chronic [...] Gold Reviewed date:09/08/2023 12:34:06 PM Interpretation: Performing Lab:[facility], [address] [place] [phone] Notes/Report: Hold Gold See Note Specimen held untested for 24 hours; Call to request Chemistry testing. Urine Culture Reviewed date:09/10/2023 03:05:05 PM Interpretation: Performing Lab:[facility], [address] [place] [address] Notes/Report: Urine Culture No growth. US extremity nonvascular Reviewed date:10/16/2023 09:42:26 AM Interpretation: Performing Lab: Notes/Report: [address] [address] Ultrasound Report Signed Patient: Rona Mata MR#: [id number] : 1955 Acct:[id number] Age/Sex: 68 / F ADM Date: 09/29/23 Loc: HO.US Attending Dr: Cholo Abdi MD Ordering Physician: Cholo Abdi MD Date of Service: 09/29/23 Procedure(s): US extremity nonvascular Accession Number(s): [id number] cc: Cholo Abdi MD EXAMINATION: US EXTREMITY, [...] MD in OV> 10/15/232132 DD/ 1350 TD/TT: Special Education Teaching Assistant: [place] [address] Ultrasound Report Signed Patient: Sammy Mata MR#: [id number] : 1955 Acct:[id number] Age/Sex: 68 / F ADM Date: 09/29/23 Loc: HO.US Attending Dr: Cholo Abdi MD Ordering Physician: Cholo Abdi MD Date of Service: 09/29/23 Procedure(s): US extremity nonvascular Accession Number(s): [id number] cc: Cholo Abdi MD EXAMINATION: US EXTREMITY, [...] MD in OV> 10/15/232132 DD/ 1350 TD/TT: Special Education Teaching Assistant: SS XR wrist LT min 3V Reviewed date:07/08/2024 05:01:40 PM Interpretation: Performing Lab: Notes/Report: [facility] [address] [place] [address] XRay Report Signed Patient: Rona Mata MR#: [id number] : 1955 Acct:[id number] Age/Sex: 69 / F ADM Date: 07/08/24 Loc: DAINA Attending Dr: Nikita ROSS Ordering Physician: Nikita Talavera Date of Service: 07/08/24 Procedure(s): XR wrist LT min 3V Accession Number(s): [id number] cc: Nikita Talavera; Cholo Abdi MD EXAMINATION: [...] 07/08/24 1223 DD/ 1006 TD/TT: 07/08/24 1010 Special Education Teaching Assistant: [facility] [address] [place] [address] XRay Report Signed Patient: Sammy Mata MR#: [id number] : 1955 Acct:[id number] Age/Sex: 69 / F ADM Date: 07/08/24 Loc: DAINA Attending Dr: Nikita ROSS Ordering Physician: Nikita Talavera Date of Service: 07/08/24 Procedure(s): XR wri st LT min 3V Accession Number(s): [id number] cc: Nikita Talavera ; Cholo Abdi MD [...] 07/08/24 1223 DD/ 1006 TD/TT: 07/08/24 1010 Special Education Teaching Assistant: XR wrist LT min 3V Reviewed date:08/04/2024 04:26:45 PM Interpretation: Performing Lab: Notes/Report: [facility] [address] [place] [address] [address] [place] [address] XRay Report Signed Patient: Rona Mata MR#: [id number] : 1955 Acct:[id number] Age/Sex: 69 / F ADM Date: 08/03/24 Loc: HO.HOSX Attending Dr: Nikita ROSS Ordering Physician: Nikita Talavera Date of Service: 08/03/24 Procedure(s): XR wrist LT min 3V Accession Number(s): [id number] cc: Nikita Talavera; Cholo Abdi MD EXAMINATION: XR WRIST, LEFT CLINICAL INFORMATION: M25.532 - Pain in left wrist COMPARISON: Numerous priors, most recently 07/22/2024, and dating back to 07/07/2024. TECHNIQUE: PA, lateral, and oblique views of the left wrist. FINDINGS: There is diffuse osteopenia. Redemonstration of a transverse fracture of the distal radius with mild impaction, stable in alignment. Increasing sclerosis surrounding the fracture margins suggesting continued healing. 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 Anatomic alignment. Normal appearing soft tissues. XR/XR wrist LT min 3V IMPRESSION: Osteopenia. Continued healing of nondisplaced transverse fracture of the distal radial metaphysis. Electronically signed by: Fidel Hebert MD 08/03/2024 12:10 PM EDT RP Dictated By: Fidel Hebert MD Signed By: <Electronically signed by Fidel Hebert MD in OV> 08/03/24 1210 DD/ 0802 TD/TT: 08/03/24 0812 Special Education Teaching Assistant: [place] [facility] [address] [place] [address] XRay Report Signed Patient: Sammy Mata MR#: [id number] : 1955 Acct:[id number] Age/Sex: 69 / F ADM Date: 08/03/24 Loc: HOJEFERSON Attending Dr: Nikita ROSS Ordering Physician: Nikita Talavera Date of Service: 08/03/24 Procedure(s): XR wri st LT min 3V Accession Number(s): [id number] cc: Nikita Talavera ; Cholo Abdi MD EXAMINATION: XR WRIST, LEFT CLINICAL INFORMATION: M25.532 - Pain in le ft wrist COMPARISON: Numerous priors, mos t recently 07/22/2024, and dating back to 07/07/2024. TECHNIQUE: PA, lateral, and oblique views of the left wrist. FINDINGS: There is diffuse osteopenia. Redemonstration of a transverse fracture of the distal radius with mild impaction, stable in alignment. Increasing sclerosis surrounding the fracture margins suggesting continued healing. 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 Anatomic alignment. Normal appearing sof t tissues. XR/XR wrist LT min 3V IMPRESSION: Osteopenia. Continue d healing of nondisplaced transverse fracture of the distal radial metaphysis. Electronically denise d by: Fidel Hebert MD 08/03/2024 12:10 PM EDT RP Dictated By: Fidel Hebert MD Signed By: <Electronically signed by Fidel Hebert MD in OV> 08/03/24 1210 DD/ 0802 TD/TT: 08/03/24 0812 Special Education Teaching Assistant: Reason For Referral Reason Ecchymosis of [...] Vaccine Unknown 07/18/2020 Administered Stew Mathias at [employer] [facility] [employer] Influenza High Dose IM Intramuscular 11/30/2020 Administer [...] Problem Status W/U Status Risk Notes Problem 25898361 Vitamin D deficiency (E55.9) Active confirmed Problem 576299290 Osteopenia (M85.80) Active confirmed Problem Age related osteoporosis (M81.0) Active confirmed Problem 03031340 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 difficile diarrhea (A04.72) Active confirmed Problem 32380959 Multiple subsegmental pulmonary emboli without acute cor pulmonale (I26.94) Active confirmed Problem 3678178610131 Status post total right knee replacement (Z96.651) Active confirmed Vital Signs Blood pressure diastolic 70 mm Hg 07/14/2024 Height 64 in 07/14/2024 Blood pressure systolic 132 mm Hg 07/14/2024 Weight 149 lbs 07/14/2024 BMI 25.57 kg/m2 07/14/2024 Encounters Encounter Location Date Provider Diagnosis Cholo Abdi MD [address] [place], [place] [phone] 09/08/2023 Cholo Abdi Vitamin D deficiency E55.9 ; Elevated LDL cholesterol level E78.00 ; Prediabetes R73.03 and CAD (coronary artery disease) I25.10 Cholo Abdi MD [address] [place] [id number] 12/04/2023 Cholo Abdi Elevated LDL cholesterol level E78.00 ; CAD (coronary artery disease) I25.10 and Encounter for immunization Z23 Cholo Abdi MD [address] [place] [id number] 02/08/2024 Cholo Abdi CAD (coronary artery disease) I25.10 Cholo Abdi MD [address] [place] [id number] 09/17/2023 Cholo Abdi Elevated LDL cholesterol level E78.00 ; Vitamin D deficiency E55.9 ; CAD (coronary artery disease) I25.10 ; Soft tissue mass M79.89 ; Prediabetes R73.03 and Encounter for screening for depression Z13.31 Cholo Abdi MD [address] [place] [id number] 12/11/2023 Cholo Abdi Cervical disc diseas e M50.90 ; CAD (coronary artery disease) I25.10 and Multiple subsegmental pulmonary emboli without acute cor pulmonale I26.94 Cholo Abdi MD [address] [place] [id number] 06/10/2024 Cholo Abdi Arthritis of knee M17.10 ; Multiple subsegmental pulmonary emboli without acute cor pulmonale I26.94 and CAD (coronary artery disease) I25.10 Cholo Abdi MD [address] [place] [id number] 07/07/2024 Cholo Abdi Ecchymosis of forear m R58 and Facial injury, initial encounter S09.93XA Cholo Abdi MD [address] [place] [id number] 07/14/2024 Cholo Abdi Hematoma T14.8XXA an d [...] R58) pending diagnostic testing, will refer to [facility] ortho. if they can't [...] mass (ICD-10 - M79.89) order faxed to [facility] CS dept, pending diagnostic [...] Provider Name:Cholo Brown ier, 09/12/2024 07:45:00 AM, [address] [place] [address], [address], [phone], Provider Name:Cholo Brown ier, 09/19/2024 09:30:00 AM, [address] [place] [address], [address], [place], [place], [phone], Insurance Providers Payer Name Payer Address Payer Phone Subscriber Number Group Number Insured Name Patient Relationship to Insured Coverage Start Date Coverage End Date [employer] [address] [place] [address] [id number] RONA MATA Self - patient is the insured 9 [employer] [address] [place], [place] [id number] RONA MATA Self - patient is the insured Medical (General) History Medical History History ICD Code discussed, 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 cologuard negative 09/25/22
== END 2024-08-25 07:26 | disposition home or self-care (01) ==
LOC: HO.HOSX 07:25
DX: M25.532 Pain in left wrist (principal); S52.502A Unspecified fracture of the lower end of left radius, initial encounter for closed fracture; X58.XXXA Exposure to other specified factors, initial encounter; Y93.9 Activity, unspecified; Y92.9 Unspecified place or not applicable; Y99.9 Unspecified external cause status
CPT/HCPCS: 73110; 99212

== ENCOUNTER 2024-08-25 11:42 | Outpatient (AMB) | payer MEDICARE, SELFPAY ==
--- NOTE | 2024-08-25 11:43 | MHC.OFFVIS ---
Vital Signs 08/25/24 11:45 Height 5 ft 3.5 in Weight 153 lb BMI 26.7 Intake Visit Reasons: OV: left distal radius fx DOI 07/05/24-w/xrays Intake Note: Rona is a 69 year old right hand dominant female who presents today for a follow up visit for her left distal radius fracture, DOI 07/05/24. Patient reports she has been going to therapy and reports noticing an improvement. She states she is doing mobility exercises with OT and at home during her free time. She is having numbness that comes and goes in her left thumb. With over usage of her hand she notices pain radiates from the finger right up to the elbow. She is able to make a full closed fist. Allergies meperidine (From Demerol) Allergy (Unknown, Verified 08/25/24 11:45) Nausea and Vomiting HPI HPI OV: left distal radius fx DOI 07/05/24-w/xrays: Details: Rona is a 69 year old right hand dominant female who presents today for a follow up visit for her left distal radius fracture, DOI 07/05/24. Patient reports she has been going to therapy and reports noticing an improvement. She states she is doing mobility exercises with OT and at home during her free time. She is having numbness that comes and goes in her left thumb. With over usage of her hand she notices pain radiates from the finger into the wrist, denies any radiation into the elbow.. She is able to make a full closed fist. [facility] Medical History Fracture of left distal radius Osteoporosis Surgical History History of appendectomy History of total right knee replacement Family History Mother Thyroid cancer Father Stroke Brother No problems noted. Sister No problems noted. Social History Household Members: Spouse and Children Household Members Other:: , adult daughter Alcohol intake: current Alcohol intake frequency: holidays/special occasions only Alcohol type: wine Patient Tobacco Use Status: Former Tobacco user Current occupational status: retired Current occupation: right hand dominant Review of Systems Const All systems reviewed & are unremarkable except as noted in HPI and below Physical Exam Vital Signs: BMI result Body Mass Index 26.7 Extrem Other: Patient is alert, oriented, and in no acute distress. Neuro: Normal sensation of the tips of all digits of the left hand at this time Vascular: Cap refill brisk Pain: No tenderness to palpation about the fracture site in the left distal radius No pain with range of motion ROM: Patient is able to make a closed fist and extend all digits of the left hand fully and without difficulty Patient is able to flex the wrist to approximately 60 degrees, and extend to approximately 30-40 degrees at this time Skin: No lacerations or abrasions. No evidence of maceration or skin breakdown General: No edema or ecchymosis noted No erythema, or evidence of infection. Psych: Appears grossly normal Affect normal Attitude cooperative Results Reviewed Results Reviewed: X-rays obtained in the office today and independently reviewed by me, Nikita Talavera PA-C, demonstrate minimally displaced fracture of the left distal radius with evidence of good interval bony healing Assessment & Plan Assessment & Plan (1) Fracture of left distal radius: Code(s): S52.502A - Unspecified fracture of the lower end of left radius, initial encounter for closed fracture Category: Medical Plan 1. Left distal radius fracture Date of injury 07/05/2024 Patient appears to be recovering very well from her injury Patient is educated about the typical recovery course At this time, patient is cleared to come out of the Velcro wrist splint with lower risk daytime activities, should continue to wear the Velcro wrist splint in crowded or high-risk situations Patient understands this and is amenable to this plan Continue occupational therapy for range of motion and gentle strengthening of the left wrist Follow-up in 4-6 weeks for axqqm-pv-ndgpmf check, sooner with any acute concerns Orders: Orders XR wrist LT min 3V Today M25.532 - Pain in left wrist Coding Level of Care Code Global (89529) Diagnoses Fracture of left distal radius S52.502A
[2024-08-25 11:45] VITALS: BMI 26.7
== END 2024-08-25 12:12 | disposition home or self-care (01) ==
LOC: HO.HOS 11:42
PROVIDERS: PCP Internal Medicine
DX: S52.502A Unspecified fracture of the lower end of left radius, initial encounter for closed fracture (principal)
CPT/HCPCS: 99024

== ENCOUNTER → 2024-08-25 11:46 | Outpatient (BNV) | payer MEDICARE, SELFPAY | PROVIDERS: Visit Provider Radiology Diagnostic Radiology | DX: M18.12 Unilateral primary osteoarthritis of first carpometacarpal joint, left hand (principal) | CPT/HCPCS: 73110 ==

== ENCOUNTER 2024-09-12 10:39 | Outpatient (REF) | payer MEDICARE, SELFPAY ==
[2024-09-12 10:43] LABS: MANUAL DIFF FLAG NO
[2024-09-12 11:15] LABS: Hematocrit 41.4 % (37.0-47.0); Hemoglobin 14.2 g/dl (12.0-16.0); Imm Gran Abs Auto 0.03 X10*3/uL (0.00-0.03); Imm Gran Pct Auto 0.4 % (0.0-0.4); Lymphocytes Absolute Auto 2.2 X10*3/uL (1.2-4.9); Mean Corpuscular HGB Conc 34.3 g/dl (31.0-35.0); Mean Corpuscular Hemoglobin 32.2 pg (27.0-33.0); Mean Corpuscular Volume 93.9 fL (80.0-98.0); NRBC Abs Auto 0.000 X10*3/uL (0.0-0.012); NRBC Pct Auto 0.0 /100WBC (0.0-0.2); Platelet Count 292 X10*3/uL (160-400); Red Blood Count 4.41 X10*6/uL (4.20-5.50); White Blood Count 7.2 X10*3/uL (4.8-10.8)
[2024-09-12 11:24] LABS: Appearance Urine Clear; Glucose Urine UA Negative (Negative); Hemoglobin A1C 143.8060 umol/L; PH 6.0 (5.0-9.0); Specific Gravity - Urine 1.020 (1.005-1.025); Total Hemoglobin (HGBA1C) 3705.1900 umol/L; UMIC TRIGGER UACC YES
--- OUTSIDE RECORDS SUMMARY | 2024-09-12 11:34 | XMS_ITS | Patient Health Record ---
Author Organization Cholo Abdi MD Address [address] [place], [place] [id number] Care Team Providers Care Digital Media Director Name Role Phone Cholo Abdi Primary Care Provider Allergies No Known Allergies Results Component Value Reference Range Notes Liver Panel Reviewed date:12/04/2023 01:43:03 PM Interpretation: Performing Lab:[facility], [address] [place] [address] Notes/Report: Bilirubin Total 0.4 0.0-1.0 mg/dL Bilirubin Direct 0.2 0.0-0.5 mg/dL Aspartate Amino Transferase 32 5-31 U/L Alanine Aminotransferase 46 0-31 U/L Total Protein 6.9 6.5-8.0 g/dL Albumin Level 3.9 3.5-5.0 g/dL Alkaline Phosphatase 119 39-117 U/L Lipid Panel Reviewed date:12/04/2023 01:42:45 PM Interpretation: Performing Lab:[facility], [address] [place] [address] Notes/Report: Triglycerides 67 <150 mg/dL Desirable Triglyceride: [...] Panel Reviewed date:02/08/2024 05:21:38 PM Interpretation: Performing Lab:[facility], [address] [place] [id number] Notes/Report: Bilirubin Total 0.4 0.0-1.0 mg/dL Bilirubin Direct 0.2 0.0-0.5 mg/dL Aspartate Amino Transferase 26 5-31 U/L Alanine Aminotransferase 19 0-31 U/L Total Protein 6.8 6.5-8.0 g/dL Albumin Level 3.9 3.5-5.0 g/dL Alkaline Phosphatase 106 39-117 U/L Complete Blood Count Auto Di ff (Not yet reviewed by provider) Interpretation: Performing Lab:[facility], [address] [place] [phone] Notes/Report: White Blood Count 7.2 4.8-10.8 X10*3/uL Red Blood Count 4.41 4.20-5.50 X10*6/uL Hemoglobin 14.2 12.0-16.0 g/dl Hematocrit 41.4 37.0-47.0 % Mean Corpuscular Volume 93.9 80.0-98.0 fL Mean Corpuscular Hemoglobin 32.2 27.0-33.0 pg Mean Corpuscular HGB Conc 34.3 31.0-35.0 g/dl Red Cell Distribution Width 13.0 11.0-16.0 % Platelet Count 292 160-400 X10*3/uL Mean Platelet Volume 10.5 9.4-12.3 fL Neutrophils Percent Auto 54.6 45-73 % Imm Gran Pct Auto 0.4 0.0-0.4 % Lymphocytes Percent Auto 30.9 20-40 % Monocytes Percent Auto 8.8 2-11 % Eosinophils Percent Auto 4.6 0-4 % Basophils Percent Auto 0.7 0-2 % NRBC Pct Auto 0.0 0.0-0.2 /100WBC Neutrophils Absolute Auto 3.9 2.0-8.3 x10*3/uL Imm Gran Abs Auto 0.03 0.00-0.03 X10*3/uL Lymphocytes Absolute Auto 2.2 1.2-4.9 X10*3/uL Monocytes Absolute Auto 0.6 0.1-1.2 X10*3/uL Eosinophils Absolute Auto 0.3 0.0-0.4 X10*3/uL Basophils Absolute Auto 0.1 0.0-0.2 X10*3/uL NRBC Abs Auto 0.000 0.0-0.012 X10*3/uL Hemoglobin A1c (Not yet revi ewed by provider) Interpretation: Performing Lab:[address] [address] Notes/Report: Hemoglobin A1c % 5.7 <6.0 % Hemoglobin A1C Reference Range Adults: 4.8 - 6.0 % Non diabetic: < 6.0 % Goal: < 7.0 % Additional Action Suggested: > 8.0 % Note: Hemoglobin A1c results are invalid for patients with abnormal amounts of HbF. Blood transfusions may impact the HbA1c concentration in the patient sample. Estimated Average Glucose 117 eAG = Estimated average glucose which is %A1C expressed as average glucose, using the formula of the W4M-Fojplpr Average Glucose study (ADAG), Diabetes Care, Vol.31,#8, Oct. 2007 XR hand LT min 3V Reviewed date:07/08/2024 12:47:48 PM Interpretation:referral entered Performing Lab: Notes/Report: [address] [address] XRay Report Signed Patient: Rona Mata MR#: [id number] : 1955 Acct:[id number] Age/Sex: 69 / F ADM Date: 07/07/24 Loc: [facility] Attending Dr: Cholo Abdi MD Ordering Physician: Cholo Abdi MD Date of Service: 07/07/24 Procedure(s): XR hand LT min 3V Accession Number(s): [id number] cc: Cholo Abdi MD CLINICAL HISTORY: ecchymosis [...] in OV> 07/07/241652 DD/ 51 TD/TT: 07/07/241651 Railway Patrol Officer: [place] [address] XRay Report Signed Patient: Sammy Mata MR#: [id number] : 1955 Acct:[id number] Age/Sex: 69 / F ADM Date: 07/07/24 Loc: [facility] Attending Dr: Cholo Abdi MD Ordering Physician: Cholo Abdi MD Date of Service: 07/07/24 Procedure(s): XR sierra d LT min 3V Accession Number(s): [id number] cc: Cholo Abdi MD CLINICAL HISTORY: ecchymosis [...] in OV> 07/07/241652 DD/ 51 TD/TT: 07/07/241651 Railway Patrol Officer: XR wrist LT min 3V Reviewed date:07/08/2024 12:47:09 PM Interpretation:referral entered Performing Lab: Notes/Report: [address] [address] XRay Report Signed Patient: Rona Mata MR#: [id number] : 1955 Acct:[id number] Age/Sex: 69 / F ADM Date: 07/07/24 Loc: [facility] Attending Dr: Cholo Abdi MD Ordering Physician: Cholo Abdi MD Date of Service: 07/07/24 Procedure(s): XR wrist LT min 3V Accession Number(s): [id number] cc: Cholo Abdi MD CLINICAL HISTORY: Ecchymosis [...] in OV> 07/07/241654 DD/ 53 TD/TT: 07/07/241653 Railway Patrol Officer: [address] [address] XRay Report Signed Patient: Sammy Mata MR#: [id number] : 1955 Acct:[id number] Age/Sex: 69 / F ADM Date: 07/07/24 Loc: [facility] Attending Dr: Cholo Abdi MD Ordering Physician: Cholo Abdi MD Date of Service: 07/07/24 Procedure(s): XR wri st LT min 3V Accession Number(s): [id number] cc: Cholo Abdi MD CLINICAL HISTORY: Ecchymosis [...] in OV> 07/07/241654 DD/ 53 TD/TT: 07/07/241653 Railway Patrol Officer: US extremity nonvascular Reviewed date:10/16/2023 09:42:26 AM Interpretation: Performing Lab: Notes/Report: [address] [address] Ultrasound Report Signed Patient: Rona Mata MR#: [id number] : 1955 Acct:[id number] Age/Sex: 68 / F ADM Date: 09/29/23 Loc: .US Attending Dr: Cholo Abdi MD Ordering Physician: Cholo Abdi MD Date of Service: 09/29/23 Procedure(s): US extremity nonvascular Accession Number(s): [id number] cc: Cholo Abdi MD EXAMINATION: US EXTREMITY, [...] MD in OV> 10/15/232132 DD/ 1350 TD/TT: Railway Patrol Officer: TIBURCIO [address] [address] Ultrasound Report Signed Patient: Sammy Mata MR#: [id number] : 1955 Acct:[id number] Age/Sex: 68 / F ADM Date: 09/29/23 Loc: HO.US Attending Dr: Cholo Abdi MD Ordering Physician: Cholo Abdi MD Date of Service: 09/29/23 Procedure(s): US extremity nonvascular Accession Number(s): [id number] cc: Cholo Abdi MD EXAMINATION: US EXTREMITY, [...] MD in OV> 10/15/232132 DD/ 1350 TD/TT: Railway Patrol Officer: TIBURCIO XR wrist LT min 3V Reviewed date:07/08/2024 05:01:40 PM Interpretation: Performing Lab: Notes/Report: [facility] [address] [place] [address] XRay Report Signed Patient: Rona Mata MR#: [id number] : 1955 Acct:[id number] Age/Sex: 69 / F ADM Date: 07/08/24 Loc: HO.HOSX Attending Dr: Nikita ROSS Ordering Physician: Nikita Talavera Date of Service: 07/08/24 Procedure(s): XR wrist LT min 3V Accession Number(s): [id number] cc: Nikita Talavera; Cholo Abdi MD EXAMINATION: [...] 07/08/24 1223 DD/ 1006 TD/TT: 07/08/24 1010 Railway Patrol Officer: [facility] [address] [place] [address] XRay Report Signed Patient: Sammy Mata MR#: [id number] : 1955 Acct:[id number] Age/Sex: 69 / F ADM Date: 07/08/24 Loc: HO.BARBARAX Attending Dr: Nikita ROSS Ordering Physician: Nikita Talavera Date of Service: 07/08/24 Procedure(s): XR wri st LT min 3V Accession Number(s): [id number] cc: Nikita Talavera ; Cholo Abdi MD [...] 07/08/24 1223 DD/ 1006 TD/TT: 07/08/24 1010 Railway Patrol Officer: XR wrist LT min 3V Reviewed date:08/04/2024 04:26:45 PM Interpretation: Performing Lab: Notes/Report: [facility] [address] [place] [address] Drive [address] [place] [address] XRay Report Signed Patient: Rona Mata MR#: [id number] : 1955 Acct:[id number] Age/Sex: 69 / F ADM Date: 08/03/24 Loc: HO.HOSX Attending Dr: Nikita ROSS Ordering Physician: Nikita Talavera Date of Service: 08/03/24 Procedure(s): XR wrist LT min 3V Accession Number(s): [id number] cc: Nikita Talavera; Cholo Abdi MD EXAMINATION: [...] 08/03/24 1210 DD/ 0802 TD/TT: 08/03/24 0812 Railway Patrol Officer: [facility] [address] [place] [address] XRay Report Signed Patient: Sammy Mata MR#: [id number] : 1955 Acct:[id number] Age/Sex: 69 / F ADM Date: 08/03/24 Loc: HO.HOSX Attending Dr: Nikita ROSS Ordering Physician: Nikita Talavera Date of Service: 08/03/24 Procedure(s): XR wri st LT min 3V Accession Number(s): [id number] cc: Nikita Talavera ; Cholo Abdi MD [...] 08/03/24 1210 DD/ 0802 TD/TT: 08/03/24 0812 Railway Patrol Officer: Reason For Referral Reason Ecchymosis of forear [...] Vaccine Unknown 07/18/2020 Administered Stew Mathias at [employer] Influenza High Dose IM Intramuscular 11/30/2020 Administer [...] Problem Status W/U Status Risk Notes Problem 66890462 Vitamin D deficiency (E55.9) Active confirmed Problem 479932759 Osteopenia (M85.80) Active confirmed Problem Age related osteoporosis (65445801) Age related osteoporosis (M81.0) Active confirmed Problem 85457567 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 difficile diarrhea (A04.72) Active confirmed Problem 87051408 Multiple subsegmental pulmonary emboli without acute cor pulmonale (I26.94) Active confirmed Problem 1154453111479 Status post total right knee replacement (Z96.651) Active confirmed Vital Signs Blood pressure diastolic 70 mm Hg 07/14/2024 Height 64 in 07/14/2024 Blood pressure systolic 132 mm Hg 07/14/2024 Weight 149 lbs 07/14/2024 BMI 25.57 kg/m2 07/14/2024 Encounters Encounter Location Date Provider Diagnosis Cholo Abdi MD [address] [place] [id number] 12/04/2023 Cholo Abdi Elevated LDL cholesterol level E78.00 ; CAD (coronary artery disease) I25.10 and Encounter for immunization Z23 Cholo Abdi MD [address] [place] [id number] 02/08/2024 Cholo Abdi CAD (coronary artery disease) I25.10 Cholo Abdi MD [address] [place] [id number] 09/12/2024 Cholo Abdi Vitamin D deficiency E55.9 ; Prediabetes R73.03 and CAD (coronary artery disease) I25.10 Cholo Abdi MD [address] [place] [id number] 09/17/2023 Cholo Abdi Elevated LDL cholesterol level E78.00 ; Vitamin D deficiency E55.9 ; CAD (coronary artery disease) I25.10 ; Soft tissue mass M79.89 ; Prediabetes R73.03 and Encounter for screening for depression Z13.31 Cholo Abdi MD [address] [place] [id number] 12/11/2023 Cholo Abdi Cervical disc diseas e M50.90 ; CAD (coronary artery disease) I25.10 and Multiple subsegmental pulmonary emboli without acute cor pulmonale I26.94 Cholo Abdi MD [address] [place] [id number] 06/10/2024 Cholo Hoskinsardier Arthritis of knee M17.10 ; Multiple subsegmental pulmonary emboli without acute cor pulmonale I26.94 and CAD (coronary artery disease) I25.10 Cholo Abdi MD [address] [place] [id number] 07/07/2024 Cholo Abdi Ecchymosis of forear m R58 and Facial injury, initial encounter S09.93XA Cholo Abdi MD [address] [place] [address] [address] [place] [address] [id number] 07/14/2024 Cholo Abdi Hematoma T14.8XXA an d Shoulder injury S49.90XA Cholo Abdi MD [address] [place] [address] Drive [address] [place] [id number] 09/12/2024 Cholo Abdi Arthritis of knee M17.10 Assessments Encounter Date Diagnosis (ICD Code) Assessment Notes Treatment Notes Treatment Clinical Notes Section Notes 12/04/2023 Elevated LDL cholesterol level (ICD-10 - E78.00) 12/04/2023 CAD (coronary artery disease) (ICD-10 - I25.10) 02/08/2024 CAD (coronary artery disease) (ICD-10 - I25.10) 09/12/2024 Vitamin D deficiency (ICD-10 - E55.9) 09/17/2023 Elevated LDL cholesterol level (ICD-10 - [...] R58) pending diagnostic testing, will refer to [facility]. if they can't see her today/ x-ray orders given to patient 07/07/2024 Facial injury, initial encounter (ICD-10 - S09.93XA) just observe 07/14/2024 Hematoma (ICD-10 - T14.8XXA) use warm compresses and no other treatment needed 07/14/2024 Shoulder injury (ICD-10 - S49.90XA) to make sure she keeps range of motion 09/12/2024 Arthritis of knee (ICD-10 - M17.10) 12/04/2023 Encounter for immunization (ICD-10 - Z23) 09/12/2024 Prediabetes (ICD-10 - R73.03) 09/17/2023 CAD (coronary artery disease) (ICD-10 - I25.10) no symptoms and was minimal but will treat with statins 12/11/2023 Multiple subsegmental pulmonary emboli without acute cor pulmonale (ICD-10 - I26.94) if she had another knee done would suggest that she have a filter temporarily 06/10/2024 CAD (coronary artery disease) (ICD-10 - I25.10) not having any pains but needed a refill on ntg 09/12/2024 CAD (coronary artery disease) (ICD-10 - I25.10) 09/17/2023 Soft tissue mass (ICD-10 - M79.89) order faxed to [facility] CS dept, pending diagnostic testing 09/17/2023 Prediabetes (ICD-10 - R73.03) stable, no need for medication at s time 09/17/2023 Encounter for screening for depression (ICD-10 - Z13.31) negative screen Plan Of Treatment Pending Test Test Name Order Date Electrocardiogram (EKG) 04/04/2016 Electrocardiogram (EKG) 04/30/2018 Electrocardiogram (EKG) 03/16/2015 MAMMOGRAM DIGITAL BILATERAL SCREEN 10/05 MAMMOGRAM DIGITAL BILATERAL SCREEN 05/12 US SOFT TISSUE 09/22/2022 US SOFT TISSUE 09/17/2023 US ARM LT VENOUS DOPPLER 09/22/2022 US LEG BILATERAL VENOUS DOPPLER 12/01/19 21 Complete Blood Count Auto Diff 5 Comprehensive [place]. Panel Fast 5 Lipid Panel 09/12/2024 Vitamin D 25-OH Total 09/12/2024 Microalbumin, Random 09/12/2024 CA dobutamine stress w nancy 06/13/2021 XR DEXA axial skeleton 05/21/2020 CA stress test 05/28/2021 Hemoglobin A1c 09/12/2024 UA ClnCatch+Micro w/rflx Cult 09/12/2024 Next Appt Details Provider Name:Cholo Brown ier, 09/19/2024 09:30:00 AM, [address] [place] [address], [address], [place], [place], [phone], Insurance Providers Payer Name Payer Address Payer Phone Subscriber Number Group Number Insured Name Patient Relationship to Insured Coverage Start Date Coverage End Date MEDICARE [employer] [address] [place] [id number] RONA MATA Self - patient is the insured [employer] [address] [place], [place] [phone] [id number] RONA MATA Self - patient is the insured Medical (General) History Medical History History ICD Code discussed, [employer] & Mammo info to pt isabella so appt at [facility] colonoscopy done 06/16/2006, repeat in 10 years; Negative Cologuard 10/28/2018. cologuard negative 09/25/22
--- OUTSIDE RECORDS SUMMARY | 2024-09-12 11:34 | XMS_ITS | Patient Health Record ---
Author Organization [facility] Address [address] [place] [address] Care Team Providers Care Data Analysis Intern Name Role Phone Cholo Abdi MD Primary Care Provider Hilaria Tafoya Unavailable [phone] Roro Elizabeth Unavailable [phone] Allergies Allergen (clinical drug ingredient) Drug/Non Drug Allergy documented on EMR Reaction Allergy Type Onset Date Status meperidine Demerol vomiting Drug Allergy Active Reason For Referral No Information Medications Medication SIG (Take, Route, Frequency, Duration) Notes Start Date End Date Status Eliquis Not-Taking Ciclopirox Olamine 0.77 % 1 application to affected area Externally Twice a day; Duration: 30 days Active LamISIL 250 MG 1 tablet Orally Once a day; Duration: 30 days Not-Takin g Ibuprofen PRN Active Immunizations Vaccine Route Administration [...] 05/17/2024 Encounters Encounter Location Date Provider Diagnosis [address] [address] 09/18/2023 Hilaria Perica 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 ; Pain in right toe(s) M79.674 and Pain in left toe(s) M79.[address] [address] 12/02/2023 Hilaria Perica 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 ; Pain in right toe(s) M79.674 and Pain in left toe(s) M79.[address] [address] 02/23/2024 Hilaria Perica 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 ; Pain in right toe(s) M79.674 and Pain in left toe(s) M79.[address] [address] 05/17/2024 Hilaria Perica 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 ; Pain in right toe(s) M79.674 and Pain in left toe(s) M79.[address] [address] 09/06/2024 Hilaria Perica Assessments Encounter Date Diagnosis (ICD Code) Assessment [...] 07/18/2022 Next Appt Details Provider Name:Hilaria zimmerman, 09/13/2024 09:15:00 AM, [address] [place] [address], [phone], Insurance Providers Payer Name Payer Address Payer Phone Subscriber Number Group Number Insured Name Patient Relationship to Insured Coverage Start Date Coverage End Date Medicare [employer] [address] [place] [address] [id number] Rona Cooper Self - patient is the insured [facility] [address] [place] [address] [phone] [id number] Rona Cooper Self - patient is the insured Medical (General) History Medical History History ICD Code Back,Hip,and Knee pain Surgical History Surgery Date(Month/Year) Appendix 1968 Knee replacement Surgery - right knee
[2024-09-12 11:42] LABS: UACC Culture Trigger YES
[2024-09-12 13:01] LABS: Anion Gap 12 (12-20)
[2024-09-12 13:06] LABS: Alanine Aminotransferase 25 U/L (0-31); Albumin Level 4.1 g/dL (3.5-5.0); Alkaline Phosphatase 101 U/L (39-117); Aspartate Amino Transferase 26 U/L (5-31); Blood Urea Nitrogen 15 mg/dL (9-16); Calcium 8.9 mg/dL (8.4-10.2); Carbon Dioxide 23 mmol/L (22-29); Chloride 111 mmol/L (96-108); Cholesterol 157 mg/dL (<200); Estimated Glomerular Filt Rate > 60; HDL Cholesterol 53 mg/dL (>40); Potassium 3.9 mmol/L (3.3-5.1); Sodium 142 mmol/L (135-145); Total Protein 6.5 g/dL (6.5-8.0); Triglycerides 94 mg/dL (<150)
[2024-09-12 14:56] LABS: Microalbum/Creatinine Ratio Ur 6.0 ug/mg cr (<30)
== END 2024-09-12 10:40 | disposition home or self-care (01) ==
LOC: HO.LNP 10:39
PROVIDERS: Visit Provider Internal Medicine
DX: I25.10 Atherosclerotic heart disease of native coronary artery without angina pectoris (principal); E55.9 Vitamin D deficiency, unspecified; R73.03 Prediabetes
CPT/HCPCS: 80053; 80061; 81001; 82043; 82306; 82570; 83036; 85025; 87086

== ENCOUNTER 2024-09-26 08:00 | Outpatient (RCR) | payer MEDICARE, SELFPAY ==
--- NOTE | 2024-08-10 09:03 | MHC.OT.EP ---
[address] [phone] Occupational Therapy Plan of Care Patient Name: Rona Cooper Date of Evaluation: 08/10/24 Diagnosis: Left DRF Pain Location: Pain free at rest Sore at the end of the day Pain Score: 5 Pain Scale Used: Numeric (0 - 10) Aggravating Factors: General movements Alleviating Factors: Advil Assessment: 69 yo female tripped and fell, landing on her left wrist. X-ray shows 'transverse nondisplaced mildly impacted fracture of the distal radius metaphysis' and she was placed in cast until 08/03/24. On assessment today, she has prefab orthosis on and has good follow through w/ wear and joint protection. She has good digit range and able to make full fist, but has decreased wrist range w/ flex 25 degrees, ext 55 degrees and sup 65 degrees. I anticipate she will do well w/ course of OT with goal of full functional return w/ strength and range. Frequency and Duration: The patient will be seen 2x/wk for 6 weeks Short Term Goals: Ind w/ HEP Wrist flex 40 Wrist ext 60 Forearm sup 70 Correction Goals: Wean from orthosis QuickDASH score <40 pts Pt to report ease w/ moderate bimanual daily activities Wrist flex 60 degrees Treatment Plan: Therapeutic Exercise Therapeutic Activity Home Exercise Program Splinting Patient Education Desensitization/Sensory Re-ed Edema Control ADL Training Paraffin Fluidotherapy MHP Cold Packs Joint Mobilization Soft Tissue Mobilization Kinesiotaping Electronically Signed By: Kellie Noel OTR/Bladimir CHT Please Sign and return to therapist. Thank you once again for your referral.
--- NOTE | 2024-09-26 09:25 | MHC.OT.OP ---
[address] [phone] F: [phone] Occupational Therapy Progress Note Patient Name: Rona Cooper Diagnosis: Left DRF Date of Evaluation: 08/10/24 Treatments to Date: 5 Subjective: It feels good, I only get a pull on the other side (ulnar wrist) when I move it palm up and down Pain Score: 0 Pain Location: Pain free left wrist currently Objective Measures: Wrist AROM 60/50 -> 70/60 after heat and ROM Supination 80 after heat and ROM GG R 32 L 20 Status: Progressing Assessment: 12 weeks s/p injury, doing well w/ functional range and strength, some pain only w/ rotation movements. No functional deficits, still good follow through w/ HEP. Will trial home program this week, likely wean to self management. Short Term Goals: Ind w/ HEP (met) Wrist flex 40 (met) Wrist ext 60 (met) Forearm sup 70 (met) Penitentiary Goals: Wean from orthosis (met) QuickDASH score <40 pts Pt to report ease w/ moderate bimanual daily activities Wrist flex 60 degrees (met) Treatment Plan: Therapeutic Exercise Therapeutic Activity Home Exercise Program Splinting Patient Education Desensitization/Sensory Re-ed Edema Control ADL Training Paraffin Fluidotherapy MHP Cold Packs Joint Mobilization Soft Tissue Mobilization Kinesiotaping Electronically Signed By: CLAYTON Velazquez/Bladimir EVERETTT Reviewed/agree with student documentation: Therapist:
--- NOTE | 2024-10-19 08:36 | MHC.OT.DC ---
[facility] Office [address] [phone] F: [phone] F: [phone] Occupational Therapy Discharge Note Patient Name: Rona Cooper Provider: Nikita Talavera PA-C Diagnosis: Left DRF Date of Surgery: Date of Evaluation: 08/10/24 Date of Discharge: 10/19/24 Treatments to Date: 5 Cancellations to Date: No Shows to Date: Discharge Status: Achieved Goals Improved Function Independent with HEP Discharge Summary: 69 yo female w/ left DRF, last seen several weeks ago and has been doing well. She is Ind w/ home program and goals met. No further OT services needed at this time. Electronically Signed By: CLAYTON Velazquez/Bladimir CHT Reviewed/agree with student documentation: Therapist: Please Sign and return to therapist, thank you for your referral.
== END 2024-10-19 08:36 | disposition home or self-care (01) ==
LOC: HO.OT 08:00
PROVIDERS: PCP Internal Medicine
DX: S52.502D Unspecified fracture of the lower end of left radius, subsequent encounter for closed fracture with routine healing (principal); W01.0XXD Fall on same level from slipping, tripping and stumbling without subsequent striking against object, subsequent encounter
CPT/HCPCS: 97110; 97140; 97165

== ENCOUNTER 2024-09-30 08:24 | Outpatient (AMB) | payer MEDICARE, SELFPAY ==
--- OUTSIDE RECORDS SUMMARY | 2024-09-07 10:45 | XMS_ITS ---
Author Organization [facility] Address [address] [place] [address] Care Team Providers Care Director Security Risk Management Name Role Phone Cholo Abdi MD Primary Care Provider Hilaria Tafoya Unavailable [phone] Roro Elizabeth Unavailable [phone] Encounters Encounter Location Date Provider Diagnosis [address] [address] 09/07/2024 Roro Elizabeth Plan Of Treatment Next Appt Details Provider Name:Hilaria zimmerman, 12/16/2024 09:15:00 AM, [address] [place] [address], [phone], Progress Notes * Rona MATA PDOB: (69 yo F)Acc No.[id number]:09/07/2024 Progress Note Patient: Jer VILLATORO Rona Judd Provider: Armando Elizabeth DPM :1955 A ge:69 Y S ex:Female Date:09/07/2024 Address:[address] [place] [id number] Pcp:Cholo Abdi MD Subjective: * Chief Complaints: * * Medical History: Objective: * Vitals: Assessment: Plan: * Treatment: * Images: * The named appointment provid er may or may not be the originator of this progress note, and it is not deemed complete until electronically signed by the appointment provider. Sign off status: Pending * Provider: Armando Elizabeth DPM Date: 09/07/2024 Generated for Franklin Rowley/Haider on: 09/30/2024 08:35 AM EDT
[2024-09-30 08:28] VITALS: BMI 26.7
--- NOTE | 2024-09-30 08:28 | MHC.OFFVIS ---
Vital Signs 09/30/24 08:28 Height 5 ft 3.5 in Weight 153 lb BMI 26.7 Intake Visit Reasons: OV: left distal radius fx DOI 07/05/24 Intake Note: Rona is a 69 year old right hand dominant female who presents today for a follow up & ROM Check s/p Left Distal Radius Fracture 07/05/24. At her last visit she was transitioned into a velcro wrist brace to wear with daytime activities. States she has been attending O.T with improvement. She still has minor pain with supine and pornation movement. Allergies meperidine (From Demerol) Allergy (Unknown, Verified 09/30/24 08:32) Nausea and Vomiting HPI HPI OV: left distal radius fx DOI 07/05/24: Details: Rona is a 69 year old right hand dominant female who presents today for a follow up & ROM Check s/p Left Distal Radius Fracture 07/05/24. At her last visit she was transitioned into a velcro wrist brace to wear with daytime activities. States she has been attending O.T with improvement. She still has minor pain with supination movement, however patient reports that this has been steadily improving. [facility] Medical History Fracture of left distal radius Osteoporosis Surgical History History of appendectomy History of total right knee replacement Family History Mother Thyroid cancer Father Stroke Brother No problems noted. Sister No problems noted. Social History Household Members: Spouse and Children Household Members Other:: , adult daughter Alcohol intake: current Alcohol intake frequency: holidays/special occasions only Alcohol type: wine Patient Tobacco Use Status: Former Tobacco user Current occupational status: retired Current occupation: right hand dominant Review of Systems Const All systems reviewed & are unremarkable except as noted in HPI and below Physical Exam Vital Signs: BMI result Body Mass Index 26.7 Extrem Other: Patient is alert, oriented, and in no acute distress. Neuro: Normal sensation of the tips of all digits of the left hand at this time Vascular: Cap refill brisk Pain: No tenderness to palpation about the fracture site in the left distal radius No pain with range of motion ROM: Patient is able to make a closed fist and extend all digits of the left hand fully and without difficulty Patient is able to flex the wrist to approximately 60 degrees, and extend to approximately 50 degrees Patient can supinate to approximately 75 degrees, pronation full and intact Skin: No lacerations or abrasions. No evidence of maceration or skin breakdown General: No edema or ecchymosis noted No erythema, or evidence of infection. Psych: Appears grossly normal Affect normal Attitude cooperative Assessment & Plan Assessment & Plan (1) Fracture of left distal radius: Code(s): S52.502A - Unspecified fracture of the lower end of left radius, initial encounter for closed fracture Category: Medical Plan 1. Left distal radius fracture Date of injury 07/05/2024 Patient appears to be recovering very well from her injury Patient is educated about the typical recovery course At this time, patient is cleared to come out of the Velcro wrist splint with lower risk daytime activities, should continue to wear the Velcro wrist splint in crowded or high-risk situations for the next 3-4 weeks Gradual return back to full normal lifting over the next 3-4 weeks Patient understands this and is amenable to this plan Continue occupational therapy exercises for range of motion and gentle strengthening of the left wrist Follow-up as needed with any acute concerns Coding Level of Care Code Global (68526) Diagnoses Fracture of left distal radius S52.502A
--- OUTSIDE RECORDS SUMMARY | 2024-09-30 08:35 | XMS_ITS | Patient Health Record ---
Author Organization Cholo Abdi MD Address [address] [place], [place] [id number] Care Team Providers Care Equipment Application Specialist Name Role Phone Cholo Abdi Primary Care Provider [phone] Allergies No Known Allergies Results Component Value Reference Range Notes Liver Panel Reviewed date:12/04/2023 01:43:03 PM Interpretation: Performing Lab:[facility], [address] [place] [address] Notes/Report: Bilirubin Total 0.4 0.0-1.0 mg/dL Bilirubin Direct 0.2 0.0-0.5 mg/dL Aspartate Amino Transferase 32 5-31 U/L Alanine Aminotransferase 46 0-31 U/L Total Protein 6.9 6.5-8.0 g/dL Albumin Level 3.9 3.5-5.0 g/dL Alkaline Phosphatase 119 39-117 U/L Lipid Panel Reviewed date:12/04/2023 01:42:45 PM Interpretation: Performing Lab:[facility], [address] [place] [address] Notes/Report: Triglycerides 67 <150 mg/dL Desirable Triglyceride: [...] Panel Reviewed date:02/08/2024 05:21:38 PM Interpretation: Performing Lab:[facility], [address] [place] [phone] Notes/Report: Bilirubin Total 0.4 0.0-1.0 mg/dL Bilirubin Direct 0.2 0.0-0.5 mg/dL Aspartate Amino Transferase 26 5-31 U/L Alanine Aminotransferase 19 0-31 U/L Total Protein 6.8 6.5-8.0 g/dL Albumin Level 3.9 3.5-5.0 g/dL Alkaline Phosphatase 106 39-117 U/L Complete Blood Count Auto Di ff Reviewed date:09/12/2024 12:45:22 PM Interpretation: Performing Lab:[facility], [address] [place] [address] Notes/Report: White Blood Count 7.2 4.8-10.8 X10*3/uL [...] X10*3/uL NRBC Abs Auto 0.000 0.0-0.012 X10*3/uL Comprehensive Verner. Panel Fa st Reviewed date:09/15/2024 05:20:48 PM Interpretation: Performing Lab:[facility], [address] [place] [phone] Notes/Report: Sodium 142 135-145 mmol/L Potassium 3.9 3.3-5.1 mmol/L Chloride 111 96-108 mmol/L Carbon Dioxide 23 22-29 mmol/L Anion Gap 12 12-20 Blood Urea Nitrogen 15 9-16 mg/dL Creatinine 0.76 0.5-1.4 mg/dL Estimated Glomerular Filt Rate > 60 Chronic Kidney Disease: Estimated GFR < 60 mL/min/1.73m2 Severe Kidney Disease: Estimated GFR < 15 mL/min/1.73m2 Glucose Fasting 103 60-99 mg/dL A fasting glucose from 100-125 mg/dl is considered impaired (pre-diabetes). Calcium 8.9 8.4-10.2 mg/dL Bilirubin Total 0.5 0.0-1.0 mg/dL Aspartate Amino Transferase 26 5-31 U/L Alanine Aminotransferase 25 0-31 U/L Total Protein 6.5 6.5-8.0 g/dL Albumin Level 4.1 3.5-5.0 g/dL Alkaline Phosphatase 101 39-117 U/L Lipid Panel Reviewed date:09/12/2024 03:17:53 PM Interpretation: Performing Lab:[facility], [address] [place] [phone] Notes/Report: Triglycerides 94 <150 mg/dL Desirable Triglyceride: less than 150 mg/dL Borderline High Triglyceride 150-199 mg/dL High Triglyceride: 200-499 mg/dL Very High Triglyceride: greater than or equal to 5OO mg/dL Cholesterol 157 <200 mg/dL Desirable Cholesterol: less than 200 mg/dL Borderline High Cholesterol: 200-239 mg/dL High Cholesterol: greater than 239 mg/dL LDL Cholesterol Calculated 86 <100 mg/dL Desirable LDL: less than 100 mg/dL Near Optimal/Above Optimal LDL: 110-129 mg/dL Borderline High LDL: 130-159 mg/dL High LDL: 160-189 mg/dL Very High LDL: greater than or equal to 190 mg/dL HDL Cholesterol 53 >40 mg/dL Desirable HDL: greater than 40 mg/dL Note: This HDL assay may give artificially low results in patients with liver disease. Vitamin D 25-OH Total Reviewed date:09/13/2024 12:45:44 PM Interpretation: Performing Lab:[facility], [address] [place] [address] Notes/Report: Vitamin D 25-OH Total 41.6 >30 ng/mL Health Based Reference Values* < 20 ng/mL Deficient 20-30 ng/mL Insufficient > 30 ng/mL Sufficient *Irving CARSON. N Engl J Med. 2007;357:266-280 There is no well-established upper level of normal vitamin D levels. Some laboratories use 50 ng/mL as an upper limit of normal. However, toxicity is patient-dependent and may occur at any level. Careful correlation with the patient's presentation is necessary and, if there is concern for vitamin D toxicity, treatment should be considered irrespective of the serum level. Care must be taken in interpreting Vitamin [...] method such as LC-MS/MS. Microalbumin, Random Reviewed date:09/12/2024 03:20:22 PM Interpretation: Performing Lab:[address] [address] Notes/Report: Creatinine Urine 98.44 Microalbumin Urine 6.0 Microalbum/Creatinine Ratio Ur 6.0 <30 ug/mg cr Albumin/Creatinine Ratio Reference Ranges: Normal: < 30 ug/mg creatinine Microalbuminuria: 30 - 300 ug/mg creatinine Clinical Albuminuria: > 300 ug/mg creatinine Hemoglobin A1c Reviewed date:09/12/2024 12:39:24 PM Interpretation: Performing Lab:[address] [address] Notes/Report: Hemoglobin A1c % 5.7 <6.0 % [...] average glucose, using the formula of the Z0V-Ntwlzbe Average Glucose study (ADAG), Diabetes Care, Vol.31,#8, Oct. 2007 UA ClnCatch+Micro w/rflx Cul t Reviewed date:09/12/2024 03:22:04 PM Interpretation: Performing Lab:[address] [address] Notes/Report: Urine, Clean Catch Color Urine Yellow Appearance Urine Clear PH 6.0 5.0-9.0 Glucose Urine UA Negative Negative mg/dL Urine Blood Negative Negative Specific [place] - Urine 1.020 1.005-1.025 Urine Protein Negative Neg-Trace mg/dL Urine Ketones Negative Negative mg/dL Nitrite Urine Negative Negative Leukocyte Esterase Urine Small (1+) Negative RBC Urine 0-2 0-2 /HPF WBC Urine 0-5 0-5 /HPF Squamous Epithelial Cell Urine 0-2 0-2 /HPF Bacteria Urine None Seen None Seen Hyaline Casts Urine 0-2 0-2 /LPF XR hand LT min 3V Reviewed date:07/08/2024 12:47:48 PM Interpretation:referral entered Performing Lab: Notes/Report: [address] [address] XRay Report Signed Patient: Rona Mata MR#: [id number] : 1955 Acct:[id number] Age/Sex: 69 / F ADM Date: 07/07/24 Loc: HOPurviXRAY Attending Dr: Cholo Abdi MD Ordering Physician: Cholo Abdi MD Date of Service: 07/07/24 Procedure(s): XR hand LT min 3V Accession Number(s): [id number] cc: Cholo Abdi MD CLINICAL HISTORY: ecchymosis [...] in OV> 07/07/241652 DD/ 51 TD/TT: 07/07/241651 Chair Frame Builder: [address] [address] XRay Report Signed Patient: Sammy Mata MR#: [id number] : 1955 Acct:[id number] Age/Sex: 69 / F ADM Date: 07/07/24 Loc: HOCICI Attending Dr: Cholo Abdi MD Ordering Physician: Cholo Abdi MD Date of Service: 07/07/24 Procedure(s): XR sierra d LT min 3V Accession Number(s): [id number] cc: Cholo Abdi MD CLINICAL HISTORY: ecchymosis [...] Snyder MD Signed By: <Electronically signed by nEoch Snyder MD in OV> 07/07/241652 DD/ 51 TD/TT: 07/07/241651 Chair Frame Builder: XR wrist LT min 3V Reviewed date:07/08/2024 12:47:09 PM Interpretation:referral entered Performing Lab: Notes/Report: [place] [address] XRay Report Signed Patient: Rona Mata MR#: [id number] : 1955 Acct:[id number] Age/Sex: 69 / F ADM Date: 07/07/24 Loc: HO.XRAY Attending Dr: Cholo Abdi MD Ordering Physician: Cholo Abdi MD Date of Service: 07/07/24 Procedure(s): XR wrist LT min 3V Accession Number(s): [id number] cc: Cholo Abdi MD CLINICAL HISTORY: Ecchymosis [...] in OV> 07/07/241654 DD/ 53 TD/TT: 07/07/241653 Chair Frame Builder: [address] [address] XRay Report Signed Patient: Sammy Mata MR#: [id number] : 1955 Acct:[id number] Age/Sex: 69 / F ADM Date: 07/07/24 Loc: HO.XRAY Attending Dr: Cholo Abdi MD Ordering Physician: Cholo Abdi MD Date of Service: 07/07/24 Procedure(s): XR wri st LT min 3V Accession Number(s): [id number] cc: Cholo Abdi MD CLINICAL HISTORY: Ecchymosis [...] in OV> 07/07/241654 DD/ 53 TD/TT: 07/07/241653 Chair Frame Builder: XR wrist LT min 3V Reviewed date:07/08/2024 05:01:40 PM Interpretation: Performing Lab: Notes/Report: [facility] [address] [place] [address] XRay Report Signed Patient: Rona Mata MR#: [id number] : 1955 Acct:[id number] Age/Sex: 69 / F ADM Date: 07/08/24 Loc: HO.HOSX Attending Dr: Nikita ROSS Ordering Physician: Nikita Taalvera Date of Service: 07/08/24 Procedure(s): XR wrist LT min 3V Accession Number(s): [id number] cc: Nikita Talavera; Cholo Abdi MD EXAMINATION: [...] 07/08/24 1223 DD/ 1006 TD/TT: 07/08/24 1010 Chair Frame Builder: [facility] [address] [place] [address] XRay Report Signed Patient: Sammy Mata MR#: [id number] : 1955 Acct:[id number] Age/Sex: 69 / F ADM Date: 07/08/24 [facility]: Nikita ROSS Ordering Physician: Nikita Talavera Date of Service: 07/08/24 Procedure(s): XR wri st LT min 3V Accession Number(s): [id number] cc: Nikita Talavera ; Cholo Abdi MD [...] 07/08/24 1223 DD/ 1006 TD/TT: 07/08/24 1010 Chair Frame Builder: XR wrist LT min 3V Reviewed date:08/04/2024 04:26:45 PM Interpretation: Performing Lab: Notes/Report: [facility] [address] [place] [address] XRay Report Signed Patient: Rona Mata MR#: [id number] : 1955 Acct:[id number] Age/Sex: 69 / F ADM Date: 08/03/24 Loc: HO.HOSX Attending Dr: Nikita ROSS Ordering Physician: Nikita Talavera Date of Service: 08/03/24 Procedure(s): XR wrist LT min 3V Accession Number(s): [id number] cc: Nikita Talavera; Cholo Abdi MD EXAMINATION: [...] 08/03/24 1210 DD/ 0802 TD/TT: 08/03/24 0812 Chair Frame Builder: [facility] [address] [place] [address] XRay Report Signed Patient: Sammy Mata MR#: [id number] : 1955 Acct:[id number] Age/Sex: 69 / F ADM Date: 08/03/24 Loc: HO.HOSX Attending Dr: Nikita ROSS Ordering Physician: Nikita Talavera Date of Service: 08/03/24 Procedure(s): XR wri st LT min 3V Accession Number(s): [id number] cc: Nikita Talavera ; Cholo Abdi MD [...] Fidel Hebert MD 08/03/2024 12:10 PM EDT Dictated By: Fidel Hebert MD Signed By: <Electronically signed by Fidel Hebert MD in OV> 08/03/24 1210 DD/ 0802 TD/TT: 08/03/24 0812 Chair Frame Builder: Urine Culture Reviewed date:09/13/2024 12:47:16 PM Interpretation: Performing Lab:[facility], [address] [place] [phone] Notes/Report: Urine Culture Report Result Urine Culture < 10,000 cfu/ml Reason For Referral Reason Ecchymosis of forear m Diagnosis 1 Ecchymosis of forear m (R58) Referral Organization Cholo Abdi MD Referring Provider First Name Cholo Referring Provider Last Name Trinidad Referring Provider Speciality Internal M edicine Referred Provider Fatoumata Betancourt Referred Provider Specialty Hand Surgery General Notes Johanna Zengette 0 07/07/2024 03:27:23 PM >patient having her left wrist and hand x-rays, Karri Naya 07/08/2024 07:55:13 AM > referral info faxed with x-ray report, Karri, Naya 07/08/2024 09:25:24 AM > patient is aware of her appt Referral Priority Urgent Referral Appointment Date 07/08/2024 Medications Medication SIG (Take, Route, Frequency, Duration) Notes Start Date End Date Status Atorvastatin Calcium 40 MG 1 tablet Orally Once a day 09/17/2023 Active Vitamin D 2000 UNIT as directed Orally O nce a day 02/16/2014 Active Nitrostat 0.4 MG as directed Sublingu al every 5 mins times 3 for chest pain for 30 days 06/13/2021 Active Ibuprofen 400 MG 1 tablet with food o r milk as needed Orally twice a day for 90 days 01/03/2022 Active Tylenol 325 MG 1 tablet as [...] Vaccine Unknown 07/18/2020 Administered Stew Mathias at [employer] Influenza High Dose IM Intramuscular 11/30/2020 Administer [...] Problem Status W/U Status Risk Notes Problem 40348153 Vitamin D deficiency (E55.9) Active confirmed Problem 205800775 Osteopenia (M85.80) Active confirmed Problem Age related osteoporosis (19003316) Age related osteoporosis (M81.0) Active confirmed Problem 52373352 Ruptured lumbar disc (M51.26) Active confirmed Problem CAD (coronary artery disease) (I25.10) Active confirmed Problem 610054006 Elevated LDL cholesterol level (E78.00) Active confirmed Problem 007849763 Prediabetes (R73.03) Active confirmed Problem 200408149 Arthritis of knee (M17.10) Active confirmed Problem 8808937112209 C. difficile diarrhea (A04.72) Active confirmed Problem 62630725 Multiple subsegmental pulmonary emboli without acute cor pulmonale (I26.94) Active confirmed Problem 1367278743448 Status post total right knee replacement (Z96.651) Active confirmed Vital Signs Blood pressure diastolic 70 mm Hg 09/19/2024 jeanna ght is down 2 pounds since 07-14-24 Height 64 in 09/19/2024 weight is down 2 pounds since 07-14-24 Blood pressure systolic 108 mm Hg 09/19/2024 weig ht is down 2 pounds since 07-14-24 Weight 147 lbs 09/19/2024 weight is down 2 pounds since 07-14-24 BMI 25.23 kg/m2 09/19/2024 weight is down 2 pounds since 07-14-24 Encounters Encounter Location Date Provider Diagnosis Cholo Abdi MD [address] [place] [id number] 12/04/2023 Cholo Abdi Elevated LDL cholesterol level E78.00 ; CAD (coronary artery disease) I25.10 and Encounter for immunization Z23 Cholo Abdi MD [address] [place] [id number] 02/08/2024 Cholo Abdi CAD (coronary artery disease) I25.10 Cholo Abdi MD [address] [place] [id number] 09/12/2024 Cholo Abdi Vitamin D deficiency E55.9 ; Prediabetes R73.03 and CAD (coronary artery disease) I25.10 Cholo Adbi MD [address] [place] [id number] 12/11/2023 Cholo Abdi Cervical disc diseas e M50.90 ; CAD (coronary artery disease) I25.10 and Multiple subsegmental pulmonary emboli without acute cor pulmonale I26.94 Cholo Abdi MD [address] [place] [id number] 06/10/2024 Cholo Abdi Arthritis of knee M17.10 ; Multiple subsegmental pulmonary emboli without acute cor pulmonale I26.94 and CAD (coronary artery disease) I25.10 Cholo Abdi MD [address] [place] [id number] 07/07/2024 Cholo Abdi Ecchymosis of forear m R58 and Facial injury, initial encounter S09.93XA Cholo Abdi MD [address] [place] [id number] 07/14/2024 Cholo Abdi Hematoma T14.8XXA an d Shoulder injury S49.90XA Cholo Abdi MD [address] [place] [id number] 09/19/2024 Cholo Abdi CAD (coronary artery disease) I25.10 ; Prediabetes R73.09 ; Vitamin D deficiency E55.9 and Elevated LDL cholesterol level E78.00 Cholo Abdi MD [address] [place] [id number] 09/12/2024 Cholo Abdi Arthritis of knee M17.10 Assessments Encounter Date Diagnosis (ICD Code) Assessment Notes Treatment Notes Treatment Clinical Notes Section Notes 12/04/2023 Elevated LDL cholesterol level (ICD-10 - E78.00) 12/04/2023 CAD (coronary artery disease) (ICD-10 - I25.10) 02/08/2024 CAD (coronary artery disease) (ICD-10 - I25.10) 09/12/2024 Vitamin D deficiency (ICD-10 - E55.9) 12/11/2023 Cervical disc disease (ICD-10 - M50.90) [...] R58) pending diagnostic testing, will refer to [facility] ortho. if they can't see her today/ x-ray orders given to patient 07/07/2024 Facial injury, initial encounter (ICD-10 - S09.93XA) just observe 07/14/2024 Hematoma (ICD-10 - T14.8XXA) use warm compresses and no other treatment needed 07/14/2024 Shoulder injury (ICD-10 - S49.90XA) to make sure she keeps range of motion 09/19/2024 CAD (coronary artery disease) (ICD-10 - I25.10) ws not couaing any problems 09/19/2024 Prediabetes (ICD-10 - R73.09) doing well with good a1c, no need for medication at this time 09/12/2024 Arthritis of knee (ICD-10 - M17.10) 12/04/2023 Encounter for immunization (ICD-10 - Z23) 09/12/2024 Prediabetes (ICD-10 - R73.03) 12/11/2023 Multiple subsegmental pulmonary emboli without acute cor pulmonale (ICD-10 - I26.94) if she had another knee done would suggest that she have a filter temporarily 06/10/2024 CAD (coronary artery disease) (ICD-10 - I25.10) not having any pains but needed a refill on ntg 09/19/2024 Vitamin D deficiency (ICD-10 - E55.9) stable, will continue current regiment 09/12/2024 CAD (coronary artery disease) (ICD-10 - I25.10) 09/19/2024 Elevated LDL cholesterol level (ICD-10 - E78.00) stable, will continue current regiment Plan Of Treatment Pending Test Test Name Order Date Electrocardiogram (EKG) 03/16/2015 Electrocardiogram (EKG) 04/04/2016 Electrocardiogram (EKG) 04/30/2018 MAMMOGRAM DIGITAL BILATERAL SCREEN 10/05 MAMMOGRAM DIGITAL BILATERAL SCREEN 05/12 US SOFT TISSUE 09/22/2022 US SOFT TISSUE 09/17/2023 US ARM LT VENOUS DOPPLER 09/22/2022 US LEG BILATERAL VENOUS DOPPLER 12/01/19 CA dobutamine stress w nancy 06/13/2021 XR DEXA axial skeleton 05/21/2020 CA stress test 05/28/2021 Next Appt Details Provider Name:Cholo Brown ier, 03/24/2025 08:15:00 AM, [address] [place] [address], [address], [phone], Provider Name:Cholo Brown ier, 09/14/2025 07:15:00 AM, [address] [place] [address], [place] [address], [place], [place], [phone], Provider Name:Cholo Brown ier, 09/21/2025 08:30:00 AM, [address] [place] [address], [place] [address], [place], [place], [phone], Insurance Providers Payer Name Payer Address Payer Phone Subscriber Number Group Number Insured Name Patient Relationship to Insured Coverage Start Date Coverage End Date [employer] [address] [place] [address] [id number] ESPERANZASAMMY FUENTESA Self - patient is the insured [employer] [address] [place], [place] [id number] [phone] [id number] ESPERANZA RONA Self - patient is the insured Medical (General) History Medical History History ICD Code discussed, PHARMACEUTICAL PHYSICIAN & Mammo info to pt isabella so appt at [facility] colonoscopy done 06/16/2006, repeat in 10 years; Negative Cologuard 10/28/2018. cologuard negative 09/25/22
--- OUTSIDE RECORDS SUMMARY | 2024-09-30 08:35 | XMS_ITS | Encounter Summary ---
Author Organization [facility] Address [address] [place] [address] Phone Care Team Providers Care Photo Mask Inspector Name Role Phone Cholo Abdi MD Primary Care Provider Encounter Details Date Type Department Care Team (Late st Contact Info) Description 06/13/2020 Procedure Pass [facility], Ct Scan - [address] [address] Social History Tobacco Use Types Packs/Day Years Used Date Smoking Tobacco: Former Cigarettes Q uit: 1992 Smokeless Tobacco: Never Comments:quit 25 years ago, never smoked more than socially Alcohol Use Standard Drinks/Week Comments Never 0 (1 standard drink = 0.6 oz pur e alcohol) Comments No Sex and Gender Information Value Date Recorded Sex Assigned at Not on file Legal Sex Female 11:03 AM EDT Gender Identity Not on file Sexual Orientation Not on file documented as of this encounter Plan of Treatment Not on file documented as of this encounter Visit Diagnoses Not on filedocumented in this encounter Care Teams Photo Mask Inspector Relationship Specialty Start Date End Date Cholo Abdi MD [address] [place] [address] [place] [address] PCP - General Internal Medicine 11/29/18 documented as of this encounter Additional Source Comments The information contained in this document represents components of the legal health record. It is not the complete legal health record.[facility]
== END 2024-09-30 08:58 | disposition home or self-care (01) ==
LOC: HO.HOS 08:25
PROVIDERS: PCP Internal Medicine
DX: S52.502A Unspecified fracture of the lower end of left radius, initial encounter for closed fracture (principal)
CPT/HCPCS: 99024

== ENCOUNTER → 2024-09-30 08:24 | Outpatient (BNVA) | payer MEDICARE, SELFPAY | PROVIDERS: PCP Internal Medicine | DX: S52.502D Unspecified fracture of the lower end of left radius, subsequent encounter for closed fracture with routine healing (principal) | CPT/HCPCS: 99212 ==